=== PATIENT | female | born 1945 | race Caucasian/White ===

== ENCOUNTER 2017-10-08 10:43 | Observation (INO) | payer OTHER ==
[2017-10-08] MEDS ORDERED: NALOXONE 0.4 MG/ML VIAL ONE ×2 (10:52→13:26)
--- NOTE | 2017-10-08 11:22 | RAD REPORT ---
EXAM DESCRIPTION: CT - CTHCSPWOC - 10/08/2017 11:10 am CLINICAL HISTORY: Trauma, fall, head and neck injury. COMPARISON: None. TECHNIQUE: Axial 5 mm thick images of the head were obtained. Axial 2 mm thick images of the cervical spine were obtained with sagittal and coronal reconstruction images generated and reviewed. All CT scans are performed using dose optimization technique as appropriate and may include automated exposure control or mA/KV adjustment according to patient size. FINDINGS: CT HEAD WITHOUT CONTRAST: No acute hemorrhage, hydrocephalus or extra-axial collection is identified.[id number] brain atr ophy.No areas of brain edema or midline shift. The paranasal sinuses and mastoids are clear.The calvarium is intact. CT CERVICAL SPINE WITHOUT CONTRAST: No fracture or subluxation.No prevertebral soft tissues swelling is identified. Moderate lower cervic al degenerative changes. IMPRESSION: No acute intracranial or cervical spine findings.
[2017-10-08] MEDS ORDERED: NA CHLORIDE 0.9% 1,000 ML ONE ×2 (11:30→13:26)
[2017-10-08 11:38] LABS: Absolute Lymphocytes (CBC) 0.9 K/uL (0.7-4.9); Absolute Monocytes 0.4 K/uL (0.1-1.3); Basophils % 0.6 % (0-1.3); Eosinophils % 1.1 % (0-4.4); Hematocrit 42.2 % (36.0-45.0); Lymphocytes % 16.1 % (15.3-44.8); MCH 29.1 pg (27.0-35.0); MCV 86.1 fL (80-100); Monocytes % 7.4 % (3.3-12.3)
[2017-10-08 11:42] LABS: Protime INR 1.12
[2017-10-08 11:43] LABS: Potassium 3.8 mEq/L (3.6-5.0)
--- NOTE | 2017-10-08 11:43 | RAD REPORT ---
EXAM DESCRIPTION: RAD - Chest Single View - 10/08/2017 11:31 am CLINICAL HISTORY: Fall, chest pain COMPARISON: 06/25/2017 FINDINGS: Portable technique limits examination quality. The lungs are grossly clear. The heart is normal in size. No displaced fractures. IMPRESSION: No acute intrathoracic process suspected.
--- NOTE | 2017-10-08 11:44 | RAD REPORT ---
EXAM DESCRIPTION: RAD - Pelvis - 10/08/2017 11:31 am CLINICAL HISTORY: Fall, pelvic pain COMPARISON: 12/02/2015 FINDINGS: No acute fracture or dislocation seen. No aggressive marrow pattern.
[2017-10-08 11:49] LABS: Albumin 3.9 g/dL (3.2-5.5); Bilirubin Direct 0.4 mg/dL (0-0.2); Bilirubin Total 1.1 mg/dL (0.3-1.2); Protein, Total 8.1 g/dL (6.0-8.3)
[2017-10-08 12:28] LABS: CKMB Creatine Kinase MB 46.2 ng/ml (0.3-4.0)
[2017-10-08 12:37] LABS: Barbiturates NEGATIVE; Benzodiazepines POSITIVE; Cocaine NEGATIVE; METHAMPHETAM NEGATIVE; Opiates NEGATIVE; Phencyclidine NEGATIVE; THC Cannibis NEGATIVE
[2017-10-08 13:04] LABS: Urine Blood TRACE (NEG); Urine Glucose 2+ (NEG); Urine Protein NEGATIVE (NEG); Urine Specific Gravity 1.015 (1.005-1.030)
[2017-10-08] MEDS ORDERED: ONDANSETRON 4 MG/2 ML VIAL IV PRN (13:59)
[2017-10-08] MEDS: NA CHLORIDE 0.9% 1,000 ML IV SCH ×3 (14:00→23:50)
[2017-10-08] MEDS ORDERED: D50W 25 GM/50 ML SYRINGE IV PRN (14:04)
[2017-10-08] MEDS ORDERED: GLUCAGON 1 MG/VIAL IM PRN (14:04)
--- NOTE | 2017-10-08 14:07 | ER ---
Nurse's Notes [facility] Name: Lala Wall Age: 72 yrs Sex: Female : 1945 Arrival Date: 10/08/2017 Time: 10:45 Bed 2 Private MD: Diagnosis: Altered mental status, unspecified;Opioid abuse with intoxication Presentation: 10/08 10:46 Presenting complaint: EMS states: EMS states patient fell approximately 40 minutes ae1 prior to arrival, patient denies pain, denies LOC, patient is drowsy. States she feels weak. Care prior to arrival: V/S 160/90, 98%RA, FSBS 328. Mechanism of Injury: Fall. 10:46 Acuity: RENZO 3 ae1 10:46 Method Of Arrival: EMS: [facility] ae1 12:14 Transition of care: patient was not received from another setting of care. Onset of ae1 symptoms is unknown. Initial Sepsis Screen: Does the patient meet any 2 criteria? Altered Mental Status. Does the patient have a suspected source of infection? No. Patient's initial sepsis screen is negative. Historical: - Allergies: 14:42 No Known Allergies; ae1 - Home Meds: 12:20 Pain Pump - Morphine [Active]; Dilaudid 8 mg four times a day [Active]; ae1 - PMHx: 12:20 Chronic pain; Diabetes - NIDDM; Hypertension; ae1 - PSHx: 12:20 back surgery; ae1 - Immunization history:: Adult Immunizations not up to date. - Social history:: Smoking status: Patient uses tobacco products, smokes one-half pack cigarettes per day. Screenin:10 Abuse screen: Denies threats or abuse. Nutritional screening: No deficits noted. ae1 Tuberculosis screening: No symptoms or risk factors identified. Fall Risk Fall in past 12 months (25 points). Secondary diagnosis (15 points) Patient is weak. . IV access (20 points). Ambulatory Aid- None/Bed Rest/Nurse Assist (0 pts). Gait- Weak (10 pts.). Mental Status- Overestimates/Forgets Limitations (15 pts.). Assessment: 11:07 General: Appears in no apparent distress. unkempt, Behavior is cooperative, drowsy, ae1 Patient responds to verbal stimuli . Pain: Denies pain. Neuro: Level of Consciousness is obeys commands, lethargic, Oriented to person, place. Cardiovascular: Heart tones S1 S2 present. Respiratory: Airway is patent Respiratory effort is even, unlabored, shallow, Respiratory pattern is regular, Breath sounds are clear bilaterally. GI: Patient arrived soiled in own BM and saturated in urine. Clothing saturated and soiled with stool. EENT: Oral mucosa is dry. Poor dentition noted. Derm: Skin is pale. Musculoskeletal: No signs and/or symptoms reported regarding the musculoskeletal system. 11:07 Derm: Skin to buttocks appears mottled. ae1 11:30 Reassessment: Patient soiled the bed with urine and stool, area cleansed, adult brief ae1 applied, new bedding applied. 12:12 Reassessment: Patient and/or family updated on plan of care and expected duration. Pain ae1 level reassessed. General: Behavior is agitated, combative, restless. : Urine is clear. 12:21 Reassessment: Patient is restless, continues to pull at monitoring equipment, and ae1 remove equipment. IV site wrapped in BRYAN wrap. Provider notified, no new orders received. 13:24 Reassessment: Patient appears more relaxed, resting with eyes closed, respirations even ae1 and unlabored, and son are at bedside. 15:09 Reassessment: Report called to Huey Ceron RN, registration notified that report has been ae1 called. 15:21 Reassessment: at bedside explained to nurse that patient sits on heating pads ae1 "constantly" and sustains meadows to the buttocks. Nurse relayed this information via telephone to Dr. Chery, new orders received, orders and new finding relayed to receiving nurse via telephone. Vital Signs: 10:50 BP 152 / 88; Pulse 93; Resp 15; Pulse Ox 96% on R/A; Weight 81.65 kg (R); ae1 12:15 BP 162 / 97; Pulse 98; Resp 16; Pulse Ox 96% on R/A; ae1 12:24 Temp 97.7(TE); ae1 14:36 BP 166 / 90; Pulse 97; Resp 17; Pulse Ox 98% on R/A; ae1 Edward Coma Score: 10:50 Eye Response: to voice(3). Verbal Response: oriented(5). Motor Response: obeys ae1 commands(6). Total: 14. Trauma Score (Adult): 10:50 Eye Response: to voice(0); Verbal Response: oriented(1); Motor Response: obeys ae1 commands(2); Systolic BP: > 89 mm Hg(4); Respiratory Rate: 10 to 29 per min(4); Almond Score: 14; Trauma Score: 11 ED Course: 10:45 Patient arrived in ED. ae1 10:48 Carlos Archuleta PA is PHCP. cp 10:48 Carlos Grimes MD is Attending Physician. cp 10:50 Triage completed. ae1 11:[address] via stretcher. ae1 11:08 CT completed. Patient moved back from CT. cw1 11:09 CT Head C Spine In Process Unspecified. EDMS 11:11 Inserted saline lock: 20 gauge in right antecubital area, using aseptic technique. ae1 Blood collected. 11:11 Arm band placed on right wrist. ae1 11:25 Jonathan Alvarenga RN is Primary Nurse. ae1 11:28 X-ray completed. Patient tolerated procedure poorly. kp1 11:29 XRAY Chest (1 view) In Process Unspecified. EDMS 11:29 XRAY Pelvis In Process Unspecified. EDMS 12:13 No provider procedures requiring assistance completed. ae1 12:13 Placed in gown. Bed in low position. Side rails up X2. Adult w/ patient. Pulse ox on. ae1 NIBP on. Warm blanket given. 12:22 Giordano cath inserted, using sterile technique, 16 Fr., by nh, balloon inflated, to ae1 gravity drainage, urine specimen collected. 12:28 Notified Nurse Practitioner and/or Physician Email Developer of a critical lab result(s), iw CKMB=46.2. 14:05 Dorothea Chery MD is Hospitalizing Provider. cp 15:17 Patient admitted, IV remains in place. ae1 Administered Medications: 10:58 Drug: NARcan 0.4 mg Route: IVP; Site: right antecubital; ae1 11:06 Follow up: Response: Other; Patient is becoming more alert. ae1 11:36 Drug: NS 0.9% 1000 ml Route: IV; Rate: 1 bolus; Site: right antecubital; ae1 15:18 Follow up: IV Status: Completed infusion ae1 13:28 Drug: NS 0.9% 1000 ml Route: IV; Rate: 100 ml/hr; Site: right forearm; ae1 15:00 Follow up: IV Status: Infusion continued upon admission ae1 13:29 Drug: NARcan 0.4 mg Route: IVP; Site: right antecubital; ae1 14:58 Follow up: Response: Other; Patient appears more alert. ae1 Point of Care Testing: Blood Glucose: 11:11 Blood Glucose: 298 mg/dL; ae1 Ranges: Intake: Output: 14:55 Urine: 1600ml (Giordano); Total: 1600ml. ae1 Outcome: 14:06 Decision to Hospitalize by Provider. cp 15:16 Admitted to Med/surg accompanied by tech, family with patient, via stretcher, room 225, ae1 with chart, Report called to LEO Arzate 15:16 Condition: stable 15:16 Instructed on the need for admit, Instructions given to Demonstrated understanding of instructions. 15:18 Patient left the ED. ae1 Signatures: Dispatcher [employer] Katt Dobson RN RN iw Woodley, Crystal cw1 Carlos Archuleta PA PA Jonathan Boyd RN RN ae1 Kristel Martin kp1 Corrections: (The following items were deleted from the chart) 12:22 12:21 Reassessment: Patient is restless, continues to pull at monitoring equipment. ae1 ae1
--- NOTE | 2017-10-08 14:07 | EDPHYS ---
Physician Documentation [facility] Name: Lala Wall Age: 72 yrs Sex: Female : 1945 Arrival Date: 10/08/2017 Time: 10:45 Bed 2 Private MD: ED Physician Carlos Grimes HPI: 10/08 11:00 This 72 yrs old Female presents to ER via EMS with complaints of Fall Injury, cp General Weakness. 11:00 The patient presents with decreased mental status. cp 11:00 Onset: The symptoms/episode began/occurred at an unknown time. Possible causes: drug cp use, narcotics. Associated signs and symptoms: Pertinent negatives: abdominal pain, agitation, vomiting. Current symptoms: In the emergency department the patient's symptoms are unchanged from the initial presentation, despite EMS interventions. Patient's baseline: Neuro: alert and fully oriented, Motor: no deficits, Ambulation: walks without assistance, Speech: normal. The patient has experienced similar episodes in the past, a few times. Historical: - Allergies: 14:42 No Known Allergies; ae1 - Home Meds: 12:20 Pain Pump - Morphine [Active]; Dilaudid 8 mg four times a day [Active]; ae1 - PMHx: 12:20 Chronic pain; Diabetes - NIDDM; Hypertension; ae1 - PSHx: 12:20 back surgery; ae1 - Immunization history:: Adult Immunizations not up to date. - Social history:: Smoking status: Patient uses tobacco products, smokes one-half pack cigarettes per day. ROS: 11:05 Constitutional: Negative for fever. cp 11:05 Unable to obtain ROS due to altered mental status. cp Exam: 11:12 Constitutional: The patient appears non-diaphoretic, well developed, well nourished. cp 11:12 Head/Face: Normocephalic, atraumatic. cp 11:12 Eyes: Periorbital structures: appear normal, Pupils: dilated, bilaterally, sluggish, Conjunctiva: normal, no exudate, no injection, Sclera: no appreciated abnormality, Lids and lashes: appear normal, bilaterally. 11:12 ENT: External ear(s): are unremarkable, Ear canal(s): are normal, clear, TM's: bulging, is not appreciated, bilaterally, dullness, bilaterally, erythema, is not appreciated, bilaterally, Nose: is normal, Mouth: Lips: moist, Oral mucosa: pink and intact, moist, Posterior pharynx: Airway: no evidence of obstruction, patent, Uvula: midline, swelling, is not appreciated, erythema, is not appreciated, exudate, is not appreciated. 11:12 Neck: C-spine: vertebral tenderness, is not appreciated, crepitus, is not appreciated, ROM/movement: is normal, is supple, without pain, no range of motions limitations, no nuchal rigidity. 11:12 Chest/axilla: Inspection: normal, Palpation: is normal, no crepitus, no tenderness. 11:12 Cardiovascular: Rate: normal, Rhythm: regular, Pulses: Pulses are 2+ in right radial artery and left radial artery. Edema: is not appreciated, JVD: is not appreciated. 11:12 Respiratory: the patient does not display signs of respiratory distress, Respirations: normal, no use of accessory muscles, no retractions, no splinting, no tachypnea, labored breathing, is not present, Breath sounds: are clear throughout, no decreased breath sounds, no stridor, no wheezing. 11:12 Abdomen/GI: Inspection: abdomen appears normal, Bowel sounds: active, all quadrants, Palpation: abdomen is soft and non-tender, in all quadrants, rebound tenderness, is not appreciated, voluntary guarding, is not appreciated, involuntary guarding, is not appreciated. 11:12 Back: vertebral tenderness, is not appreciated. 11:12 Musculoskeletal/extremity: Exam is negative for decreased range of motion, deformity, injury. 11:12 Skin: cellulitis, is not appreciated, no rash present. 11:12 Neuro: Orientation: to person, place, Mentation: sleepy, Motor: moves all fours, strength is normal. 12:00 ECG was reviewed by the Attending Physician. cp Vital Signs: 10:50 BP 152 / 88; Pulse 93; Resp 15; Pulse Ox 96% on R/A; Weight 81.65 kg (R); ae1 12:15 BP 162 / 97; Pulse 98; Resp 16; Pulse Ox 96% on R/A; ae1 12:24 Temp 97.7(TE); ae1 14:36 BP 166 / 90; Pulse 97; Resp 17; Pulse Ox 98% on R/A; ae1 Edward Coma Score: 10:50 Eye Response: to voice(3). Verbal Response: oriented(5). Motor Response: obeys ae1 commands(6). Total: 14. Trauma Score (Adult): 10:50 Eye Response: to voice(0); Verbal Response: oriented(1); Motor Response: obeys ae1 commands(2); Systolic BP: > 89 mm Hg(4); Respiratory Rate: 10 to 29 per min(4); [place] Score: 14; Trauma Score: 11 MDM: 10:48 Patient medically screened. cp 13:25 Physician consultation: Dorothea Chery MD was contacted at 13:25, regarding admission, cp to the telemetry unit. patient's condition, and will see patient in ED, shortly. 13:30 Data reviewed: vital signs, nurses notes, lab test result(s), EKG, radiologic studies, cp CT scan, plain films. 13:30 Test interpretation: by ED physician or midlevel provider: ECG, plain radiologic cp studies. 10/08 10:56 Order name: Basic Metabolic Panel 10/08 10:56 Order name: BNP; Complete Time: 12:06 10/08 10:56 Order name: CBC with Diff; Complete Time: 12:06 10/08 12:06 Interpretation: Normal except: RBC 4.90; MPV 7.0; RAVI% 74.8. 10/08 10:56 Order name: Ckmb; Complete Time: 12:32 cp 10/08 12:32 Interpretation: Abnormal: CKMB 46.2. 10/08 10:56 Order name: CPK; Complete Time: 12:32 10/08 12:32 Interpretation: Abnormal: CPK 922. 10/08 10:56 Order name: LFT's; Complete Time: 12:29 10/08 12:29 Interpretation: Normal except: SGOT 48; BILID 0.4; GLOB 4.2; A/G 0.9. 10/08 10:56 Order name: Magnesium; Complete Time: 12:58 10/08 10:56 Order name: PT-INR; Complete Time: 12:06 10/08 10:56 Order name: Ptt, Activated; Complete Time: 12:06 10/08 10:56 Order name: Troponin (emerg Dept Use Only); Complete Time: 12:06 10/08 10:56 Order name: UDS; Complete Time: 12:58 10/08 12:58 Interpretation: Normal except: BZO POSITIVE. 10/08 10:56 Order name: Basic Metabolic Panel; Complete Time: 12:32 [facility] 10/08 12:32 Interpretation: Normal except: GLUC 315; GFR 70. 10/08 12:41 Order name: Urine Dipstick--Ancillary (enter results) 10/08 12:41 Order name: Urine --Ancillary (enter results) 10/08 10:56 Order name: XRAY Chest (1 view); Complete Time: 12:06 10/08 10:56 Order name: EKG; Complete Time: 10:57 10/08 10:56 Order name: Cardiac monitoring; Complete Time: 11:06 10/08 10:56 Order name: EKG - Nurse/Tech; Complete Time: 12:12 10/08 10:56 Order name: IV Saline Lock; Complete Time: 11:06 10/08 10:56 Order name: Labs collected and sent; Complete Time: 12:24 10/08 10:56 Order name: XRAY Pelvis; Complete Time: 12:06 10/08 10:56 Order name: CT Head C Spine; Complete Time: 12:06 10/08 12:41 Order name: Urine Dipstick-Ancillary; Complete Time: 13:19 [facility] 10/08 12:41 Order name: Urine --Ancillary; Complete Time: 13:19 [facility] 10/08 14:00 Order name: Heart Healthy [facility] 10/08 14:01 Order name: Physical Therapy Consult [facility] 10/08 10:56 Order name: O2 Per Protocol; Complete Time: 11:06 10/08 10:56 Order name: O2 Sat Monitoring; Complete Time: 11:06 10/08 10:56 Order name: Urine Dipstick-Ancillary (obtain specimen); Complete Time: 12:12 10/08 10:56 Order name: Giordano; Complete Time: 12:12 cp EC:00 Rate is 98 beats/min. Rhythm is regular. KS interval is normal. QRS interval is normal. cp QT interval is normal. T waves are Inverted in leads V2, V3. Interpreted by me. Reviewed by me. Administered Medications: 10:58 Drug: NARcan 0.4 mg Route: IVP; Site: right antecubital; ae1 11:06 Follow up: Response: Other; Patient is becoming more alert. ae1 11:36 Drug: NS 0.9% 1000 ml Route: IV; Rate: 1 bolus; Site: right antecubital; ae1 15:18 Follow up: IV Status: Completed infusion ae1 13:28 Drug: NS 0.9% 1000 ml Route: IV; Rate: 100 ml/hr; Site: right forearm; ae1 15:00 Follow up: IV Status: Infusion continued upon admission ae1 13:29 Drug: NARcan 0.4 mg Route: IVP; Site: right antecubital; ae1 14:58 Follow up: Response: Other; Patient appears more alert. ae1 Point of Care Testing: Blood Glucose: 11:11 Blood Glucose: 298 mg/dL; ae1 Ranges: Critical Glucose Levels:Adult <50 mg/dl or >400 mg/dl <40 mg/dl or >180 mg/dl Disposition: 16:00 Chart complete. cp Disposition: 10/08/17 14:06 Hospitalization ordered by Dorothea Chery for Observation. Preliminary diagnosis are Altered mental status, unspecified, Opioid abuse with intoxication. - Bed requested for Telemetry/MedSurg (observation). - Status is Observation. ae1 - Condition is Stable. - Problem is new. - Symptoms have improved. UTI on Admission? No Addendum: 10/10/2017 08:50 Co-signature as Attending Physician, Carlos Grimes MD I agree with the assessment and c chahal plan of care. Signatures: Dispatcher [employer] EDFL Carlos Grimes MD MD cha Page, Corey, PA PA cp Jonathan Alvarenga, LEO RN ae1 Bhavya Howard
--- NOTE | 2017-10-08 14:37 | P.HP ---
Certification for Inpatient Patient admitted to: Observation With expected LOS: <2 Midnights Patient will require the following post-hospital care: None Practitioner: I am a practitioner with admitting privileges, knowledge of patient current condition, hospital course, and medical plan of care. Services: Services provided to patient in accordance with Admission requirements found in Title 42 Section 412.3 of the Code of Federal Regulations Patient History Date of Service: 10/08/17 Primary Care Provider: Dr Sandoval. Reason for admission: Fall History of Present Illness: 72-year-old female with significant past medical history of diabetes, hypertension, chronic pain syndrome who sees pain management doctor. Presented to the ED complaining of having some fallen at home. Patient's at bedside states that she has been not acting herself and this morning earlier around 4:00 a.m. was weak and fell on the floor. Patient was alert and oriented at that time it has been asked for her to get up she stated however that she would like to just lay there. At around 6 or 7 o'clock in the morning. Again patient was still on the floor in this tried to get her up however they were not successful. EMS was called who helped the patient up to the bathroom and then patient was brought over to the hospital after she consented to come to the hospital. Patient is a chronic pain syndrome patient who sees a pain management doctor for her morphine pump that she has implanted. In addition patient also takes Dilaudid 4 mg q.4 hr in a day. He does have past history of abuse of pain medication. Currently had a pain pill box under her undergarment which was only filled with 1 pill of 12th total pills. Patient states that she took 1 Dilaudid pill this morning and that is it. However states that she does not know how much she took and he does not recall either as she does not sharing information with him. Allergies No Known Allergies Allergy (Unverified 12/03/15 05:56) Home Medications: Amitriptyline HCl 75 mg PO BID 11/15/16 Baclofen 10 mg PO DAILY 11/15/16 Gabapentin 600 mg PO Q6H 11/15/16 Hydromorphone HCl [Dilaudid] 8 mg PO TID 11/15/16 Metformin HCl [Glucophage] 500 mg PO BID 11/15/16 Temazepam [Restoril] 30 mg PO BEDTIME 11/15/16 - Past Medical/Surgical History Diabetic: Yes -: HTN -: DM -: gall bladder -: hysterectomy -: back surgery - Social History Alcohol use: No CD- Drugs: No Caffeine use: No Review of Systems General: As per HPI Physical Examination - Physical Exam General: Alert, In no apparent distress, Oriented x3 HEENT: Atraumatic Neck: Supple Respiratory: Clear to auscultation bilaterally, Normal air movement Cardiovascular: Normal pulses, Regular rate/rhythm Gastrointestinal: Normal bowel sounds, Soft and benign, Non-distended Musculoskeletal: No clubbing Integumentary: No rashes Neurological: Normal speech, Normal tone, Abnormal strength - Studies Laboratory Data (last 24 hrs) 10/08/17 11:05: PT 13.2 H, INR 1.12, APTT 28.9 10/08/17 11:05: WBC 5.3, Hgb 14.3, Hct 42.2, Plt Count 160 10/08/17 11:05: B-Natriuretic Peptide 44 10/08/17 11:05: Sodium 136, Potassium 3.8, BUN 13, Creatinine 0.81, Glucose 315 H, Magnesium 2.0, Total Bilirubin 1.1, AST 48 H, ALT 43, Alkaline Phosphatase 86 Assessment and Plan - Problems (Diagnosis) (1) Fall Current Visit: Yes Status: Acute Plan: Fall at home. Most likely 2.2 to pain medication abuse -xray negative for fracture -Fall precautions -PT consulted Qualifiers: Encounter type: initial encounter Qualified Code(s): W19.XXXA - Unspecified fall, initial encounter (2) Rhabdomyolysis Current Visit: Yes Status: Acute Plan: non Traumatic Rhabdomyolysis -CK elevated to 995. -IV fluids and avoid nephrotoxic agent -Repeat CK in AM Qualifiers: Rhabdomyolysis type: non-traumatic Qualified Code(s): M62.82 - Rhabdomyolysis (3) Drug abuse Current Visit: Yes Status: Acute Plan: Overdose of Pain medication. pt has a pill box she keeps in her undergarment. Only has 1 pill of 12 left -Narcan x 2 in the ED -Hold Dilaudid (4) Chronic pain disorder Current Visit: No Status: Chronic (5) Diabetes Current Visit: No Status: Chronic Qualifiers: Diabetes mellitus type: type 2 Diabetes mellitus driller hand insulin use: without [facility] use Diabetes mellitus complication status: without complication Qualified Code(s): E11.9 - Type 2 diabetes mellitus without complications (6) HTN (hypertension) Current Visit: No Status: Chronic Qualifiers: Hypertension type: essential hypertension Discharge Plan: Home Plan to discharge in: 24 Hours - Advance Directives Does patient have a Living Will: No Does patient have a Durable POA for Healthcare: No - Code Status/Comfort Care Code Status Assessed: Yes Critical Care: No
[2017-10-08] MEDS: INSULIN -REGULAR HUMAN 50 UNIT/0.5 ML ML SQ SCH ×2 (16:17→21:28)
[2017-10-09 06:14] LABS: Absolute Lymphocytes (CBC) 1.6 K/uL (0.7-4.9); Absolute Monocytes 0.3 K/uL (0.1-1.3); Absolute Neutrophil 2.9 K/uL (1.8-8.0); Basophils % 0.7 % (0-1.3); Eosinophils % 2.2 % (0-4.4); Hematocrit 38.2 % (36.0-45.0); Lymphocytes % 32.1 % (15.3-44.8); MCH 28.7 pg (27.0-35.0); MCV 86.1 fL (80-100); MPV 7.1 fL (7.6-11.3); Monocytes % 6.9 % (3.3-12.3); RBC Red Blood Cell Count 4.43 M/uL (3.86-4.86)
[2017-10-09 06:46] LABS: Albumin 3.2 g/dL (3.2-5.5); Bilirubin Total 1.7 mg/dL (0.3-1.2); Magnesium 2.1 mg/dL (1.8-2.5); Phosphorus 2.7 mg/dL (2.5-4.3); Potassium 3.4 mEq/L (3.6-5.0); Protein, Total 6.4 g/dL (6.0-8.3)
[2017-10-09 06:50] LABS: CKMB Creatine Kinase MB 14.1 ng/ml (0.3-4.0)
[2017-10-09] MEDS: INSULIN -REGULAR HUMAN 50 UNIT/0.5 ML ML SQ SCH ×2 (07:30→11:30)
[2017-10-09] MEDS ORDERED: POTASSIUM CL SA 10 MEQ TAB PO ONE (08:00)
[2017-10-09] MEDS ORDERED: ACETAMINOPHEN 500 MG TAB PO ONE (09:00)
[2017-10-09] MEDS: NA CHLORIDE 0.9% 1,000 ML IV SCH (10:00)
--- NOTE | 2017-10-09 11:21 | P.SSS ---
Patient History Date of Service: 10/09/17 Primary Care Provider: Dr Sandoval. Reason for admission: Fall History of Present Illness: 72-year-old female with significant past medical history of diabetes, hypertension, chronic pain syndrome who sees pain management doctor. Presented to the ED complaining of having some fallen at home. Patient's at bedside states that she has been not acting herself and this morning earlier around 4:00 a.m. was weak and fell on the floor. Patient was alert and oriented at that time it has been asked for her to get up she stated however that she would like to just lay there. At around 6 or 7 o'clock in the morning. Again patient was still on the floor in this tried to get her up however they were not successful. EMS was called who helped the patient up to the bathroom and then patient was brought over to the hospital after she consented to come to the hospital. Patient is a chronic pain syndrome patient who sees a pain management doctor for her morphine pump that she has implanted. In addition patient also takes Dilaudid 4 mg q.4 hr in a day. He does have past history of abuse of pain medication. Currently had a pain pill box under her undergarment which was only filled with 1 pill of 12th total pills. Patient states that she took 1 Dilaudid pill this morning and that is it. However states that she does not know how much she took and he does not recall either as she does not sharing information with him. Allergies No Known Allergies Allergy (Unverified 12/03/15 05:56) Home Medications: Amitriptyline HCl 75 mg PO BID 11/15/16 Baclofen 10 mg PO DAILY 11/15/16 Gabapentin 600 mg PO Q6H 11/15/16 Metformin HCl [Glucophage*] 500 mg PO BID 11/15/16 Temazepam [Restoril] 30 mg PO BEDTIME 11/15/16 - Past Medical/Surgical History Has patient received pneumonia vaccine in the past: Yes Diabetic: Yes -: HTN -: DM -: gall bladder -: hysterectomy -: back surgery - Social History Smoking Status: Current every day smoker Alcohol use: No CD- Drugs: Yes Caffeine use: Yes Place of Residence: Home Review of Systems General: As per HPI Physical Examination - Vital Signs Temperature: 98.4 F Blood Pressure: 143/77 Pulse: 74 Respirations: 18 Pulse Ox (%): 97 - Physical Exam General: Alert, In no apparent distress HEENT: Atraumatic, PERRLA, Mucous membr. moist/pink, EOMI, Sclerae nonicteric Neck: Supple, 2+ carotid pulse no bruit, No LAD, Without JVD or thyroid abnormality Respiratory: Clear to auscultation bilaterally, Normal air movement Cardiovascular: Regular rate/rhythm, Normal S1 S2 Gastrointestinal: Normal bowel sounds, No tenderness Musculoskeletal: No tenderness Integumentary: No rashes Neurological: Normal gait, Normal speech, Normal strength at 5/5 x4 extr, Normal tone, Normal affect Lymphatics: No axilla or inguinal lymphadenopathy - Studies Laboratory Data (last 24 hrs) 10/08/17 11:05: PT 13.2 H, INR 1.12, APTT 28.9 10/08/17 11:05: WBC 5.3, Hgb 14.3, Hct 42.2, Plt Count 160 10/08/17 11:05: B-Natriuretic Peptide 44 10/08/17 11:05: Sodium 136, Potassium 3.8, BUN 13, Creatinine 0.81, Glucose 315 H, Magnesium 2.0, Total Bilirubin 1.1, AST 48 H, ALT 43, Alkaline Phosphatase 86 - Diagnosis (Problem(s)) (1) Fall Current Visit: Yes Status: Resolved Plan: Fall at home. Most likely 2.2 to pain medication abuse -Fall precautions -PT Home health -DC now Qualifiers: Encounter type: initial encounter Qualified Code(s): W19.XXXA - Unspecified fall, initial encounter (2) Rhabdomyolysis Current Visit: Yes Status: Resolved Plan: non Traumatic Rhabdomyolysis. Resolved now -CK Improved and Cr WNL -PO Hydration encouraged Qualifiers: Rhabdomyolysis type: non-traumatic Qualified Code(s): M62.82 - Rhabdomyolysis (3) Drug abuse Current Visit: Yes Status: Acute Plan: Overdose of Pain medication. pt has a pill box she keeps in her undergarment. Only has 1 pill of 12 left -Narcan x 2 in the ED -DC dilaudid at home now. -F/U with PCP (4) Chronic pain disorder Current Visit: No Status: Chronic (5) Diabetes Current Visit: No Status: Chronic Qualifiers: Diabetes mellitus type: type 2 Diabetes mellitus snf insulin use: without intermediate designer use Diabetes mellitus complication status: without complication Qualified Code(s): E11.9 - Type 2 diabetes mellitus without complications (6) HTN (hypertension) Current Visit: No Status: Chronic Qualifiers: Hypertension type: essential hypertension - Disposition Disposition: ROUTINE DISCHARGE Condition: GOOD Patient Discharge Instructions: Please f/u with Dr Sandoval and Dr Freeman in 1 week post discharge. Please STOP taking Dilaudid for pain as it is causing you to have AMS and taking more than prescribed medication can have several SE on you. Diet: Regular Activity: Ad liana
--- NOTE | 2017-10-09 16:12 | EKG ---
Test Date: 2017-10-08 Test Time: 11:54:23 Laundry Machine Operator: KWAN MEASUREMENT RESULTS: Intervals: Rate: 98 IL: 176 QRSD: 136 QT: 410 QTc: 523 [place]: P: 63 IL: 176 QRS: -31 T: 44 INTERPRETIVE STATEMENTS: Sinus rhythm Right bundle branch block Abnormal ECG Compared to ECG 06/25/2017 11:14:12 no significant change from previous ECG Electronically Signed On 10-09-17 16:11:58 CDT by Guy Mueller
== END 2017-10-09 12:21 | disposition home or self-care (01) ==
LOC: ER 10:43 → ERHOLD 14:06 → 2ND 15:10
PROVIDERS: ADMIT Family Medicine; ATTEND Family Medicine
DX: M62.82 Rhabdomyolysis (principal); F11.10 Opioid abuse, uncomplicated; W01.0XXA Fall on same level from slipping, tripping and stumbling without subsequent striking against object, initial encounter; E11.9 Type 2 diabetes mellitus without complications; I10 Essential (primary) hypertension; G89.4 Chronic pain syndrome; Y92.009 Unspecified place in unspecified non-institutional (private) residence as the place of occurrence of the external cause; F17.210 Nicotine dependence, cigarettes, uncomplicated
CPT/HCPCS: 36415; 51702; 70450; 71045; 72125; 72170; 80048; 80053; 80076; 80307 ×9; 81003; 81025; 82550 ×2; 82553 ×2; 82962 ×5; 83735 ×2; 83880; 84100; 84484; 85025 ×2; 85610; 85730; 93005; 96361; 96374; 99291; 99292; G0378 ×2; J2310 ×2; J7030 ×4

== ENCOUNTER 2018-11-01 12:00 | Emergency (ER) | payer OTHER ==
[2018-11-01 12:46] LABS: Absolute Lymphocytes (CBC) 1.9 K/uL (0.7-4.9); Absolute Monocytes 0.6 K/uL (0.1-1.3); Absolute Neutrophil 3.5 K/uL (1.8-8.0); Basophils % 0.8 % (0-1.3); Eosinophils % 3.8 % (0-4.4); Hematocrit 41.7 % (36.0-45.0); Lymphocytes % 29.8 % (15.3-44.8); Monocytes % 9.9 % (3.3-12.3); RBC Red Blood Cell Count 4.58 M/uL (3.86-4.86)
[2018-11-01] MEDS ORDERED: NA CHLORIDE 0.9% 1,000 ML ONE ×2 (12:46→14:14)
[2018-11-01] MEDS ORDERED: INSULIN -REGULAR HUMAN 50 UNIT/0.5 ML ML ONE (14:13)
--- NOTE | 2018-11-01 14:53 | EKG ---
Test Date: 2018-11-01 Test Time: 12:33:17 Engineer Station Mainline: AYE MEASUREMENT RESULTS: Intervals: Rate: 76 [place]: 158 QRSD: 134 QT: 426 QTc: 479 [place]: P: 52 [place]: 158 QRS: -24 T: 12 INTERPRETIVE STATEMENTS: Normal sinus rhythm Right bundle branch block Abnormal ECG Compared to ECG 10/08/2017 11:54:23 No significant changes Electronically Signed On 11-01-18 14:52:44 CDT by Guy Mueller
--- NOTE | 2018-11-01 15:43 | ER ---
Nurse's Notes [facility] Name: Lala Wall Age: 73 yrs Sex: Female : 1945 Arrival Date: 11/01/2018 Time: 12:04 Bed 7 Private MD: Rafita Toney T Diagnosis: Hyperglycemia, unspecified;Dehydration Presentation: 11/01 12:21 Presenting complaint: Sent from Dr. Hamilton's office for SBP 80s. Pt reports dizziness hb and near syncopal episode this morning. Denies pain/fever/SOB. Transition of care: patient was not received from another setting of care. Onset of symptoms was November 01, 2018. Risk Assessment: Do you want to hurt yourself or someone else? Patient reports no desire to harm self or others. Initial Sepsis Screen: Does the patient meet any 2 criteria? No. Patient's initial sepsis screen is negative. Does the patient have a suspected source of infection? No. Patient's initial sepsis screen is negative. Care prior to arrival: None. 12:21 Method Of Arrival: Ambulatory hb 12:21 Acuity: RENZO 3 hb Triage Assessment: 12:25 General: Appears in no apparent distress. comfortable, Behavior is cooperative, bp appropriate for age, anxious. Pain: Denies pain. EENT: No deficits noted. Neuro: Level of Consciousness is awake, alert, obeys commands, Oriented to person, place, time, situation, Appropriate for age. Cardiovascular: No deficits noted. Rhythm is sinus rhythm. Respiratory: Airway is patent Respiratory effort is even, unlabored, Respiratory pattern is regular, symmetrical. GI: No signs and/or symptoms were reported involving the gastrointestinal system. : No signs and/or symptoms were reported regarding the genitourinary system. Derm: No deficits noted. Musculoskeletal: Circulation, motion, and sensation intact. Range of motion: intact in all extremities. Historical: - Allergies: 12:23 No Known Allergies; hb - Home Meds: 12:23 Amitriptyline Oral [Active]; Aspirin 350mg Oral once daily [Active]; Baclofen Oral hb [Active]; Dilaudid 8 mg four times a day [Active]; lisinopril Oral [Active]; Metformin Oral [Active]; gabapentin Oral [Active]; Pain Pump - Morphine [Active]; Restoril Oral [Active]; - PMHx: 12:23 Chronic pain; Diabetes - NIDDM; Hypertension; hb - PSHx: 12:23 back surgery; hb - Immunization history:: Adult Immunizations up to date. - Social history:: Smoking status: Patient/guardian denies using tobacco. - Ebola Screening: : No symptoms or risks identified at this time. - Family history:: not pertinent. - Hospitalizations: : No recent hospitalization is reported. Screenin:03 Abuse screen: Denies threats or abuse. Denies injuries from another. Nutritional bp screening: No deficits noted. Tuberculosis screening: No symptoms or risk factors identified. Fall Risk None identified. Assessment: 12:30 General: SEE TRIAGE NOTE. Pain: Denies pain. bp 14:00 Reassessment: IVF INFUSING. REPEAT BGL DUE PRIOR TO DISPO. bp 15:49 Reassessment: PT D/C HOME AMBULATORY WITH FAMILY, DX WITH DEHYDRATION AND HYPERGLYCEMIA.bp Vital Signs: 12:22 BP 133 / 93; Pulse 85; Resp 16; Temp 97.5; Pulse Ox 96% on R/A; Weight 60.78 kg; Height hb 5 ft. 6 in. (167.64 cm); Pain 0/10; 13:05 BP 109 / 60; Pulse 72; Resp 14; Pulse Ox 93% ; bp 14:44 BP 110 / 70; Pulse 70; Resp 14; Pulse Ox 96% ; bp 15:32 BP 110 / 67; Pulse 72; Resp 14; Temp 97.5; Pulse Ox 98% ; bp 12:22 Body Mass Index 21.63 (60.78 kg, 167.64 cm) hb ED Course: 12:04 Patient arrived in ED. mr 12:04 Rafita Toney MD is Private Physician. mr 12:17 Lobo Norton MD is Attending Physician. rn 12:22 Triage completed. hb 12:22 Arm band placed on. hb 12:30 Inserted saline lock: 22 gauge in right antecubital area, using aseptic technique. bp 12:35 Giancarlo Santacruz, LEO is Primary Nurse. bp 13:03 Patient has correct armband on for positive identification. Bed in low position. Call bp light in reach. Side rails up X2. 13:32 EKG done, by human performance technologist. reviewed by Lobo Norton MD. at1 15:42 Rafita Toney MD is Referral Physician. rn 15:50 No provider procedures requiring assistance completed. IV discontinued, intact, bp bleeding controlled, No redness/swelling at site. Pressure dressing applied. Administered Medications: 12:30 Drug: NS 0.9% 1000 ml Route: IV; Rate: 1000 ml; Site: right antecubital; bp 13:30 Follow up: IV Status: Completed infusion; IV Intake: 1000ml bp 14:00 Drug: Insulin Regular Human 10 units {Co-Signature: ph (Audrey Mayer RN).} Route: bp Sub-Q; Site: right upper abdomen; 15:48 Follow up: Response: Blood sugar is lowered bp 14:00 Drug: Insulin Regular Human 5 units {Co-Signature: ph (Audrey Mayer RN).} Route: IVP; bp Site: right forearm; 15:48 Follow up: Response: Blood sugar is lowered bp 14:00 Drug: NS 0.9% 1000 ml Route: IV; Rate: 1000 ml; Site: right forearm; bp 15:10 Follow up: IV Status: Completed infusion; IV Intake: 1000ml bp Point of Care Testing: Blood Glucose: 15:32 Blood Glucose: 263 mg/dL; bp Ranges: Intake: 13:30 IV: 1000ml; Total: 1000ml. bp 15:10 IV: 1000ml; Total: 2000ml. bp Outcome: 15:42 Discharge ordered by . rn 15:50 Discharged to home ambulatory, with family. bp 15:50 Condition: stable 15:50 Discharge instructions given to patient, Instructed on discharge instructions, follow up and referral plans. Demonstrated understanding of instructions, follow-up care. 15:50 Patient left the ED. bp Signatures: Jossy Nogueira Roman, MD MD rn Gonzales, Amanda, training and development officer EKG Tat1 Bruna Burris RN RN Giancarlo Urbina RN RN bp Audrey Mayer RN ph
--- NOTE | 2018-11-01 15:44 | EDPHYS ---
Physician Documentation [facility] Name: Lala Wall Age: 73 yrs Sex: Female : 1945 Arrival Date: 11/01/2018 Time: 12:04 Bed 7 Private MD: Rafita Toney T ED Physician Lobo Norton HPI: 11/01 15:37 This 73 yrs old Female presents to ER via Ambulatory with complaints of Blood rn Pressure Problem. 15:37 Reports sent here by Dr. Hamilton for evaluation of low blood pressure, patient reports rn feels fine, unclear reason why she was at Dr. Gillis office but reports urine was tested and was negative. Took her BP once and told her was low, sent here for eval. Patient states feels fine, a little tired, but denies fever/syncope/chest pain/sob/abd pain/vomiting/diarrhea. No blood in stool. . Onset: The symptoms/episode began/occurred today. Severity of symptoms:. The patient has not experienced similar symptoms in the past. The patient has been recently seen by a physician:. Historical: - Allergies: 12:23 No Known Allergies; hb - Home Meds: 12:23 Amitriptyline Oral [Active]; Aspirin 350mg Oral once daily [Active]; Baclofen Oral hb [Active]; Dilaudid 8 mg four times a day [Active]; lisinopril Oral [Active]; Metformin Oral [Active]; gabapentin Oral [Active]; Pain Pump - Morphine [Active]; Restoril Oral [Active]; - PMHx: 12:23 Chronic pain; Diabetes - NIDDM; Hypertension; hb - PSHx: 12:23 back surgery; hb - Immunization history:: Adult Immunizations up to date. - Social history:: Smoking status: Patient/guardian denies using tobacco. - Ebola Screening: : No symptoms or risks identified at this time. - Family history:: not pertinent. - Hospitalizations: : No recent hospitalization is reported. ROS: 15:37 Constitutional: Negative for fever, chills, and weight loss, Eyes: Negative for injury, rn pain, redness, and discharge, Neck: Negative for injury, pain, and swelling, Cardiovascular: Negative for chest pain, palpitations, and edema, Respiratory: Negative for shortness of breath, cough, wheezing, and pleuritic chest pain, Abdomen/GI: Negative for abdominal pain, nausea, vomiting, diarrhea, and constipation, Back: Negative for injury and pain, : Negative for injury, bleeding, discharge, and swelling, MS/Extremity: Negative for injury and deformity, Skin: Negative for injury, rash, and discoloration, Neuro: Negative for headache, numbness, tingling, and seizure. Exam: 12:44 ECG was reviewed by the Attending Physician. rn 15:37 Constitutional: This is a well developed, well nourished patient who is awake, alert, rn and in no acute distress. Walking to room without assistance, drinking bottle of water. Head/Face: Normocephalic, atraumatic. Eyes: Pupils equal round and reactive to light, extra-ocular motions intact. Lids and lashes normal. Conjunctiva and sclera are non-icteric and not injected. Cornea within normal limits. Periorbital areas with no swelling, redness, or edema. ENT: MMM Cardiovascular: Regular rate and rhythm. No pulse deficits. Respiratory: Lungs have equal breath sounds bilaterally, clear to auscultation. No increased work of breathing, no retractions or nasal flaring. Abdomen/GI: soft, non-tender Skin: Warm, dry MS/ Extremity: Pulses equal, no cyanosis. Neurovascular intact. Full, normal range of motion. Equal circumference. Neuro: Awake and alert, GCS 15, oriented to person, place, time, and situation. Cranial nerves II-XII grossly intact. Motor strength 5/5 in all extremities. Sensory grossly intact. Cerebellar exam normal. Normal gait. Vital Signs: 12:22 BP 133 / 93; Pulse 85; Resp 16; Temp 97.5; Pulse Ox 96% on R/A; Weight 60.78 kg; Height hb 5 ft. 6 in. (167.64 cm); Pain 0/10; 13:05 BP 109 / 60; Pulse 72; Resp 14; Pulse Ox 93% ; bp 14:44 BP 110 / 70; Pulse 70; Resp 14; Pulse Ox 96% ; bp 15:32 BP 110 / 67; Pulse 72; Resp 14; Temp 97.5; Pulse Ox 98% ; bp 12:22 Body Mass Index 21.63 (60.78 kg, 167.64 cm) hb MDM: 12:17 Patient medically screened. rn 15:37 Differential Diagnosis incorrectly taken BP, dehydration hyperglycemia. Data reviewed: rn vital signs, nurses notes, lab test result(s), EKG, and as a result, I will discharge patient. Counseling: I had a detailed discussion with the patient and/or guardian regarding: the historical points, exam findings, and any diagnostic results supporting the discharge/admit diagnosis, lab results, the need for outpatient follow up, to return to the emergency department if symptoms worsen or persist or if there are any questions or concerns that arise at home. Response to treatment: the patient's symptoms have markedly improved after treatment, the patient's condition has returned to base line, the patient is now symptom free, patient is well hydrated. and as a result, I will discharge patient. Special discussion: I discussed with the patient/guardian in detail that at this point there is no indication for admission to the hospital. It is understood, however, that if the symptoms persist or worsen the patient needs to return immediately for re-evaluation. 15:42 ED course: BP normal entire time here, never hypotensive, + mild dehydration and rn hyperglycemia, no acute infection or abnormal blood work, will dc home as most likely incorrect measurement especially given that patient was grossly asymptomatic. . 11/01 12:22 Order name: CBC with Diff; Complete Time: 13:43 rn 11/01 12:22 Order name: Basic Metabolic Panel; Complete Time: : rn 11/01 12:22 Order name: Procalcitonin; Complete Time: 13: rn 11/01 12:22 Order name: IV Start; Complete Time: 13:02 rn 11/01 12:22 Order name: EKG; Complete Time: 12: rn 11/01 12:22 Order name: EKG - Nurse/Tech; Complete Time: 13: rn EC:44 Rate is 76 beats/min. Rhythm is regular. QRS [place] is Normal. WI interval is normal. QRS rn interval is prolonged at 134 msec. QT interval is normal. No Q waves. T waves are Normal. No ST changes noted. Clinical impression: No evidence of ischemia and RBBB. Interpreted by me. Reviewed by me. Administered Medications: 12:30 Drug: NS 0.9% 1000 ml Route: IV; Rate: 1000 ml; Site: right antecubital; bp 13:30 Follow up: IV Status: Completed infusion; IV Intake: 1000ml bp 14:00 Drug: Insulin Regular Human 10 units {Co-Signature: ph (Audrey Mayer RN).} Route: bp Sub-Q; Site: right upper abdomen; 15:48 Follow up: Response: Blood sugar is lowered bp 14:00 Drug: Insulin Regular Human 5 units {Co-Signature: ph (Audrey Mayer RN).} Route: IVP; bp Site: right forearm; 15:48 Follow up: Response: Blood sugar is lowered bp 14:00 Drug: NS 0.9% 1000 ml Route: IV; Rate: 1000 ml; Site: right forearm; bp 15:10 Follow up: IV Status: Completed infusion; IV Intake: 1000ml bp Point of Care Testing: Blood Glucose: 15:32 Blood Glucose: 263 mg/dL; bp Ranges: Critical Glucose Levels:Adult <50 mg/dl or >400 mg/dl <40 mg/dl or >180 mg/dl Disposition: 11/01/18 15:42 Discharged to Home. Impression: Hyperglycemia, unspecified, Dehydration. - Condition is Stable. - Discharge Instructions: Dehydration, Adult, Hyperglycemia. - Medication Reconciliation Form, Thank You Letter, Antibiotic Education, Prescription Opioid Use form. - Follow up: Rafita Toney MD; When: As needed; Reason: Recheck today's complaints, Re-evaluation by your physician. - Problem is new. - Symptoms have improved. Signatures: Dispatcher [employer] Lobo Woodall MD MD rn Baxter, Heather RN Giancarlo Ken RN RN bp Audrey Mayer RN ph Corrections: (The following items were deleted from the chart) 15:49 12:22 Urine Dipstick-Ancillary ordered. rn bp 15:50 15:42 11/01/2018 15:42 Discharged to Home. Impression: Hyperglycemia, unspecified; bp Dehydration. Condition is Stable. Forms are Medication Reconciliation Form, Thank You Letter, Antibiotic Education, Prescription Opioid Use. Follow up: Rafita Toney; When: As needed; Reason: Recheck today's complaints, Re-evaluation by your physician. Problem is new. Symptoms have improved. rn
== END 2018-11-01 15:50 | disposition home or self-care (01) ==
LOC: ER 12:00
DX: R73.9 Hyperglycemia, unspecified (principal); E86.0 Dehydration; E11.9 Type 2 diabetes mellitus without complications; G89.29 Other chronic pain
CPT/HCPCS: 96361; 93005; 85025; 80048; 36415; 82962; 84145; 96372; 96374; 99284; J7030 ×2

== ENCOUNTER 2024-01-01 17:20 | Emergency (ER) | payer OTHER ==
--- OUTSIDE RECORDS SUMMARY | 2024-01-01 17:24 | XMS REPORT | Continuity of Care Document ---
Author Name Unknown Address [address] [facility] [address] [place] [address] [facility] thconnect Address [address] [place] [address] Care Team Providers Care Advertising Agent Name Role Phone JUAN RAMON ROSALES Primary Care Physician ASHLEIGH Ji Attending Clinician NAVID Christie Attending Clinician Chaim le Payers Payer Name Policy Type Policy Number Effective Date Expirati on Date Source MEDICARE PART A \T\ B [id number] 1994 00:00:00 [facility] [employer] [id number] 2018 00:00:00 Allergies, Adverse Reactions, Alerts Allergy Name Allergy Type Status Severity Reaction(s) Onset Date Inactive Date Treating Clinician Comments Source NO KNOWN ALLERGIE S Drug Class Active [facility] Encounters Start Date/Time End Date/Time Encounter Type Admission Type Attending Clinicians Care Facility Care Department Encounter ID Source 2020-05-21 00:00:00 2020-05-21 00:00:00 Outpatient ASHLEIGH PEREIRA [facility] [id number] [facility] 2020-05-19 12:15:00 2020-05-19 12:15:00 Outpatient NAVID GONZALEZ [facility] [id number] [facility]
[2024-01-01] MEDS ORDERED: ALBUTEROL 2.5 MG/3 ML NEB SOL ONE (18:33)
[2024-01-01] MEDS ORDERED: IPRATROPIUM BROM 0.5MG/2.5ML ONE (18:33)
[2024-01-01 19:03] LABS: SARS-CoV-2 Antigen CONTROL BLUE LINE VIS/BG OK; SARS-CoV-2 Antigen Rapid Res Negative (Negative)
--- NOTE | 2024-01-01 19:49 | RAD REPORT ---
EXAM DESCRIPTION: RAD - Chest Single View - 01/01/2024 7:29 pm CLINICAL HISTORY: PRODUCTIVE COUGH COMPARISON: Chest Single View dated 10/08/2017; Chest Single View dated 06/25/2017; Abdomen 1 View ([facility] B) dated 07/21/2016; Chest Pa And Lat (2 Views) dated 07/21/2016 FINDINGS: Lines: None. Lungs: Increased coarsening of the pulmonary interstitial markings. Pleural: No significant pleural effusions or pneumothorax. Cardiac: The heart size is within normal limits. Mediastinum: Within normal limits. Bones: No acute fractures. Other: None IMPRESSION: Coarsened interstitial markings could reflect a mild infectious or inflammatory process including atypical sources.
--- NOTE | 2024-01-01 20:28 | ER ---
Nurse's Notes [facility] Name: Lala Wall Age: 78 yrs Sex: Female : 1945 Arrival Date: 01/01/2024 Time: 17:20 Bed 17 Private MD: Diagnosis: Community-acquired pneumonia;Acute bronchitis Presentation: 12/31 17:44 Chief complaint: Patient states: Pt c/o productive cough for green phlegm, tl4 fever/chills, and chest tightness since Tuesday. Coronavirus screen: chills, congestion, cough unrelated to allergies, fever, muscle pain, shaking with chills. Ebola Screen: No symptoms or risks identified at this time. Initial Sepsis Screen: Does the patient meet any 2 criteria? No. Patient's initial sepsis screen is negative. Does the patient have a suspected source of infection? No. Patient's initial sepsis screen is negative. Risk Assessment: Do you want to hurt yourself or someone else? Patient reports no desire to harm self or others. Onset of symptoms was December 30, 2023. 17:44 Method Of Arrival: Ambulatory tl4 17:44 Acuity: RENZO 3 tl4 Triage Assessment: 17:48 General: Appears in no apparent distress. Behavior is calm, cooperative. Pain: tl4 Complains of pain in chest. EENT: No signs and/or symptoms were reported regarding the EENT system. Neuro: Level of Consciousness is awake, alert, obeys commands, Oriented to person, place, time, situation. Cardiovascular: Capillary refill < 3 seconds Patient's skin is warm and dry. Respiratory: Reports cough that is productive, Airway is patent Respiratory effort is even, unlabored, Respiratory pattern is regular, symmetrical. GI: No signs and/or symptoms were reported involving the gastrointestinal system. : No signs and/or symptoms were reported regarding the genitourinary system. Derm: No signs and/or symptoms reported regarding the dermatologic system. Musculoskeletal: No signs and/or symptoms reported regarding the musculoskeletal system. Historical: - Allergies: 17:48 No Known Allergies; tl4 - PMHx: 17:48 Chronic pain; Diabetes - NIDDM; Hypertension; tl4 - PSHx: 17:48 None; tl4 - Immunization history:: Adult Immunizations unknown. - Infectious Disease History:: Denies. - Social history:: Smoking status: Patient reports the use of cigarette tobacco products, denies chronic smoking, but will smoke occasionally. Screenin:30 [facility] ED Fall Risk Assessment (Adult) History of falling in the last 3 months, kj2 including since admission Yes- single mechanical fall (1 pt) Confusion or Disorientation No (0 pts) Intoxicated or Sedated No (0 pts) Impaired Gait No (0 pts) Mobility Assist Device Used No (0 pt) Altered Elimination No (0 pt) Score/Fall Risk Level 0 - 2 = Low Risk Maintained a safe environment, Educated pt \T\ family on fall prevention, incl call for assistance when getting out of bed, Hourly rounding (assess needs \T\ fall precautionary measures) done. Abuse screen: Denies threats or abuse. Denies injuries from another. Nutritional screening: No deficits noted. Tuberculosis screening: No symptoms or risk factors identified. Assessment: 18:28 General: Appears in no apparent distress. Behavior is calm, cooperative. Pain: kj2 Complains of pain in chest Pain currently is 6 out of 10 on a pain scale. Neuro: Level of Consciousness is awake, alert, Oriented to person, place, time. Cardiovascular: Capillary refill < 3 seconds Patient's skin is warm and dry. Respiratory: Airway is patent Respiratory effort is even, unlabored. GI: No deficits noted. : No deficits noted. 18:47 Reassessment: No changes from previously documented assessment. Patient and/or family kj2 updated on plan of care and expected duration. Pain level reassessed. Patient is alert, oriented x 3, equal unlabored respirations, skin warm/dry/pink. Vital Signs: 17:44 BP 198 / 97; Pulse 69; Resp 20; Temp 98.6(O); Pulse Ox 97% on R/A; Weight 58.97 kg; tl4 Height 5 ft. 6 in. ; Pain 6/10; 18:27 BP 179 / 90; Pulse 65; Resp 18; Temp 98.6; Pulse Ox 98% on R/A; kj2 20:41 BP 160 / 84; Pulse 66; Resp 18; Pulse Ox 98% on R/A; pc2 17:44 Body Mass Index 20.98 (58.97 kg, 167.64 cm) tl4 17:44 Pain Scale: Adult tl4 ED Course: 17:25 Patient arrived in ED. im 17:39 Kirstie Montoya MD is Attending Physician. sd2 17:48 Triage completed. tl4 17:51 Arm band placed on right wrist. tl4 18:16 Yeny Mckeon, RN is Primary Nurse. kj2 18:29 No provider procedures requiring assistance completed. kj2 18:30 Patient has correct armband on for positive identification. Bed in low position. Call nj1 light in reach. Adult w/ patient. Provided Education on: call light, fall precautions. 18:47 Flu Sent. kj2 18:47 SARS RAPID Sent. kj2 18:58 Attending Physician role handed off by Kirstie Montoya MD rt 18:58 Clyde Stringer MD is Attending Physician. rt 19:07 Report given to Marilynn Alonso RN. nj1 19:31 XRAY Chest (1 view) In Process Unspecified. EDMS 20:39 Patient did not have IV access during this emergency room visit. pc2 Administered Medications: 18:47 Drug: DuoNeb Nebulize (3:1) (2.5 mg - 0.5 mg) 3 ml Nebulizer once Route: Nebulizer; kj2 20:32 Follow up: Response: No adverse reaction pc2 20:36 Drug: AZITHromycin PO 500 mg PO once Route: PO; pc2 20:38 Follow up: Response: No adverse reaction; Medication administered at discharge. pc2 Medication: 20:40 VIS not applicable for this client. pc2 Outcome: 20:27 Discharge ordered by MD. rt 20:38 Discharged to home ambulatory, pc2 20:38 Condition: stable 20:38 Discharge instructions given to patient, Instructed on discharge instructions, follow up and referral plans. medication usage, Demonstrated understanding of instructions, follow-up care, medications, Prescriptions given X 3, 20:41 Patient left the ED. pc2 Signatures: Dispatcher [employer] EDMS Kirstie Montoya MD MD sd2 Clyde Stringer MD MD rt Jacinta Gamble, RN RN nj1 Tori Salmeron Toni RN RN tl4 Crystal Couch, RN RN pc2 Yeny Mckeon, RN RN kj2
--- NOTE | 2024-01-01 20:28 | EDPHYS ---
Physician Documentation [facility] Name: Lala Wall Age: 78 yrs Sex: Female : 1945 Arrival Date: 01/01/2024 Time: 17:20 Bed 17 Private MD: ED Physician Clyde Stringer HPI: 12/31 19:00 This 78 yrs old Female presents to ER via Ambulatory with complaints of Chest sd2 Congestion. 19:00 78-year-old female presents with chief complaint of productive cough with green sputum sd2 and wheezing that has been ongoing for the past few days. She denies any associated fever, vomiting or diarrhea. No known sick contacts. She does have a history of childhood asthma but reports no other significant cardiac or pulmonary history.. Historical: - Allergies: 17:48 No Known Allergies; tl4 - PMHx: 17:48 Chronic pain; Diabetes - NIDDM; Hypertension; tl4 - PSHx: 17:48 None; tl4 - Immunization history:: Adult Immunizations unknown. - Infectious Disease History:: Denies. - Social history:: Smoking status: Patient reports the use of cigarette tobacco products, denies chronic smoking, but will smoke occasionally. ROS: 19:00 Constitutional: Negative for fever, chills, and weight loss, Eyes: Negative for injury, sd2 pain, redness, and discharge, Cardiovascular: Negative for chest pain, palpitations, and edema, 19:00 Abdomen/GI: Negative for abdominal pain, nausea, vomiting, diarrhea. MS/Extremity: Negative for injury and deformity, Skin: Negative for injury, rash, and discoloration, Neuro: Negative for headache, numbness and tingling. 19:00 Respiratory: Positive for cough, wheezing, Negative for dyspnea on exertion, Exam: 19:00 Constitutional: This is a well developed, well nourished patient who is awake, alert, sd2 and in no acute distress. Head/Face: Normocephalic, atraumatic. Eyes: EOMI, normal conjunctiva bilaterally Chest/axilla: Normal chest wall appearance and motion. Nontender with no deformity. Cardiovascular: Regular rate and rhythm with a normal S1 and S2. No gallops, murmurs, or rubs. 2+ distal pulses. 19:00 Respiratory: Lungs have equal breath sounds bilaterally, Expiratory wheezing noted in all lung mares, no increased work of breathing Abdomen/GI: Soft, non-tender, with normal bowel sounds. No guarding or rebound. No evidence of tenderness throughout. Skin: Warm, dry with normal turgor. Normal color with no rashes, no lesions, and no evidence of cellulitis. MS/ Extremity: Pulses equal, no cyanosis. Neurovascular intact. Full, normal range of motion. Psych: Awake, alert, with orientation to person, place and time. Behavior, mood, and affect are within normal limits. Vital Signs: 17:44 BP 198 / 97; Pulse 69; Resp 20; Temp 98.6(O); Pulse Ox 97% on R/A; Weight 58.97 kg; tl4 Height 5 ft. 6 in. ; Pain 6/10; 18:27 BP 179 / 90; Pulse 65; Resp 18; Temp 98.6; Pulse Ox 98% on R/A; kj2 20:41 BP 160 / 84; Pulse 66; Resp 18; Pulse Ox 98% on R/A; pc2 17:44 Body Mass Index 20.98 (58.97 kg, 167.64 cm) tl4 17:44 Pain Scale: Adult tl4 MDM: 18:13 Patient medically screened. sd2 19:00 Differential Diagnosis viral URI, bronchitis, PNA among others. Data reviewed: vital sd2 signs, nurses notes. Transition of care: After a detail discussion of the patient's case, care is transferred to Clyde Stringer MD. Refusal of service: The patient/guardian displays adequate decision making capability and despite a detailed discussion of alternatives, benefits, risks, and consequences refuses: all lab tests. 20:52 I considered the following discharge prescriptions or medication management in the rt emergency department Medications were administered in the Emergency Department. See MAR. Independent interpretation of the following test(s) in the Emergency Department X-Ray: My interpretation is No pneumothorax seen on interpretation of x-ray images. Test considered but Not performed: Labs: Patient declined blood work. Care significantly affected by the following chronic conditions: Diabetes. Counseling: I had a detailed discussion with the patient and/or guardian regarding the historical points, exam findings, and any diagnostic results supporting the discharge/admit diagnosis, lab results, radiology results, the need for outpatient follow up, to return to the emergency department if symptoms worsen or persist or if there are any questions or concerns that arise at home. Response to treatment: the patient's symptoms have markedly improved after treatment. 12/31 18:30 Order name: SARS RAPID; Complete Time: 19:20 sd2 12/31 18:30 Order name: Flu; Complete Time: 19:20 sd2 12/31 18:30 Order name: XRAY Chest (1 view); Complete Time: 19:50 sd2 Administered Medications: 18:47 Drug: DuoNeb Nebulize (3:1) (2.5 mg - 0.5 mg) 3 ml Nebulizer once Route: Nebulizer; kj2 20:32 Follow up: Response: No adverse reaction pc2 20:36 Drug: AZITHromycin PO 500 mg PO once Route: PO; pc2 20:38 Follow up: Response: No adverse reaction; Medication administered at discharge. pc2 Disposition Summary: 01/01/24 20:27 Discharge Ordered Notes: Location: Home rt Problem: new rt Symptoms: have improved rt Condition: Stable rt Diagnosis - Community-acquired pneumonia rt - Acute bronchitis rt Followup: rt - With: Private Physician - When: 2 - 3 days - Reason: Discharge Instructions: - Discharge Summary Sheet rt - Acute Bronchitis, Adult rt - Community-Acquired Pneumonia, Adult rt Forms: - Medication Reconciliation Form rt - Antibiotic Education rt - Prescription Opioid Use rt - Patient Portal Instructions rt - Leadership Thank You Letter rt Prescriptions: - azithromycin 250 mg Oral tablet - take 1 tablet ORAL route daily; 4 tablet; Refills: 0, Product Selection rt Permitted - albuterol sulfate 90 mcg/actuation Inhalation HFA Aerosol Inhaler - inhale 3 puff INHALATION route every 4 hours; 2 Each; Refills: 0, Product rt Selection Permitted - Prednisone 20 mg Oral Tablet - take 2 tablets ORAL route once daily for 5 days; 10 tablet; Refills: 0, Product rt Selection Permitted Signatures: Dispatcher [employer] EDKirstie Flores MD MD sd2 Clyde Stringer MD MD rt Abelardo Malone RN RN tl4 Crystal oCuch RN RN pc2 Yeny Mckeon RN RN kj2 Corrections: (The following items were deleted from the chart) 18:31 18:30 SARS-COV-2 Antigen Rapid+I.LAB.BRZ ordered. EDMS EDMS 18:31 18:30 Influenza Screen (A \T\ B)+BA.LAB.BRZ ordered. EDMS EDMS
[2024-01-01] MEDS ORDERED: AZITHROMYCIN 250 MG TAB ONE (20:33)
[2024-01-05 14:50] VITALS: BP 160/84; TEMP 98.6; O2SAT 98
== END 2024-01-01 20:41 | disposition home or self-care (01) ==
LOC: ER 17:20
DX: J18.9 Pneumonia, unspecified organism (principal); J20.9 Acute bronchitis, unspecified; E11.9 Type 2 diabetes mellitus without complications; I10 Essential (primary) hypertension; G89.29 Other chronic pain; F17.210 Nicotine dependence, cigarettes, uncomplicated; Z11.52 Encounter for screening for COVID-19
CPT/HCPCS: 36415; 87804 ×2; 71045; 94640; 99284; 87811; J7613; J7644

== ENCOUNTER 2025-01-21 14:20 | Emergency (ER) | payer OTHER ==
--- OUTSIDE RECORDS SUMMARY | 2025-01-21 14:25 | XMS REPORT | Continuity of Care Document ---
Author Name Unknown Address [address] [facility] [address] [place] [address] Organization [facility] [place] Address [address] [facility] [address] [place] [address] Care Team Providers Care Hot Tar Roofer Helper Name Role Phone JUAN RAMON ROSALES Primary Care Physician Unacatherine Bautista MD, Clyde Harvey Attending Clinician [phone] Willie Hernandez MD Attending Clinician [phone] Noemi Powell MD Attending Clinician [phone] NOEMI POWELL Attending Clinician Unavailable ASHLEIGH WOMACK Attending Clinician UnavailNAVID Pugh Attending Clinician UnavailNoemi Padron MD Admitting Clinician [phone] NOEMI POWELL Admitting Clinician Unavailable Payers Payer Name Policy Type Policy Number Effective Date Expirati on Date Source MEDICARE PART A AND B [id number] 1996 00:00:00 MEDICARE PART A AND B Medicare [id number] 2024 00:00:00 MISC INS NO NETWORK RBG COMM [id number] 2025 00:00:00 MEDICARE PART A \\T\\ B [id number] 1994 00:00:00 [facility] [employer] [facility] [id number] 2018 00:00:00 Problems Condition Name Condition Details Condition Category Status Onset Date Resolution Date Last Treatment Date Treating Clinician Comments Source Pressure ulcer of left buttock, unstageabl e Pressure ulcer of left buttock, unstageabl e Disease Active 01-03 00:00: 00 Ranjana concepcion [facility] SDH (subdural hematoma) SDH (subdural hematoma) Disease Active 01-02 00:00: 00 Ranjana concepcion [facility] Allergies, Adverse Reactions, Alerts Allergy Name Allergy Type Status Severity Reaction(s) Onset Date Inactive Date Treating Clinician Comments Source NO KNOWN ALLERGIE S Drug Class Active [facility] Social History Social Habit Start Date Stop Date Quantity Comments Source Gender identity 2025-01-01 21:49:46 Identifies as female gender (finding) [facility] ASSERTION Possible [facility] Sexual orientation [facility] Alcoholic beverage intake 2025-01-05 00:00:00 2025-01-05 00:00:00 Lifetime non-drinker (finding) [facility] History of Social function 2025-01-03 00:00:00 2025-01-03 00:00:00 [facility] Sex 2025-01-01 20:35:14 2025-01-01 20:35:14 Female (finding) [facility] Smoking Status Start Date Stop Date Source Tobacco smoking consumption unknown [facility] Medications Ordered Medication Name Filled Medication Name Start Date Stop Date Current Medication? Ordering Clinician Indication Dosage Frequency Signature (SIG) Comments Components Source famotidine (Pepcid) 20 MG tablet famotidine (Pepcid) 20 MG tablet 01-06 00:00: 00 02-05 23:59 :00 No 20mg QD Take 1 tablet by mouth 1 time each day. Do not start before January 06, 2025. Ranjana concepcion Baldo [facility] albuterol HFA 90 mcg/act inhaler albuterol HFA 90 mcg/act inhaler 01-05 17:57: 31 Yes 2{puff} Q4H Inhale 2 puffs every 4 hours if needed for wheezing. Ranjana Bland [facility] metFORMIN (Glucophage ) 500 MG tablet metFORMIN (Glucophage ) 500 MG tablet 01-05 17:57: 31 Yes 500mg Q.5D Take 500 mg by mouth in the morning and 500 mg in the evening. Ranjana concepcion Baldo [facility] zolpidem (Ambien) 10 MG tablet zolpidem (Ambien) 10 MG tablet 01-05 17:57: 31 Yes 10mg QD Take 10 mg by mouth as needed at bedtime for sleep. Ranjana Boothe gabapentin (Neurontin) 800 MG tablet gabapentin (Neurontin) 800 MG tablet 01-05 17:57: 31 Yes 800mg Q.[id number] 3D Take 800 mg by mouth 3 times a day as needed. Ranjana Boothe ibuprofen 200 MG tablet ibuprofen 200 MG tablet 01-05 17:57: 31 Yes 200mg Q6H Take 200 mg by mouth every 6 hours if needed for mild pain (1-3). Ranjana Boothe dexAMETHaso ne (Decadron) tablet 3 mg dexAMETHaso ne (Decadron) tablet 3 mg 01-05 16:00: 00 01-06 05:59 :00 No 3mg Q.25D [Order 1 Start] Name: dexAMETHas one (Decadron) tablet 3 mg Signed Summary: 3 mg, Oral, Every 6 hours scheduled, First dose on 01/05/25 at 1600, For 2 doses [Order 1 End] [Order 2 Start] Name: dexAMETHas one (Decadron) tablet 2 mg Signed Summary: 2 mg, Oral, Every 6 hours scheduled, First dose on Tue01/06/25 at 0600, For 2 doses [Order 2 End] [Order 3 Start] Name: dexAMETHas one (Decadron) tablet 1 mg Signed Summary: 1 mg, Oral, Once, On Tue01/06/25 at 1800, For 1 dose [Order 3 End] Ranjana Boothe acetaminoph en (Tylenol) 325 MG tablet acetaminoph en (Tylenol) 325 MG tablet 01-05 00:00: 00 01-15 23:59 :00 No 650mg Q6H Take 2 tablets by mouth every 6 hours if needed for mild pain (1-3) for up to 10 days. Ranjana Boothe levETIRAcet am (Keppra) 500 MG tablet levETIRAcet am (Keppra) 500 MG tablet 01-05 00:00: 00 01-09 23:59 :00 No 500mg Q.5D Take 1 tablet by mouth in the morning and 1 tablet before bedtime. Do all this for 7 doses. Ranjana Boothe dexAMETHaso ne (Decadron) 1 MG tablet dexAMETHaso ne (Decadron) 1 MG tablet 01-05 00:00: 00 01-08 23:59 :00 No Take 3 tablets by mouth every 6 hours for 1 day, THEN 2 tablets every 6 hours for 1 day, THEN 1 tablet 1 time each day for 1 day. Ranjana Boothe methocarbam ol (Robaxin) 750 mg in sodium chloride 0.9 % 100 mL IVPB methocarbam ol (Robaxin) 750 mg in sodium chloride 0.9 % 100 mL IVPB 01-04 20:00: 00 01-04 21:04 :00 No 750mg 750 mg, Intravenou s, at 100 mL/hr, Administer over 60 Minutes, Once, On Tue01/04/25 at 2000, For 1 dose Ranjana Boothe famotidine (Pepcid) tablet 20 mg famotidine (Pepcid) tablet 20 mg 01-04 16:15: 00 Yes 20mg QD 20 mg, Oral, Daily, First dose on Tue01/04/25 at 1615 Ranjana Boothe HYDROmorpho ne (Dilaudid) injection 1 mg HYDROmorpho ne (Dilaudid) injection 1 mg 01-04 15:15: 00 01-04 15:12 :00 No 1mg 1 mg, Intravenou s, Once, On Tue01/04/25 at 1515, For 1 dose Ranjana Boothe niCARdipine (Cardene) 40 mg/200 mL NS (0.2 mg/mL) premix niCARdipine (Cardene) 40 mg/200 mL NS (0.2 mg/mL) premix 01-04 14:00: 00 Yes 5mg/h 5-15 mg/hr (25-75 mL/hr), Intravenou s, Continuous , Starting on Tue01/04/25 at 1400, Infusion Type: Titrate, Initial Dose (mg/hr): 2.5, Titrate by (mg/hr): 2.5, Every (minutes): 15, Target Blood Pressure (mmHg): SBP 100 to 150 mmHg, Max Dose (mg/hr): 15 Ranjana Boothe ibuprofen tablet 400 mg ibuprofen tablet 400 mg 01-04 14:00: 00 01-04 14:00 :00 No 400mg 400 mg, Oral, Once, On Tue01/04/25 at 1400, For 1 dose Ranjana Booteh hydrALAZINE injection 10 mg hydrALAZINE injection 10 mg 01-04 13:50: 44 01-05 13:30 :12 No 10mg 10 mg, Intravenou s, Every 20 min PRN, high blood pressure, Systolic blood pressure greater than 160 mmHg and/or Diastolic blood pressure greater than 90 mmHg. Hold is Heart Rate greater than 100 beats per minute., Starting on Tue01/04/25 at 1350, For 2 doses, Recovery (only) Ranjana Boothe acetaminoph en (Ofirmev) injection 1,000 mg acetaminoph en (Ofirmev) injection 1,000 mg 01-04 13:00: 00 01-04 13:18 :00 No 1000mg 1,000 mg, Intravenou s, at 400 mL/hr, Administer over 15 Minutes, Once, On Tue01/04/25 at 1300, For 1 dose, Recovery & On Unit Ranjana Boothe fentaNYL (Sublimaze) injection 25 mcg fentaNYL (Sublimaze) injection 25 mcg 01-04 12:53: 29 01-04 13:43 :00 No 25ug 25 mcg, Intravenou s, Every 5 min PRN, moderate pain (4-6), Starting on Tue01/04/25 at 1253, For 4 doses, Recovery (only), Hold for respirator y rate of 8 or less. Ranjana Boothe iohexol (OMNIPaque) 300 MG/ML injection iohexol (OMNIPaque) 300 MG/ML injection 01-04 12:18: 23 01-04 12:50 :27 No As needed, Starting on Tue01/04/25 at 1218, Intraproce dure Ranjana Boothe levETIRAcet am (Keppra) tablet 500 mg levETIRAcet am (Keppra) tablet 500 mg 01-03 21:00: 00 01-09 08:59 :00 No 500mg Q.5D 500 mg, Oral, Every 12 hours scheduled, First dose on Tue01/03/25 at 2100, For 11 doses Ranjana Boothe juan nutrition powder 1 packet juan nutrition powder 1 packet 01-03 17:00: 00 Yes 1{packe t} 1 packet, Oral, 2 times daily with meals, First dose on Tue01/03/25 at 1700, Fruit punch flavor Ranjana Boothe gabapentin (Neurontin) capsule 800 mg gabapentin (Neurontin) capsule 800 mg 01-03 15:30: 00 Yes 800mg Q.[id number] 3D 800 mg, Oral, Every 8 hours scheduled, First dose (after last modificati on) on Tue01/03/25 at 1530 Ranjana Boothe ibuprofen tablet 400 mg ibuprofen tablet 400 mg 01-03 11:45: 00 01-03 12:38 :00 No 400mg 400 mg, Oral, Once, On Tue01/03/25 at 1145, For 1 dose Ranjana Boothe heparin injection 5,000 Units heparin injection 5,000 Units 01-03 09:00: 00 Yes 5000U Q8H 5,000 Units, Subcutaneo us, Every 8 hours, First dose on Tue01/03/25 at 0900 Ranjana Boothe methocarbam ol (Robaxin) 750 MG tablet methocarbam ol (Robaxin) 750 MG tablet 01-02 15:30: 00 Yes 750mg Q.5D Take 750 mg by mouth in the morning and 750 mg in the evening. Ranjana Boothe polyethylen e glycol (PEG) 3350 (Miralax) packet 17 g polyethylen e glycol (PEG) 3350 (Miralax) packet 17 g 01-02 15:30: 00 Yes 17g Q12H 17 g, Oral, Every 12 hours, First dose on Tue01/02/25 at 1530, Dissolve 17 g in 120 to 240 mL (4 to 8 ounces) of beverage. Ranjana Boothe methocarbam ol (Robaxin) tablet 500 mg methocarbam ol (Robaxin) tablet 500 mg 01-02 15:26: 42 Yes 500mg 500 mg, Oral, Every 12 hours PRN, muscle spasms, Starting on Tue01/02/25 at 1526 Ranjana Boothe HYDROmorpho ne (Dilaudid) 4 MG tablet HYDROmorpho ne (Dilaudid) 4 MG tablet 01-02 15:15: 00 Yes 4mg Q.[id number] 3D Take 4 mg by mouth in the morning and 4 mg at noon and 4 mg in the evening. Ranjana Boothe gabapentin (Neurontin) capsule 800 mg gabapentin (Neurontin) capsule 800 mg 01-02 15:15: 00 01-03 15:25 :00 No 800mg Q8H 800 mg, Oral, Every 8 hours, First dose on Tue01/02/25 at 1515 Ranjana Boothe ceFAZolin Sodium (Ancef) 2 g in sterile water injection ceFAZolin Sodium (Ancef) 2 g in sterile water injection 01-02 15:00: 00 01-03 06:07 :00 No 2g Q8H 2 g, Intravenou s, at 200 mL/hr, Administer over 6 Minutes, Every 8 hours, First dose on Tue01/02/25 at 1500, For 1 day, Recovery & On Unit, Suspected Indication (Select all that apply): Surgical Prophylaxi s Ranjana Boothe sennosides (Senokot) tablet 8.6 mg sennosides (Senokot) tablet 8.6 mg 01-02 09:00: 00 Yes 1{tbl} Q.5D 8.6 mg (1 tablet), Oral, 2 times daily, First dose on Tue01/02/25 at 0900 Ranjana Boothe levETIRAcet am (Keppra) injection 500 mg levETIRAcet am (Keppra) injection 500 mg 01-02 09:00: 00 01-03 14:21 :40 No 500mg Q.5D 500 mg, Intravenou s, Every 12 hours scheduled, First dose on Tue01/02/25 at 0900, For 7 days, Administer over 3 minutes IV push for doses up to 1500 mg. Ranjana Bland Epic acetaminoph en (Tylenol) tablet 1,000 mg acetaminoph en (Tylenol) tablet 1,000 mg 01-02 07:00: 00 01-02 10:28 :00 No 1000mg 1,000 mg, Oral, Once, On Tue01/02/25 at 0900, For 1 dose, Recovery (only), If not given within the last 6 hours. Max acetaminop hen from all sources = 4,000 mg in 24 hours. Ranjana Bland Epic niCARdipine (Cardene) 40 mg/200 mL NS (0.2 mg/mL) premix niCARdipine (Cardene) 40 mg/200 mL NS (0.2 mg/mL) premix 01-02 07:00: 00 01-02 15:22 :48 No 5mg/h 5-15 mg/hr (25-75 mL/hr), Intravenou s, Continuous , Starting on Tue01/02/25 at 0700, Infusion Type: Titrate, Initial Dose (mg/hr): 5, Titrate by (mg/hr): 2.5, Every (minutes): 15, Target Blood Pressure (mmHg): SBP 100 to 150 mmHg, Max Dose (mg/hr): 15 Ranjana Boothe HYDROmorpho ne PF (Dilaudid) injection 0.2 mg HYDROmorpho ne PF (Dilaudid) injection 0.2 mg 01-02 06:51: 41 01-02 13:32 :00 No .2mg 0.2 mg, Intravenou s, Every 10 min PRN, severe pain (7-10), Starting on Tue01/02/25 at 0651, For 4 doses, Recovery (only), Hold for respirator y rate or 8 or less. Ranjana Boothe oxyCODONE (Roxicodone ) solution 2.5 mg oxyCODONE (Roxicodone ) solution 2.5 mg 01-02 06:51: 41 01-02 10:30 :00 No 2.5mg 2.5 mg, Oral, Once as needed, moderate pain (4-6), Starting on Tue01/02/25 at 0651, For 1 dose, Recovery (only) Ranjana Bland Epic magnesium sulfate IVPB 2 g magnesium sulfate IVPB 2 g 01-02 06:16: 16 01-03 14:13 :40 No 2g 2 g, Intravenou s, Administer over 4 Hours, As needed, Abnormal Lab Result, FOR ICU USE ONLY, Starting on Tue01/02/25 at 0616, For magnesium 1.6 to 1.8 mg/dL: Replace with Mg Sulfate 2 grams IVPB over 4 hours x 1 dose. For magnesium 1.9 to 2.3 mg/dL(in CV surgery patients only): Replace with Mg Sulfate 2 grams IVPB over 4 hours X 1 dose> For magnesium </= 1.5 mg/dL: Replace with Mg Sulfate 2 grams IVPB over 4 hours X 2 doses. Notify MD if magnesium </= 1.1 mg/dL Recheck Magnesium level 2 hours after Magnesium replacemen t complete. Ranjana Bland Epic perflutren lipid microsphere s (Definity) injection 10 mcL/kg (Dosing Weight) perflutren lipid microsphere s (Definity) injection 10 mcL/kg (Dosing Weight) 01-02 05:40: 22 01-02 05:40 :00 No 10uL/kg 10 mcL/kg, Intravenou s, Once in imaging, Starting on Tue01/02/25 at 0540, For 1 dose, Contrast - for use by imaging provider only. Prior to administra tion or further dilution, Definity product must be activated. First, bring vial to room temperatur e. Then, shake vial for 45 seconds using manufactur er-provide d Vialmix apparatus. Do not use if the 45 second activation cycle has not been completed. Following activation , the product will appear as a milky white suspension and may be used immediatel y. If not used within 5 minutes of activation , re-suspend by inverting and shaking the vial for 10 seconds. Unused product must be discarded within 12 hours after activation . To administer undiluted, draw up activated product into a 3 or 5 mL syringe. If ordered as a diluted syringe, draw up 8.7 mL of preservati ve free saline into a 10 mL syringe, then slowly withdraw 1.3 mL of activated Definity into same syringe. Gently shake by hand to evenly distribute . If ordered as a diluted infusion, draw up 1.3 mL of activated Definity, then add to a 50 mL preservati ve free saline bag. Gently squeeze IV bag to evenly distribute prior to administra tion. Ranjana Boothe sodium chloride (NS) 0.9 % flush 10 mL sodium chloride (NS) 0.9 % flush 10 mL 01-02 00:40: 00 Yes 10mL Q12H 10 mL, Intravenou s, Every 12 hours, First dose on Tue01/02/25 at 0040, Administer at least once every 12 hours Ranjana Boothe insulin lispro (HumaLOG, Admelog) injection 2-8 Units [id number] 6973-0 7-23 00:35: 37 Yes 2U Q.[id number] 3D 2-8 Units, Subcutaneo us, 3 times daily PRN, high blood sugar, with meals, Starting on Tue01/02/25 at 0035, For BG < 70, follow hypoglycem ia protocol and notify ordering provider. If patient can eat or drink, give oral carbohydra te as ordered per hypoglycem ia protocol. If patient NPO, give dextrose 50 % IV as ordered per hypoglycem ia protocol. If NPO and no IV access, give glucagon IM as ordered per hypoglycem ia protocol. Check BG every 15 minutes and repeat treatment if continued BG < 80., Correction Insulin Dosing: (DO NOT CHANGE DEFAULT SELECTION/ VALUES): Starting, BG < 70 instructio ns: Follow Hypoglycem ia Orders, BG 70-149 instructio ns: No Dose Needed, BG 150-199: 2, BG 200-249: 4, BG 250-299: 6, BG >/= 300: 8, BG > 300 instructio ns: Contact Provider Ranjana Boothe acetaminoph en (Tylenol) tablet 650 mg acetaminoph en (Tylenol) tablet 650 mg 01-02 00:35: 17 Yes 650mg Q6H 650 mg, Oral, Every 6 hours PRN, mild pain (1-3), Starting on Tue01/02/25 at 0035 Ranjana Boothe glucagon injection 1 mg glucagon injection 1 mg 01-02 00:34: 53 Yes 1mg 1 mg, Intramuscu lar, As needed, For BG < 70 mg/dL if no IV access and patient is either Unconsciou s, unable to swallow or npo, Starting on Tue01/02/25 at 0034, For BG < 70 mg/dL if no IV access and patient is either Unconsciou s, unable to swallow or npo and notify MD. Ranjana Bland Epic dextrose 50 % solution 25 g dextrose 50 % solution 25 g 01-02 00:34: 53 Yes 25g 25 g, Intravenou s, As needed, other, if Blood Glucose </= 50 mg/dL, Starting on Tue01/02/25 at 0034, If BG </=50 mg/dL, give 50 mL of D50W IV push STAT and notify MD. Ranjana Bland [facility] dextrose 50 % solution 12.5 g dextrose 50 % solution 12.5 g 01-02 00:34: 53 Yes 12.5g 12.5 g, Intravenou s, As needed, low blood sugar, if Blood Glucose 51- 69 mg/dL, Starting on Tue01/02/25 at 0034, For BG 51-69 mg/dL and patient UNCONSCIOU S OR UNABLE TO SWALLOW OR NPO: Give 25 mL of D50W IV push and notify MD. Ranjana Boothe bisacodyl (Dulcolax) suppository 10 mg bisacodyl (Dulcolax) suppository 10 mg 01-02 00:34: 06 Yes 10mg Q24H 10 mg, Rectal, Daily PRN, constipati on, Starting on Tue01/02/25 at 0034 Ranjana Boothe ondansetron (Zofran) injection 4 mg ondansetron (Zofran) injection 4 mg 01-02 00:34: 06 Yes 4mg Q6H 4 mg, Intravenou s, Every 6 hours PRN, nausea, vomiting, Starting on Tue01/02/25 at 0034 Ranjana Bland [facility] labetalol injection 10 mg labetalol injection 10 mg 01-02 00:34: 05 Yes 1317 10mg 10 mg, Intravenou s, Every 15 min PRN, high blood pressure, Starting on Tue01/02/25 at 0034, Administer IV Push over 2 minutes. May give up to 3 consecutiv e doses. If goal BP is not achieved after 3 consecutiv e doses, Notify MD. (Refer to SBP goal documented in Vital Sign/BP Parameters ? order). Recheck Vitals Q15 minutes x 4. Do not administer if HR < 55 BPM., Indication s: Cerebral Hemorrhage Ranjana Guerreroann Epic sodium chloride 0.9 % infusion 250 mL sodium chloride 0.9 % infusion 250 mL 01-02 00:34: 05 Yes 250mL 250 mL, Intravenou s, As needed, For antibiotic flush to clear line, replace bag every 24 hours., Starting on Tue01/02/25 at 0034 Ranjana Bland Epic sodium chloride (NS) 0.9 % flush 10 mL sodium chloride (NS) 0.9 % flush 10 mL 01-02 00:34: 05 Yes 10mL 10 mL, Intravenou s, As needed, line care, Line Flush, Starting on Tue01/02/25 at 0034 Ranjana Bland Epic levETIRAcet am (Keppra) injection 1,000 mg levETIRAcet am (Keppra) injection 1,000 mg 01-01 23:20: 00 Yes 1000mg 1,000 mg, Intravenou s, Once, On Tue01/01/25 at 2320, For 1 dose, Administer over 3 minutes IV push for doses up to 1500 mg. Ranjana Bland Epic iohexol (OMNIPaque) 350 MG/ML injection 100 mL iohexol (OMNIPaque) 350 MG/ML injection 100 mL 01-01 23:10: 47 01-01 23:10 :00 No 100mL 100 mL, Intravenou s, Once in imaging, Starting on Tue01/01/25 at 2310, For 1 dose Ranjana Bland Epic sodium chloride (NS) 0.9 % flush 10 mL sodium chloride (NS) 0.9 % flush 10 mL 01-01 22:19: 03 Yes 10mL [Order 1 Start] Name: Insert peripheral IV Signed Summary: Once, On Tue01/01/25 at 2220, For 1 occurrence [Order 1 End] [Order 2 Start] Name: Saline lock IV Signed Summary: Once, On Tue01/01/25 at 2220, For 1 occurrence [Order 2 End] [Order 3 Start] Name: sodium chloride (NS) 0.9 % flush 10 mL Signed Summary: 10 mL, Intravenou s, As needed, line care, Starting on Tue01/01/25 at 2219 [Order 3 End] [facility] jamey [facility] Vital Signs Vital Name Observation Time Observation Value Comments S esau Systolic blood pressure 2025-01-05 14:00:00 168 mm[Hg] [facility] Diastolic blood pressure 2025-01-05 14:00:00 79 mm[Hg] [facility] Heart rate 2025-01-05 14:00:00 73 [facility] 2025-01-05 14:00:00 18 /min [facility] Oxygen saturation in Arterial blood by Pulse oximetry 2025-01-05 14:00:00 96 /min [facility] Body temperature 2025-01-05 13:05:48 36.78 Freya [facility] Body height 2025-01-02 15:00:00 165.1 cm [facility] Body weight 2025-01-02 15:00:00 58.2 kg [facility] BMI 2025-01-02 15:00:00 21.35 kg/m2 [facility] Systolic blood pressure 2025-01-05 14:00:00 168 mm[Hg] [facility] Diastolic blood pressure 2025-01-05 14:00:00 79 mm[Hg] [facility] Heart rate 2025-01-05 14:00:00 73 /min Memor [facility] Respiratory rate 2025-01-05 14:00:00 18 /min [facility] Oxygen saturation in Arterial blood by Pulse oximetry 2025-01-05 14:00:00 96 /min [facility] Body temperature 2025-01-05 13:05:48 36.78 Freya [facility] Body height 2025-01-02 15:00:00 165.1 cm [facility] Body weight 2025-01-02 15:00:00 58.2 kg [facility] BMI 2025-01-02 15:00:00 21.35 kg/m2 [facility] Procedures Procedure Date / Time Performed Performing Clinician Source Complete Blood Count w/Diff and Platelet 2025-01-08 00:00:00 [facility] Comprehensive Metabolic Panel 2025-01-08 00:00:[address] [facility] [address] brain wo IV contrast 2025-01-07 00:00:00 [facility] POC GLUCOSE UNSOLICITED RESULTS 2025-01-05 16:45:00 Noemi Powell [facility] POC GLUCOSE UNSOLICITED RESULTS 2025-01-05 13:04:00 Noemi Powell [facility] POC GLUCOSE UNSOLICITED RESULTS 2025-01-05 08:48:00 Noemi Powell [facility] AUTOMATED DIFFERENTIAL 2025-01-05 00:10:00 Sherlyn Purdy [facility] COMPREHENSIVE METABOLIC PANEL 2025-01-05 00:10:00 Noemi Powell [facility] COMPLETE BLOOD COUNT W/DIFF AND PLATELET 2025-01-05 00:10:00 Sherlyn Purdy [facility] CALCIUM LEVEL IONIZED WHOLE BLOOD 2025-01-05 00:10:00 Sherlyn Purdy [facility] COMPLETE BLOOD COUNT 2025-01-05 00:10:00 Mike Purdy [facility] POC GLUCOSE UNSOLICITED RESULTS 2025-01-04 21:19:00 Noemi Powell [facility] POC GLUCOSE UNSOLICITED RESULTS 2025-01-04 18:16:00 Noemi Powell [facility] POC GLUCOSE UNSOLICITED RESULTS 2025-01-04 16:19:00 Noemi Powell [facility] CT BRAIN WO IV CONTRAST 2025-01-04 14:55:00 Anabell Burnett [facility] IR ANGIOGRAM CEREBRAL ARTERY BILAT 2025-01-04 12:40:00 Lex Stewart Breezy [facility] POC GLUCOSE UNSOLICITED RESULTS 2025-01-04 08:58:00 Noemi Powell [facility] COMPREHENSIVE METABOLIC PANEL 2025-01-04 04:16:00 Skibber, [facility] MAGNESIUM LEVEL 2025-01-04 04:16:[address] [facility] PHOSPHORUS LEVEL 2025-01-04 04:16:00 Sherlyn Purdy [facility] COMPLETE BLOOD COUNT W/DIFF AND PLATELET 2025-01-04 04:16:00 Skibber [facility] CALCIUM LEVEL IONIZED WHOLE BLOOD 2025-01-04 04:16:00 [facility] 2025-01-04 04:16:00 Skibber [facility] AUTOMATED DIFFERENTIAL 2025-01-04 04:16:00 Zaydabb dakota, [facility] POC GLUCOSE UNSOLICITED RESULTS 2025-01-03 17:12:00 Noemi Powell [facility] POC GLUCOSE UNSOLICITED RESULTS 2025-01-03 16:41:00 Noemi Powell [facility] POC GLUCOSE UNSOLICITED RESULTS 2025-01-03 11:12:00 Noemi Powell [facility] ECG 12-LEAD 2025-01-03 09:30:00 Willy Feldman [facility] POC GLUCOSE UNSOLICITED RESULTS 2025-01-03 07:21:00 Noemi Powell [facility] BASIC METABOLIC PANEL 2025-01-03 01:57:00 Nghia Christine [facility] COMPLETE BLOOD COUNT W/DIFF AND PLATELET 2025-01-03 01:57:00 Sherlyn Purdy [facility] CALCIUM LEVEL IONIZED WHOLE BLOOD 2025-01-03 01:57:00 [facility] 2025-01-03 01:57:00 Mkie Purdy [facility] AUTOMATED DIFFERENTIAL 2025-01-03 01:57:00 Rajwinder [facility] TROPONIN I HIGH SENSITIVITY CARESET (1ST HR) 2025-01-02 16:27:00 Rajwinder [facility] COMPREHENSIVE METABOLIC PANEL 2025-01-02 15:22:00 Rajwinder [facility] CALCIUM LEVEL IONIZED SERUM 2025-01-02 15:22:00 Rykavitha richmond [facility] CREATINE KINASE (CK TOTAL) 2025-01-02 15:22:00 Niranjan macdonald Sherlyn [facility] LACTIC ACID LEVEL 2025-01-02 15:22:00 Rajwinder Sherlyn [facility] MAGNESIUM LEVEL 2025-01-02 15:22:00 [facility] PHOSPHORUS LEV[facility] 2025-01-02 15:22:00 Rajwinder Sherlyn [facility] COMPLETE BLOOD COUNT W/DIFF AND PLATELET 2025-01-02 15:22:00 Rajwinder Sherlyn [facility] TROPONIN I HIGH SENSITIVITY CARESET 2025-01-02 15:22:00 Rajwinder [facility] TROPONIN I HIGH SENSITIVITY CARESET (BASELINE) 2025-01-02 15:22:00 Rajwinder Sherlyn [facility] PT AND PTT 2025-01-02 15:22:00 Kavon Rice [facility] COMPLETE BLOOD COUNT 2025-01-02 15:22:00 Mike Purdy [facility] AUTOMATED DIFFERENTIAL 2025-01-02 15:22:00 Rajwinder Sherlyn [facility] ECG 12-LEAD 2025-01-02 15:10:00 Noemi Powell [facility] CT BRAIN WO IV CONTRAST 2025-01-02 09:01:37 Calista Guadarrama [facility] POC GLUCOSE UNSOLICITED RESULTS 2025-01-02 07:10:00 Noemi Powell [facility] BASIC METABOLIC PANEL 2025-01-02 06:46:00 Dimas Guadarrama [facility] COMPLETE BLOOD COUNT W/DIFF AND PLATELET 2025-01-02 06:46:00 ZaydabbDave duncan [facility] THROMBOELASTOGRAPH RAPID 2025-01-02 06:46:00 Nain Guadarrama [facility] PT AND PTT 2025-01-02 06:46:00 Nick Guadarrama [facility] COMPLETE BLOOD COUNT 2025-01-02 06:46:00 Dave Phillips [facility] AUTOMATED DIFFERENTIAL 2025-01-02 06:46:00 Dave Muro [facility] POC ARTERIAL BLOOD GAS AND BASIC PANEL UNSOLICITED RESULTS 2025-01-02 05:10:00 Noemi Powell [facility] CREATION, CRANIAL ELIZABETH HOLE 2025-01-02 04:00:00 Raquel ms, Noemi Cooper [facility] TRANSTHORACIC ECHO (TTE) COMPLETE W/ CONTRAST 2025-01-02 03:11:00 Dave Phillips [facility] COMPREHENSIVE METABOLIC PANEL 2025-01-02 01:32:00 Dave Phillips [facility] TROPONIN I HIGH SENSITIVITY CARESET (1ST HR) 2025-01-02 01:32:00 GoMiguel connelly [facility] ASPIRIN EFFECT PLATELET 2025-01-02 01:32:00 Skib manan, Dave [facility] PT AND PTT 2025-01-02 01:32:00 ZaydabbDave duncan [facility] TYPE AND SCREEN 2025-01-02 00:29:00 Kavon Rice [facility] TROPONIN I HIGH SENSITIVITY CARESET 2025-01-02 00:29:00 GoayMiguel [facility] TROPONIN I HIGH SENSITIVITY CARESET (BASELINE) 2025-01-02 00:29:00 GoMiguel connelly [facility] Wound ostomy eval and treat 2025-01-02 00:00:00 [facility] ECG 12-LEAD 2025-01-01 23:40:00 GoMiguel connelly [facility] CT BRAIN WO IV CONTRAST 2025-01-01 23:12:00 GoDarion connelly [facility] CT CERVICAL SPINE WO IV CONTRAST 2025-01-01 23:12:00 Miguel Herrera [facility] CT CHEST ABDOMEN PELVIS W IV CONTRAST 2025-01-01 23:12:00 Miguel Herrera [facility] XR SHOULDER 2+ VIEWS LEFT 2025-01-01 22:43:00 Mike Herrera [facility] BASIC METABOLIC PANEL 2025-01-01 22:21:00 Amarjit Rice [facility] HEPATIC FUNCTION PANEL 2025-01-01 22:21:00 Lisa Herrera [facility] ETHANOL LEVEL 2025-01-01 22:21:00 Dwayne, Kavon el [facility] CREATINE KINASE (CK TOTAL) 2025-01-01 22:21:00 W Amarjit cedeno [facility] BLOOD GAS, VENOUS 2025-01-01 22:21:00 Patrick Rice [facility] COMPLETE BLOOD COUNT W/DIFF AND PLATELET 2025-01-01 22:21:00 [facility]APID 2025-01-01 22:21:00 Amarjit Jones [facility] LACTIC ACID WITH 2 HOUR REFLEX 2025-01-01 22:21:00 Amarjit Rice [facility] COMPLETE BLOOD COUNT 2025-01-01 22:21:00 [facility] 2025-01-01 22:21:00 Amarjit Vanessa [facility] UA with microscopic no culture 2025-01-01 00:00:00 [facility] Drug Screen Urine (8 Drugs) 2025-01-01 00:00:00 [facility] Calcium Level Ionized Whole Blood [facility] Magnesium Level [facility] Phosphorus Level [facility] Plan of Care Planned Activity Planned Date Details Comments Source Procedure 2025-01-31 00:00:00 POCT Glucose [facility] orial [facility] Encounters Start Date/Time End Date/Time Encounter Type Admission Type Attending [facility] Care Facility Care Department Encounter ID Source 2025-02-21 09:40:00 2025-02-21 09:40:[address] [facility] [id number] [facility] 2025-01-17 09:40:00 2025-01-17 10:12:[address] [facility] [id number] [facility] 2025-01-16 12:04:11 2025-01-16 16:03:31 Outpatient Elective MHEOUT M[facility]OUT [id number] [facility] 2025-01-07 00:00:00 2025-01-07 16:59:33 Orders Only Clyde Bautista [facility] [id number] Memoria l [facility] 2025-01-01 22:06:00 2025-01-05 17:57:00 Hospital Encounter Willie Hernandez LebronNoemi [facility] [id number] Ranjana concepcion [facility] 2025-01-01 22:06:00 2025-01-05 17:57:00 Inpatient Trauma Center NOEMI POWELL [facility] General Medicine [id number] [facility] 2020-05-21 00:00:00 2020-05-21 00:00:00 Outpatient R [facility]IGH [facility] NUT [id number] [facility] 2020-05-19 12:15:00 2020-05-19 12:15:00 Outpatient [facility] [id number] [facility] Results Test Description Test Time Test Comments Results Result Co mments Source [facility]2025-07-26 14:11:48* Test Item Value Reference Range Interpretation Comme nts POC Glu (test code = 89136-0) 215 mg/dL 70-99 H POC Glu Comment 1 (test code = 8369695820) Notified RN/MD POC Performing Location (andrea t code = 3822891316) [facility]3 [facility] Lab Interpretation (test cod e = 01693-5) Abnormal [facility]2025-07-26 09:14:37* Test Item Value Reference Range Interpretation Comme nts POC Glu (test code = 05663-1) 187 mg/dL 70-99 H POC Glu Comment 1 (test code = 3076599330) Notified RN/MD POC Performing Location (andrea t code = 1714340293) [facility] Lab Interpretation (test cod e = 87741-7) Abnormal [facility] [id number] 21:30:09* Test Item Value Reference Range Interpretation Comme nts POC Glu (test code = 88075-1) 168 mg/dL 70-99 H POC Glu Comment 1 (test code = 3912485634) Notified RN/MD POC Performing Location (andrea t code = 7148859013) [facility] Lab Interpretation (test cod e = 68000-7) Abnormal [facility] [id number] 18:20:49* Test Item Value Reference Range Interpretation Comme nts POC Glu (test code = 35973-9) 164 mg/dL 70-99 H POC Glu Comment 1 (test code = 8295063920) Notified RN/MD POC Performing Location (andrea t code = 1750695161) [facility] (test cod e = 22651-8) Abnormal [facility] [id number] 16:22:19* Test Item Value Reference Range Interpretation Comme nts POC Glu (test code = 83650-8) 129 mg/dL 70-99 H POC Performing Location (andrea t code = 2062966119) SP OP-PACU Lab Interpretation (test cod e = 49977-6) Abnormal [facility] 12 [id number] 15:14:18* Test Item Value Reference Range Interpretation Comme nts Ventricular Rate (test code = 6763395839) BPM Atrial Rate (test code = 5559539512) BPM HI Interval (test code = 8909658826) 146 ms QRS Duration (test code = 5508622476) 132 ms QT/QTc (test code = 3890712588) 468 ms QTc Calculation (test code = 7167774530) 526 ms P-[place] (test code = 6874784278) degrees R-[place] (test code = 8240638332) degrees T-[place] (test code = 9220559005) degrees IMP (test code = IMP) PXN (test code = PXN) [facility] [id number] 09:09:05* Test Item Value Reference Range Interpretation Comme nts POC Glu (test code = 77768-8) 136 mg/dL 70-99 H POC Performing Location (andrea t code = 9277728516) [facility] Interpretation (test cod e = 48176-6) Abnormal [facility] [id number] 18:40:17* Test Item Value Reference Range Interpretation Comme nts POC Glu (test code = 59418-1) 93 mg/dL 70-99 POC Performing Location (andrea t code = 1886437803) J3 [facility] Lqxzqyj2098-94-94 16:46:22* Test Item Value Reference Range Interpretation Comme nts POC Glu (test code = 31281-5) 57 mg/dL 70-99 L POC Glu Comment 1 (test code = 5245061049) Notified RN/MD POC Performing Location (andrea t code = 6540165990) [facility]3 [facility] Lab Interpretation (test cod e = 90958-7) Abnormal [facility] [id number] 11:15:47* Test Item Value Reference Range Interpretation Comme nts POC Glu (test code = 10065-8) 227 mg/dL 70-99 H POC Glu Comment 1 (test code = 5437156187) Notified RN/MD POC Performing Location (andrea t code = 6642130711) J3 [facility] Lab Interpretation (test cod e = 64831-5) Abnormal [facility] 12 [id number] 10:20:48* Test Item Value Reference Range Interpretation Comme nts Ventricular Rate (test code = 7212445805) BPM Atrial Rate (test code = 5659912193) BPM HI Interval (test code = 2549356053) 156 ms QRS Duration (test code = 0776062018) 126 ms QT/QTc (test code = 6869166851) 472 ms QTc Calculation (test code = 6371882334) 463 ms P-[place] (test code = 6251134560) degrees R-[place] (test code = 7144379503) degrees T-[place] (test code = 0148596574) degrees IMP (test code = IMP) PXN (test code = PXN) [facility] Qjtponu5623-57-24 07:40:49* Test Item Value Reference Range Interpretation Comme nts POC Glu (test code = 84886-4) 118 mg/dL 70-99 H POC Glu Comment 1 (test code = 9348603723) Notified RN/MD POC Performing Location (andrea t code = 0384360640) J7 [facility] Lab Interpretation (test cod e = 46806-2) [facility] dyfycwyz3667-03-53 10:13:16* Test Item Value Reference Range Interpretation Comme nts RVOT Vmean (test code = 6273606535) 0.31 m/s LVOT Vmax/AV Vmax (test code = 5050865074) 0.81 {ratio} Ao Root diam diastole (test code = 7506931247) 21 mm LVOT Vmean (test code = 7932797151) 0.86 m/s LV SV (A4C) (test code = 3486599316) 79.10 ml LV SI (A2C) (test code = 9190829451) 64.80 ml LV SV (BP) (test code = 8038555351) 78.90 ml LVLs (A4C) (test code = 7304050609) 54.30 mm LVLs (A2C) (test code = 8339810780) 55.90 mm LVLd (A4C) (test code = 8162912866) 69.30 mm LVLd (A2C) (test code = 9329495085) 80.60 mm PV mn all (test code = 0582272023) 0.77 m/s LV ESV A2C (test code = 1543675595) 18.00 mL LV EDV A4C (test code = 4330218532) 111.00 mL LA area A4C (test code = 4670011956) 17.10 cm2 LA area A2C (test code = 0799022828) 21.90 cm2 LV ESV A4C (test code = 2269380458) 31.90 mL LV EDV A2C (test code = 2547948884) 82.80 mL TR pk grad (test code = 6556503874) mmHg TAPSE (test code = 2860264775) 20 mm LA ESV A2C (test code = 1107720537) 69.313906514655210 mL LA ESV A4C (test code = 1677566988) 69.774362672560360 mL LV est EF (test code = 8807-0) 69 % LV EDV BP (test code = 9337222572) 103.00 mL LV ESV BP (test code = 7478606573) 24.10 mL MV A pk all (test code = 7469960164) 1.01 m/s MV PHT (test code = 4586625007) 87 ms MV E pk all (test code = 7683779482) 1.01 m/s PV mn grad (test code = 4261529617) mmHg AV pk grad (test code = 2004434136) mmHg LV stroke vol (test code = 0632666126) 99.52 ml RVOT VTI (test code = 6080468075) 10.5 cm RVOT pk all (test code = 2684983490) 0.41 m/s AV VTI (test code = 0562145056) 41.4 cm AV pk all (test code = 45224-7) 1.72 m/s LVOT VTI (test code = 6959570828) 35.1 cm LVOT pk all (test code = 4623743481) 1.39 m/s LVOT area (test code = 1858545706) 2.84 cm2 LVOT diam (test code = 9257081239) 19 mm MV DT (test code = 6264553317) 297 ms MV e' lateral all (test code = 5553049694) 9.68 cm/s MV E/A ratio (test code = 4534598153) PV pk grad (test code = 7195279840) mmHg MV area PHT (test code = 1683427434) 2.53 cm2 LVOT pk grad (test code = 8000873464) mmHg AV mn grad (test code = 81617-8) mmHg RVOT mn grad (test code = 7108328208) mmHg RVOT pk grad (test code = 2739820793) mmHg MV E/e' septal (test code = 5995406835) TR pk all (test code = 5851741732) 2.52 m/s AV area pk all (test code = 1692942419) 2.29 cm2 AV area cont VTI (test code = 2264270174) 2.40 cm2 LVOT mn grad (test code = 5650402161) mmHg LV A4C EF (test code = 549061-8) 71 % LV A2C EF (test code = 410763-8) 78 % AV mn all (test code = 7660509869) 1.15 m/s LVPWd (test code = 5896414544) 12 mm LA size (test code = 5876734063) 28 mm Ascending aorta (test code = 4480269573) [address] junction (test code = 6789109994) 19 mm LA vol BP (test code = 6786890592) 57.00 ml LV biplane EF (test code = 90176-5) 76.6 % Fractional Shortening 2D (test code = 8364630904) 39 % LVIDs (test code = 7583006696) 29 mm IVSd (test code = 5054045401) 12 mm LVIDd (test code = 4045685872) 48 mm PV pk all (test code = 0230982835) 1.08 m/s PV VTI (test code = 7827679) 26.9 cm MV E/e' lateral (test code = 9124371) MV e' septal all (test code = 7148230) 6.64 cm/s LV ESV 2D (test code = 7571701) 33.03 mL LV EDV 2D (test code = 4122533) 107.52 mL IVSd 2D (test code = 5325132) 12.669554340998640 cm LV RWT 2D (test code = 1398107721) LV mass 2D (test code = 0163315785) 223.03 g MV avg E/e' (test code = 2399127474) AV all ratio (test code = 8008600656) LV mass size 1 (test code = 2202177298) 223.0 cm RVSP (test code = 1688794) mmHg Est RA pressure (test code = 1166118624) mmHg sPAP (test code = 5069418199) mmHg RAP (test code = 2523736043) mmHg Radiology Study observation (narrative) (test code = 07703-3) GERARD (test code = GERARD) [facility] 12 lead (arrhythmia)2025-01-02 09:25:42* Test Item Value Reference Range Interpretation Comme nts Ventricular Rate (test code = 0451425553) BPM Atrial Rate (test code = 1818119971) BPM HI Interval (test code = 7446355083) 150 ms QRS Duration (test code = 6558291375) 128 ms QT/QTc (test code = 9029316487) 424 ms QTc Calculation (test code = 0369604032) 483 ms P-[place] (test code = 8047643953) degrees R-[place] (test code = 7180377124) degrees T-[place] (test code = 2626389001) degrees IMP (test code = IMP) PXN (test code = PXN) [facility] Pspmwlx4924-19-89 07:12:08* Test Item Value Reference Range Interpretation Comme nts POC Glu (test code = 72670-0) 130 mg/dL 70-99 H POC Performing Location (andrea t code = 1028963848) SP OP-PACU Lab Interpretation (test cod e = 43357-3) Abnormal [facility] Arterial Blood Gas and Basic [id number] 05:11:54* Test Item Value Reference Range Interpretation Comme nts POC A Temp (test code = 5549392548) DegC POC A Source (test code = 2405059389) ART POC A pH (test code = 2744-1) 7.35-7.45 POC A PCO2 (test code = 2019-8) See_Comment [Automated messa ge] The system which generated this result transmitted reference range: 35 - 45 mmHg. The reference range was not used to interpret this result as normal/abnormal. POC A PO2 (test code = 2703-7) See_Comment [Automated messa ge] The system which generated this result transmitted reference range: 80 - 100 mmHg. The reference range was not used to interpret this result as normal/abnormal. POC A HCO3 (test code = 1960-4) See_Comment H [Automated messa ge] The system which generated this result transmitted reference range: 22 - 26 mMol/L. The reference range was not used to interpret this result as normal/abnormal. POC A BE (test code = 1925-7) See_Comment [Automated messa ge] The system which generated this result transmitted reference range: -2 - 2 mMol/L. The reference range was not used to interpret this result as normal/abnormal. POC A O2 Sat (calc) (test code = 2708-6) 99.3 % 95-100 POC A Hgb Tot (test code = 30658-7) 11.9 g/dL 11.2-15.7 POC A Hct (calc) (test code = 39568-0) 36.0 % 34.1-44.9 POC A Na (test code = 55768-0) See_Comment [Automated messa ge] The system which generated this result transmitted reference range: 135 - 145 mEq/L. The reference range was not used to interpret this result as normal/abnormal. POC A K (test code = 5969638) See_Comment LL [Automated messa ge] The system which generated this result transmitted reference range: 3.5 - 5.1 mEq/L. The reference range was not used to interpret this result as normal/abnormal. POC Chloride (test code = 2919037) See_Comment [Automated Sparks] The system which generated this result transmitted reference range: 95 - 109 mEq/L. The reference range was not used to interpret this result as normal/abnormal. POC A Glu (test code = 2339-0) 98 mg/dL 70-99 POC A LA (test code = 224) See_Comment [Automated Sparks] The system which generated this result transmitted reference range: 0.5 - 2.2 mMol/L. The reference range was not used to interpret this result as normal/abnormal. POC A Ca Ion (test code = 01283-0) See_Comment [Automated Sparks] The system which generated this result transmitted reference range: 1.05 - 1.25 mMol/L. The reference range was not used to interpret this result as normal/abnormal. POC A Ca Ion (7.4) (test code = 5650286950) 1.21 mmol/L 1.05-1.25 POC Performing Location (test code = 8553722306) [facility] Lab Interpretation (test code = 79135-3) Abnormal [facility] Consult Notes Date/Time Note Provider Source 2025-01-03 11:51:09 Reason For Consult Pressure injury on sacrum stage 3 History Of Present Illness From chart: Sarthak Shane is a 79 y.o. female with past medical history of HTN, recent infection who presents on 01/01/2025 for AMS over 3 days, signs of recent trauma. CTH shows L acute on chronic SDH measuring up to [address] C Spine without acute abnormality. CT CAP pending. Family reports that patient was confused over phone today. Neighbors report patient has been confused for at least 3 days. Family did find patient with swelling of left eye concerning for recent trauma. Patient is confused during exam but does describe headaches for unspecified period of time. Prior to this patient was independent and lives alone. Patients endorses headache. Patient denies nausea, vomiting, dizziness, or new weakness. Blood thinner use includes none. NSGY consulted for manangement of SDH - following. Wound care teams consulted for sacral pressure ulcer. Patient is seen and assessed in hospital room, family present. Reports wound has been present for a few days. Past Medical History She has a past medical history of Diabetes mellitus (HCC) and Hypertension. Surgical History She has no past surgical history on file. Social History She reports that she does not drink alcohol. No history on file for tobacco use and drug use. Allergies Patient has no known allergies. Medications No medications prior to admission. Review of Systems Review of Systems Constitutional: Negative for chills and fever. HENT: Negative for congestion and sore throat. Eyes: Negative for visual disturbance. Cardiovascular: Negative for chest pain and palpitations. Respiratory: Negative for cough and shortness of breath. Endocrine: Negative for cold intolerance and heat intolerance. Skin: Positive for poor wound healing. Negative for dry skin. Gastrointestinal: Negative for abdominal pain, nausea and vomiting. Neurological: Negative for headaches and weakness. Psychiatric/Behavioral: Negative for memory loss. The patient is not nervous/anxious. Physical Exam Physical Exam: Constitutional: Appearance: Normal appearance. HENT: Head: Normocephalic. Comments: Drain present Mouth/Throat: Mouth: Mucous membranes are moist. Pharynx: Oropharynx is clear. Eyes: Pupils: Pupils are equal, round, and reactive to light. Pulmonary: Effort: Pulmonary effort is normal. Abdominal: General: Abdomen is flat. Palpations: Abdomen is soft. Musculoskeletal: Right lower leg: No edema. Left lower leg: No edema. Skin: General: Skin is warm and dry. Comments: Left buttock unstageable pressure injury - Measures approx. L 2.2cm X W 1.0cm X D (unable to determine). Wound bed with 100% devitalized tissue, no exudate, amanda wound with dry flaky skin. No overt signs of infection. Neurological: Mental Status: She is alert and oriented to person, place, and time. Psychiatric: Behavior: Behavior normal. Last Recorded Vitals Blood pressure 132/67, pulse 65, temperature 36.9 ?C (98.4 ?F), resp. rate 12, height 1.651 m (5' 5"), weight 58.2 kg (128 lb 4.9 oz), SpO2 96%. Body mass index is 21.35 kg/m?. Relevant Results Pertinent Labs : Lab Results Component Value Date WBC 6.17 01/03/2025 Hgb 10.4 (L) 01/03/2025 POC A Hct (calc) 36.0 01/02/2025 Hct 32.6 (L) 01/03/2025 Plt Count 148 (L) 01/03/2025 Lab Results Component Value Date POC A Na 141 01/02/2025 Sodium Lvl 146 (H) 01/03/2025 POC A K 2.9 (LL) 01/02/2025 Potassium Lvl 3.3 (L) 01/03/2025 POC Chloride 109 01/02/2025 Chloride Lvl 111 (H) 01/03/2025 CO2 Lvl 23.0 01/03/2025 BUN 15 01/03/2025 Creatinine Lvl 0.77 01/03/2025 POC A Glu 98 01/02/2025 Glucose Lvl 180 (H) 01/03/2025 POC Glu 227 (H) 01/03/2025 Lab Results Component Value Date Calcium Lvl 8.1 (L) 01/03/2025 Magnesium 1.63 01/02/2025 Phosphorus Lvl 3.8 01/02/2025 Lab Results Component Value Date AST 24 01/02/2025 ALT 15 01/02/2025 Alkaline Phosphatase 76 01/02/2025 Lab Results Component Value Date PTT 27.9 01/02/2025 Prothrombin Time (PT) 15.9 (H) 01/02/2025 INR 1.25 (H) 01/02/2025 Lab Results Component Value Date HS Troponin I 1 Hour 8 01/02/2025 HS Troponin I 0 to 1 Hour Delta 0 01/02/2025 HS Troponin I Baseline 8 01/02/2025 Images reviewed. Assessment & Plan SDH (subdural hematoma) (HCC) Neuro following and managing. Moderate malnutrition (CMS/HCC) (HCC) Optimize nutrition to assist with wound healing. Continue nutritional recommendations per RD. Pressure ulcer of left buttock, unstageable (HCC) 100% devitalized tissue, no overt signs of infection. Start triad paste to assist with autolytic debridement and moist wound healing. Patient encouraged to turn and reposition self every two hours and as needed. Patient is able to turn and reposition self. She is on an air-loss mattress. Thank you for your consult. We will continue to follow this patient with you. Gerontology Nurse Practitioner Colleen Blnad 2025-01-03 07:40:16 Associated Order(s): IP SCREENING REFERRAL TO NUTRITION SERVICES NUTRITION ASSESSMENT - ADULT Unit: NSICU Reason for RD Encounter: Screening Reason : Pressure injury Findings Nutrition Diagnosis: Nutrition Diagnosis: Increased nutrient needs related to wounds and diagnosis as evidenced by delayed wound healing and pressure injuries. Nutrition Diagnosis: See malnutrition diagnosis below *Malnutrition Diagnosis: Moderate malnutrition Related To: Chronic illness As Evidenced By: Moderate muscle loss, Mild muscle loss, Mild fat loss Interventions and Recommendation: PO diet per ASSISTANT CREDIT MANAGER recs. Add Juan BID to assist with wound healing. Ensure electrolytes being monitored/replaced per MPP. MD to adjust medications for further glycemic control, as warranted. NUTRITION RISK: Moderate, in 5-7 days Next Date for Nutrition Services Follow Up: 01/10/25 Communication : RN Rounded with multidisciplinary team Current Nutrition: Dietary Orders (From admission, onward) Start Ordered 01/02/25 1517 Adult Diet Regular Diet effective now Question: Diet type Answer: Regular 01/02/25 1516 Orderered Tube Feeds and Supplements Medication Dose Route Frequency Provider Last Rate Last Admin None PO/EN/PN Intakes: No data found. Nutrition Visit Information: 01/03- pt extubated early yesterday am. Passed RN bedside swallow and ASSISTANT CREDIT MANAGER consulted as well- clearing for regular/thin liquid diet. Nursing documents SIII pressure injury to sacrum. WC has been referred who just finished visit shortly prior to RD bedside visit confirming SIII status. Spoke with pt- reports her appetite being fine and typically averages ~1 meal/day. Confirmed this is her usual and nothing has changed/declined of recent or past few months. She does report some wt loss of ~6 lbs since her last doc visit (which was unable to confirm). Reports UBW ~130 lbs which with bed reading confirms minimal to non concerning changes in her BW. Though pt does present with mild-moderate wasting through extremities. Discussed pt's wound status and benefits from increasing protein intakes for wound healing. Discussed Juan oral supplement- pt was accepting. Denies any n/v/d/c. Anthropometrics: Height: 165.1 cm (5' 5") Height Method: Stated Weight: 58.2 kg, 128 lbs Weight Method: Bed scale Body mass index is 21.35 kg/m?. [place] body weight: 57 kg (125 lb 10.6 oz) Adjusted ideal body weight: 57.5 kg (126 lb 11.5 oz) Wt Readings from Last 10 Encounters: 01/02/25 58.2 kg (128 lb 4.9 oz) -no other wt hx to further assess possible changes prior Estimated Nutrition Needs: Calculated Energy Needs Using Equations Height: 1.651 m (5' 5") Weight Used for Equation Calculations: 58.2 kg (128 lb 4.9 oz) Energy Equation Used: Rule of thumb (kcal/kg) Energy Lower Range: 25 (kcal/kg) Energy Upper Range: 30 (kcal/day) Energy Needs Lower Range: 1455 kcal/day (kcal/day) Energy Needs Upper Range: 1746 kcal/day Temp: (!) 35.1 ?C (95.2 ?F) Estimated Protein Needs (g/kg) Protein Lower Range: 1.5 (g/kg) Protein Upper Range: 2.0 (g/day) Protein Lower Range: 87 g/day (g/day) Protein Upper Range: 116 g/day Fluid Needs Fluid Needs Method: Or per MD (mL/kg) Fluid Needs: 25 (mL/day) Fluid Needs (Calculated): 1455 mL/day Nutrition Physical Findings per barrel liner: Orientation Level: Oriented X4 O2 Delivery Method: Nasal cannula Gastrointestinal (WDL): WDL Abdomen Inspection: Soft Abdominal Tenderness: Soft; Nontender Bowel Sounds: All quadrants Bowel Sounds (All Quadrants): Active LUE: Full movement RUE: Full movement LLE: Limited movement RLE: Limited movement Wound 01/02/25 Surgical Left Scalp (Active) Wound 01/02/25 Pressure Injury Sacrum (Active) Pressure Injury Stage 3 01/03/25 0800 Nutrition Focused Physical Exam - Muscles and Fat: Assessment of Muscle Status Date Assessed: 01/03/25 Muscle Status: Deficits present [place] Region: Zgvw-ey-clcikimr deficit: Slight depression Clavicle Bone Region: Nptf-su-upmfirat deficit: More prominent clavicle bone, less prominent muscle when palpated Clavicle Acromion Bone Region: Iadi-zd-aawlwyed deficit: Acromion process may slightly protrude Anterior Thigh Region: Odbu-cl-xbkfgjbk deficit: Mild depression on inner thigh Patellar Region: Suos-hg-ggyjzowp deficit: Knee cap more prominent Calves-Posterior Region: Ehmz-vl-kzttfztb deficit: Not well-developed Assessment of Fat Status Date Assessed: 01/03/25 Orbital Region: Igwn-mw-yaoiubyf deficit: Somewhat hollow look, slightly dark circles Upper Arm Region: Padj-wl-hljlyheb deficit: Some depth pinch, not ample Basic Information: Admitting diagnosis: SDH (subdural hematoma) (HCC) [S06.5XAA] Clinical course: 79 y.o. female with PMH of HTN, who presented on 01/01/2025 from OSH following AMS over 3 days with signs of recent trauma. Per history, patient was found on the ground by her son altered with L eye swelling and complaining of L shoulder pain. Initial CTH showed L acute on chronic SDH measuring up to [address] C Spine unremarkable. NSGY consulted for surgical evaluation. Admitted to NSICU for neuro monitoring and management. Interval Events: 01/02: s/p L SDH evacuation Medications: acetaminophen, 1,000 mg, Oral, Once gabapentin, 800 mg, Oral, q8h heparin, 5,000 Units, Subcutaneous, q8h HYDROmorphone, 0.2 mg, Intravenous, Once HYDROmorphone, 4 mg, Oral, q8h levETIRAcetam, 500 mg, Intravenous, q12h MILENA methocarbamol, 750 mg, Oral, q12h polyethylene glycol (PEG) 3350, 17 g, Oral, q12h potassium chloride, 10 mEq, Intravenous, Once sennosides, 1 tablet, Oral, BID sodium chloride, 10 mL, Intravenous, q12h PRN medications: acetaminophen, bisacodyl, calcium gluconate, dextrose, dextrose, glucagon, insulin lispro, labetalol, magnesium sulfate, methocarbamol, ondansetron, potassium chloride OR potassium chloride OR potassium chloride OR Potassium chloride, [COMPLETED] Insert peripheral IV AND [COMPLETED] Saline lock IV AND sodium chloride, sodium chloride, sodium chloride Labs: Pertinent Labs : Lab Results Component Value Date POC A Na 141 01/02/2025 Sodium Lvl 146 (H) 01/03/2025 POC A K 2.9 (LL) 01/02/2025 Potassium Lvl 3.3 (L) 01/03/2025 POC Chloride 109 01/02/2025 Chloride Lvl 111 (H) 01/03/2025 CO2 Lvl 23.0 01/03/2025 BUN 15 01/03/2025 Creatinine Lvl 0.77 01/03/2025 POC A Glu 98 01/02/2025 Glucose Lvl 180 (H) 01/03/2025 POC Glu 118 (H) 01/03/2025 Lab Results Component Value Date Calcium Lvl 8.1 (L) 01/03/2025 Magnesium 1.63 01/02/2025 Phosphorus Lvl 3.8 01/02/2025 No results found for: "HGBA1C" Review / Management: I/O 24 HRS: Intake/Output Summary (Last 24 hours) at 01/03/2025 1051 Last data filed at 01/03/2025 1000 Gross per 24 hour Intake 207.92 ml Output 830 ml Net -622.08 ml Monitoring and Evaluation: MONITORING AND EVALUATION: Weight changes, Muscle wasting, Fat wasting, Skin, Digestive/abdominal assessment, Nutrition Intake : PO intake and tolerance, and Labs: BMP, Phos and Mg GOAL: >75% of estimated needs met: Registered Dietitian Maya Vidales MS, RD, LD, CNSC Mon-Tue Pager: [phone] Weekend/On-Call Pager: [phone] [facility] 2025-01-02 10:26:10 Neurocritical Care Consultation Note Consulted by NSGY for medical mgmt History Of Present Illness Sarthak Shane, 79 y.o. female with PMH of HTN, who presented on 01/01/2025 from OSH following AMS over 3 days with signs of recent trauma. Per history, patient was found on the ground by her son altered with L eye swelling and complaining of L shoulder pain. Initial CTH showed L acute on chronic SDH measuring up to [address] C Spine unremarkable. NSGY consulted for surgical evaluation. Admitted to NSICU for neuro monitoring and management. Interval Events: 01/02: s/p L SDH evacuation Past Medical History has a past medical history of Diabetes mellitus (HCC) and Hypertension. Surgical History has no past surgical history on file. Family History No family history on file. Social History Allergies Patient has no allergy information on record. Home Medications No medications prior to admission. Review of Systems Unable to evaluate given clinical examination Physical Exam Further clinical exam documented under Impression and Plan by systems. ========= ASSESSMENT AND PLAN Sarthak Shane, 79 y.o. female with PMH of HTN, who presented on 01/01/2025 from OSH following AMS over 3 days with signs of recent trauma. NEUROLOGIC S/p unwitnessed fall Left subacute SDH Brain compression Acute encephalopathy due to TBI Neuro Exam: Awake and alert Oriented to self, place, year and month (forgot the date) Eyes open Pupils reactive, face symmetric Full strength 5/5 no drift Intact LT B 01/01: Initial CTH showed L acute on chronic SDH measuring up to 2 cm with MLS. 01/01: CT C Spine unremarkable CT CAP neg for traumatic injury S/p L craniotomy for L SDH evacuation 01/02/25 SDD 01/02 output: pending Post op CTH with expected changes Keppra 1g load, then 500mg q12h for 7 day for sz ppx Restart home gabapentin 800 q8 Restart home hydromorphone 4mg q8 Restart home robaxin 750 q12 Endovascular team consulted for left MMA E consideration PT/OT/ASSISTANT CREDIT MANAGER as indicated ========= CARDIOVASCULAR Essential hypertension on admission CV Exam: RRR Temp: [36.1 ?C (97 ?F)-37 ?C (98.6 ?F)] 36.1 ?C (97 ?F) Heart Rate: [48-99] 72 Resp: [11-35] 23 BP: (110-190)/(55-94) 119/58 Arterial Line BP 1: (116-159)/(42-69) 125/48 SBP 100-150 PRN hydralazine, labetalol Stop cardene, on 2.5 Syncope work-up Trop 7-> 7 EKG NSR R BBB EKG repeat after OR pending TTE: EF 60-65%, no pericardial effusion, no thrombus, no wall motion abnl ========= PULMONARY Pulm Exam: CTAB on room air w/ spO2>94% CXR clear ========= GASTROINTESTINAL GI Exam: soft, non-distended, present bowel sounds Nutrition: Current Order: Adult Diet Regular GI route: PO bowel regimen: miralax, senna last BM COOK COLD MEAT Lab Results Component Value Date ALT 15 01/02/2025 AST 25 01/02/2025 Alkaline Phosphatase 74 01/02/2025 Bilirubin Total 1.20 (H) 01/02/2025 ========= RENAL Hypokalemia Intake/Output Summary (Last 24 hours) at 01/02/2025 1557 Last data filed at 01/02/2025 1332 Gross per 24 hour Intake 1000 ml Output 1130 ml Net -130 ml Urine Output: 0mL in 24hrs mL/kg/hr (last 24hrs) Results from last 7 days Lab Units 01/02/25 0646 01/02/25 0510 01/02/25 0132 01/01/25 2221 POC SODIUM, ARTERIAL mEq/L -- 141 -- -- SODIUM mEq/L 146* -- 147* 144 POC POTASSIUM, ARTERIAL mEq/L -- 2.9* -- -- POTASSIUM mEq/L 3.3* -- 3.0* 3.1* POC CHLORIDE mEq/L -- 109 -- -- CHLORIDE mEq/L 108* -- 112* 111* CO2 mEq/L 23.1 -- 24.6 22.9 BUN mg/dL 12 -- 12 11 CREATININE mg/dL 0.67 -- 0.70 0.77 CALCIUM mg/dL 9.0 -- 9.2 9.7 POC IONIZED CALCIUM, ARTERIAL mMol/L -- 1.20 -- -- POC IONIZED CALCIUM, ARTERIAL (7.4) mmol/L -- 1.21 -- -- ICU electrolyte replacement protocol Stop IVF no robert ========= INFECTIOUS DISEASE Temp (24hrs), Av.5 ?C (97.7 ?F), Min:36.1 ?C (97 ?F), Max:37 ?C (98.6 ?F) Results from last 7 days Lab Units 01/02/25 0646 01/01/25 2221 WBC 10*3/uL 7.66 5.77 Monitor trend fever curve and WBC Cefazolin post op ========= HEMATOLOGIC Results from last 7 days Lab Units 01/02/25 0646 01/02/25 0132 01/01/25 2221 HEMOGLOBIN g/dL 11.9 -- 13.0 PLATELETS 10*3/uL 187* -- 155* INR 1.26* 1.17* -- PTT Seconds 30.4 27.6 -- TEG, coags wnl ARU 620 No coagulopathy on labs or per history DVT ppx: SCDs; hold sc heparin for 24 hours after surgery (restart 01/03 at 9AM) ========= ENDOCRINE Results from last 7 days Lab Units 01/02/25 0710 01/02/25 0646 01/02/25 0510 POC GLUCOSE, ARTERIAL mg/dL -- -- 98 POC GLUCOSE mg/dL 130* -- -- GLUCOSE mg/dL -- 141* -- BG goal 80-180 medium-dose ISS ========= MUSCULOSKELETAL AND INTEGUMENTARY Skin Exam: warm, dry, intact SCDs ========= Code Status: Full Code Disposition: ICU [facility] Neurocritical Care ICU White Team ICU Ph #[id number]; White Team IMU/Floor OLIVIA Ph #[id number] (available 03/01), #[id number] (available 6:30a - 4:30p) The patient has an illness or injury that has acutely impaired one or more vital organ systems. There is a high probability of imminent or life threatening deterioration in the patient's condition during this evaluation. This is the total time spent evaluating the patient, speaking with medical staff and family, interpreting studies, discussing the case with consultants and admitting teams, retrieving data and reviewing charts, documenting the visit, and performing bundled procedures required during patient management. TIME (IN MINUTES) SPENT 40 Day MD Day OLIVIA 40 Day Total TIME (IN MINUTES) SPENT Night MD Night OLVIIA (Nghia Christine NP) Night Total 40 TOTAL OF TIME (IN MINUTES) SPENT The patient was seen and examined by me at a separate time from the OLIVIA/Fellow/resident. I also reviewed the documentation and agree with the documented findings and plan of care. Additionally, I was directly involved in the management of the patient and provided the substantive portion of this visit, including examining the patient, obtaining history, and medical decision-making. Colleen Bland 2025-01-01 23:30:00 Neurocritical Care Consultation Note Consulted by NSGY for medical mgmt History Of Present Illness Sarthak Shane, 79 y.o. female with PMH of HTN, who presented on 01/01/2025 from OSH following AMS over 3 days with signs of recent trauma. Per history, patient was found on the ground by his son altered with L eye swelling and complaining of L shoulder pain. Initial CTH showed L acute on chronic SDH measuring up to [address] C Spine unremarkable. NSGY consulted for surgical evaluation. Admitted to NSICU for neuro monitoring and management. Interval Events: Past Medical History has no past medical history on file. Surgical History has no past surgical history on file. Family History No family history on file. Social History Allergies Patient has no allergy information on record. Home Medications (Not in a hospital admission) Review of Systems Unable to evaluate given clinical examination Physical Exam Further clinical exam documented under Impression and Plan by systems. ========= ASSESSMENT AND PLAN Sarthak Shane, 79 y.o. female with PMH of HTN, who presented on 01/01/2025 from OSH following AMS over 3 days with signs of recent trauma NEUROLOGIC S/p unwitnessed fall Left subacute SDH Brain compression Acute encephalopathy due to TBI Neuro Exam: Awake and alert Oriented to self and place Eyes open Pupils reactive, face symmetric Full strength 5/5 no drift Intact LT B 01/01: Initial CTH showed L acute on chronic SDH measuring up to 2 cm with MLS. 01/01: CT C Spine unremarkable CT CAP neg for traumatic injury Plan to OR for elizabeth holes Keppra 1g load, then 500mg q12h for 7 day for sz ppx ARU pending for unknown ASA use Endovascular team consulted for left MMA E consideration PT/OT/ASSISTANT CREDIT MANAGER as indicated ========= CARDIOVASCULAR Essential hypertension on admission CV Exam: RRR Temp: [36.4 ?C (97.5 ?F)] 36.4 ?C (97.5 ?F) Heart Rate: [60-89] 60 Resp: [05-04] 22 BP: (134-190)/(74-94) 147/74 SBP 100-150 PRN hydralazine, labetalol Syncope work-up Trop 7-> 7 EKG NSR R BBB TTE ordered ========= PULMONARY Pulm Exam: CTAB on room air w/ spO2>94% CXR ordered ========= GASTROINTESTINAL GI Exam: soft, non-distended, present bowl sounds Nutrition: Current Order: No diet orders on file GI route: PO bowel regimen: miralax, senna last BM COOK COLD MEAT Lab Results Component Value Date ALT 17 01/01/2025 AST 33 01/01/2025 Alkaline Phosphatase 87 01/01/2025 Bilirubin Total 1.30 (H) 01/01/2025 ========= RENAL Hypokalemia No intake or output data in the 24 hours ending 01/02/25 0033 Urine Output: 0mL in 24hrs mL/kg/hr (last 24hrs) Results from last 7 days Lab Units 01/01/25 2221 SODIUM mEq/L 144 POTASSIUM mEq/L 3.1* CHLORIDE mEq/L 111* CO2 mEq/L 22.9 BUN mg/dL 11 CREATININE mg/dL 0.77 CALCIUM mg/dL 9.7 ICU electrolyte replacement protocol NS 50 ml/hr while NPO no robert ========= INFECTIOUS DISEASE Temp (24hrs), Av.4 ?C (97.5 ?F), Min:36.4 ?C (97.5 ?F), Max:36.4 ?C (97.5 ?F) Results from last 7 days Lab Units 01/01/25 2221 WBC 10*3/uL 5.77 Monitor trend fever curve and WBC no ABX indicated ========= HEMATOLOGIC Results from last 7 days Lab Units 01/01/25 2221 HEMOGLOBIN g/dL 13.0 PLATELETS 10*3/uL 155* TEG, coags wnl ARU 620 No coagulopathy on labs or per history DVT ppx: SCDs; hold sc heparin ========= ENDOCRINE Results from last 7 days Lab Units 01/01/25 2221 GLUCOSE mg/dL 92 BG goal 80-180 medium-dose ISS ========= MUSCULOSKELETAL AND INTEGUMENTARY Skin Exam: warm, dry, intact ========= Code Status: No Order Disposition: ICU [facility] Neurocritical Care ICU White Team ICU Ph #[id number]; White Team IMU/Floor OLIVIA Ph #[id number] (available 03/01), #[id number] (available 6:30a - 4:30p) The patient has an illness or injury that has acutely impaired one or more vital organ systems. There is a high probability of imminent or life threatening deterioration in the patient's condition during this evaluation. This is the total time spent evaluating the patient, speaking with medical staff and family, interpreting studies, discussing the case with consultants and admitting teams, retrieving data and reviewing charts, documenting the visit, and performing bundled procedures required during patient management. TIME (IN MINUTES) SPENT Day MD Day OLIVIA Day Total TIME (IN MINUTES) SPENT 30 Night MD 20 Night OLIVIA (Nghia Christine NP) 50 Night Total TOTAL OF TIME (IN MINUTES) SPENT The patient was seen and examined by me at a separate time from the OLIVIA/Fellow/resident. I also reviewed the documentation and agree with the documented findings and plan of care. Additionally, I was directly involved in the management of the patient and provided the substantive portion of this visit, including examining the patient, obtaining history, and medical decision-making. Neurology Physician [facility] History and Physical Notes Date/Time Note Provider Source 2025-01-01 23:29:25 NEUROSURGERY History & Physical Date: 01/01/25 Patients Name: Sarthak Shane Admit Date: 01/01/2025 Admitting Provider: No att. providers found : 1945 Service: Neurosurgery Trauma Team Age/Sex: 79 y.o. female CHIEF COMPLAINT: - Chief Complaint: found down, AMS - Consult Time: 11:29 PM - Evaluation Time: 11:29 PM HISTORY AND PHYSICAL: Sarthak Shane is a 79 y.o. female with past medical history of HTN, recent infection who presents on 01/01/2025 for AMS over 3 days, signs of recent trauma. CTH shows L acute on chronic SDH measuring up to [address] . CT C Spine without acute abnormality. CT CAP pending. Family reports that patient was confused over phone today. Neighbors report patient has been confused for at least 3 days. Family did find patient with swelling of left eye concerning for recent trauma. Patient is confused during exam but does describe headaches for unspecified period of time. Prior to this patient was independent and lives alone. Patients endorses headache. Patient denies nausea, vomiting, dizziness, or new weakness. Blood thinner use includes none. NSGY consulted for manangement of SDH. REVIEW OF SYSTEMS: 14 point review of systems was performed and negative except for those noted in the HPI MEDICAL HISTORY: PAST MEDICAL HISTORY: No past medical history on file. PAST SURGICAL HISTORY: No past surgical history on file. PRE-ADMISSION MEDICATIONS: (Not in a hospital admission) ALLERGIES: Not on File SOCIAL HISTORY: - Hand dominance: right FAMILY HISTORY: Family history is non-contributory to current disease process No family history on file. VITAL SIGNS: Vitals: 01/01/25 2209 BP: (!) 134/93 Pulse: 89 Resp: (!) 11 SpO2: 95% PHYSICAL EXAM: Eyes open Fcx4 Alert and oriented x3 but with slurred speech, confusion Left pupil 3mm and brisk Right pupil 3 mm and brisk EOMI RUE full strength RLE full strength LUE full strength LLE full strength No drift LABS: Results from last 7 days Lab Units 01/01/25 2221 WBC 10*3/uL 5.77 HEMOGLOBIN g/dL 13.0 HEMATOCRIT % 38.3 PLATELETS 10*3/uL 155* LYMPHOCYTES % 27.6 MONOCYTES % 7.8 Results from last 7 days Lab Units 01/01/25 2221 SODIUM mEq/L 144 POTASSIUM mEq/L 3.1* CHLORIDE mEq/L 111* CO2 mEq/L 22.9 BUN mg/dL 11 CREATININE mg/dL 0.77 CALCIUM mg/dL 9.7 GLUCOSE mg/dL 92 No results found for: "PT", "INR", "PTT" Activated Clotting Time (TEG) Rapid Date Value Ref Range Status 01/01/2025 97 86 - 118 sec Final IMAGING: XR shoulder 2+ views left Final Result Trauma CT CHEST ABDOMEN PELVIS W IV CONTRAST (Results Pending) Trauma CT BRAIN WO IV CONTRAST (Results Pending) Trauma CT CERVICAL SPINE WO IV CONTRAST (Results Pending) NEURO ASSESSMENT/PLAN: Active Problems: There is no problem list on file for this patient. Assessment: Sarthak Shane is a 79 y.o. female with past medical history of HTN, recent infection who presents on 01/01/2025 for AMS over 3 days, signs of recent trauma. CTH shows L acute on chronic SDH measuring up to [address] CT C Spine without acute abnormality. CT CAP pending. Family reports that patient was confused over phone today. Neighbors report patient has been confused for at least 3 days. Family did find patient with swelling of left eye concerning for recent trauma. Patient is confused during exam but does describe headaches for unspecified period of time. Prior to this patient was independent and lives alone. Patients endorses headache. Patient denies nausea, vomiting, dizziness, or new weakness. Blood thinner use includes none. NSGY consulted for manangement of SDH. Impression (I have reviewed all pertinent neurosurgical imaging and agree with the findings below) : - Left acute on chronic SDH Plan: - Tentative plan for OR 01/02 for left-sided BH versus craniotomy for SDH evacuation -Admit to for monitoring -White team updated with admission and plan by NSGY -Repeat CT brain to assess stability at 0500 -CT c-spine negative for acute injury -Keppra 1g load, then 500mg q12h for 7 day for sz ppx -SBP 100-150 -Trauma work-up per ED -Syncope w/u including echo, orthostatic BP, and ECG; telemetry for 24h -NPO for possible OR -rTEG wnl - ARU pending for unknown ASA use - Will consult endovascular team for left MMA E consideration -Case discussed with sonJoseph at bedside -Please hold DVT ppx -We will continue to monitor neurologic exam - Please call [phone] with NSGY questions or concerns Dave Phillips MD [facility] Neurosurgery Cosigned by Noemi Powell MD at 01/02/2025 6:45 AM CDT Associated attestation - Noemi Powell MD - 01/02/2025 6:45 AM CDT I have reviewed the documented history, ROS, physical exam, and decision making and agree. To OR urgently for elizabeth hole drainage of large left subdural collection. [facility] Procedure Notes Date/Time Note Provider Source 2025-01-04 12:20:46 Interventional Radiology Brief Postprocedure Note Procedure: Diagnostic Cerebral Angiogram, L MMA embolization Preprocedure Diagnosis: SDH Postprocedure Diagnosis: Same as above Description of procedure: Diagnostic cerebral angiogram LCCA, LECA, coiling of L MMA Estimated Blood Loss: 20 mL Medications See anesthesia records Closure: TR band right wrist Findings: Successful embolization of L MMA with coils and NBCA glue. Plan: NIMU postprocedure Complications: None Anesthesia: General Anesthesia See detailed result report with images in PACS. The patient tolerated the procedure well without incident or complication and is in stable condition. Sanjay Donis MD Fellow, Cerebrovascular & Endovascular Neurosurgery [facility]surgery Physician [facility] 2025-01-02 04:25:00 Date: 01/02/2025 Diagnosis: Chronic subdural hematoma Procedures: LEFT SIDED ELIZABETH HOLES FOR SUBDURAL HEMATOMA EVACUATION (Left) Surgeons: * Noemi Powell - Primary [employer] And Print[employer] Restorer: Nick Pang Anesthesia: General Estimated Blood Loss: 50cc Drains: Drain 01/02/25 Closed drain, to suction Left Scalp (Active) Urethral Catheter (Active) Site Assessment Clean;Skin intact 01/02/25 0503 Placement Safety Checks QShift Closed System Seal Intact;Bag off floor;Tube free of kinks;Bag labeled with insertion date;No dependent loops in tubing;Urethral Cath Drainage bag <1000 cc urine 01/02/25 0503 Securement Method Securing device (Describe) 01/02/25 0503 Urine Output: 650 mL Wound Closure Type: Primary Closure (any portion of the skin closed or approximated) Wound Class: Clean Case Status: Emergent: no delay in providing operative intervention Anticipating return to OR: Anticipated Return to OR: No Is this patient on therapeutic antibiotics? Patient on theraputic antibiotics?: No Document Complications/Transfusions /Implants? None Procedure for cancer: Procedure for Cancer?: No Findings: chronic subdural Disposition: PACU Condition: stable Cosigned by Noemi Powell MD at 01/02/2025 6:45 AM CDT [facility] 2025-01-02 00:00:00 PATIENT NAME: SARTHAK SHANE CONTACT SERIAL NUMBER: [id number] DATE OF OPERATION/PROCEDURE: 01/02/2025 PREOPERATIVE DIAGNOSES: Left acute on chronic subdural hematoma measuring up to 2 cm midline shift. Intracranial hypertension. Altered mental status as a result of the above. POSTOPERATIVE DIAGNOSES: Left acute on chronic subdural hematoma measuring up to 2 cm midline shift. Intracranial hypertension. Altered mental status as a result of the above. PROCEDURES PERFORMED: Left-sided elizabeth hole drainage of subdural hematoma. Subdural external ventricular drain catheter placement. SURGEON: Noemi Powell MD. ASSISTANTS: Quang Means and Jose Pinzon. ANESTHESIA: General endotracheal. ESTIMATED BLOOD LOSS: 50 cc. SPECIMENS: None. COMPLICATIONS: No immediate. FINDINGS: Chronic appearing subdural hematoma fluid. INDICATIONS: Ms. Sahne is a 79-year-old female with past medical history of hypertension and recent infection, who presents with 3 days of altered mental status. CT head shows left acute on chronic subdural hematoma measuring up to 2 cm with significant midline shift. She has no confirmed recent trauma. Given the size of the subdural hematoma and extent of midline shift along with the patient's symptomatic presentation, urgent emergent decompression via elizabeth hole drainage was offered. Risks, benefits, alternatives were explained to the patient as well as her son who provided formal consent for the procedure described below. DESCRIPTION OF PROCEDURE: The patient was correctly identified and marked in the emergency department. She was taken directly to the operating room where she was intubated under general endotracheal anesthesia. She was carefully positioned supine on the operating table with the head turned to the right and the left side of the head up. The head was secured on a horseshoe tunnel heading supervisor. A bump was placed underneath the left shoulder. All pressure points were padded. She was secured to the table. The hair was clipped on the left side. The anterior and posterior incision were drawn over the superior temporal line. She was then prepped and draped in typical sterile fashion. A safety time-out was performed confirming site, laterality, patient, and procedure. Local anesthetic was instilled. Both incisions were opened sharply with a 10 blade scalpel and carried to bone with Bovie electrocautery. Ingrid clips were used for hemostasis. Self-retaining retractors were placed in both incisions. Meticulous hemostasis was maintained throughout with thrombin-soaked Gelfoam, FloSeal, bone wax, bipolar and monopolar electrocautery. A elizabeth hole maker was used to create elizabeth holes through both incisions. Bone wax was used for hemostasis. The dura was coagulated through both elizabeth holes. With bipolar electrocautery, monopolar electrocautery was turned down to a level of 15 and used to dissect the dura layer by layer through the anterior elizabeth hole and the final layer of dura was dissected. There was brisk egress of motor oil colored fluid under moderate to significant pressure consistent with chronic subdural hematoma. The monopolar was then used to create a durotomy through the posterior elizabeth hole. Copious sterile saline was irrigated gently through both elizabeth holes until it returned clear. A Bactiseal impregnated external ventricular drain was then carefully tunneled from the posterior elizabeth hole toward the anterior elizabeth hole to a depth of 6 cm. It was then tunneled with a trocar through the subgaleal space and secured at the skin. Additional irrigation after the external ventricular drain was successful in removing more chronic appearing subdural hematoma contents. The retractors and Ingrid clips were removed and additional hemostasis was achieved. Thrombin-soaked Gelfoam was packed in both elizabeth holes. Anterior elizabeth hole was covered with a titanium elizabeth hole cover and secured with 4 mm titanium screws. The galea in both incisions was closed with interrupted Vicryl sutures. The skin itself was closed with anabel. The external ventricular drain was connected to sterile drainage system, which had been primed with sterile saline. At the end of the case, all counts were correct x2. No immediate complications were identified. I was the attending of record and present and scrubbed for all critical portions of the procedure and immediately available throughout. At the end of the case, the patient's son was updated in the waiting area. Dictated by: NOEMI POWELL MD JRW / [facility] Neurosurgery Physician Colleen Bland Notes Scheduled Orders Date/Time Note Provider Source Health Maintenance Due Date Last Done Comments Bone Density Scan 1945 Diabetes: Hemoglobin A1C 1945 Lipid Panel 1945 Medicare Annual Wellness (AWV) 1945 Diabetes: Foot Exam 02/05/1956 Diabetes: Retinopathy Screening 02/05/1956 DTaP/Tdap/Td Vaccines (1 - Tdap) 1965 Diabetes: Urine Protein Screening 1964 Pneumococcal Vaccine: 50+ Years (1 of 1 - PCV) 02/05/1996 Zoster Vaccines (1 of 2) 02/05/1996 Respiratory Syncytial Virus (RSV) Adult Series (1 - 1-dose 75+ series) 2021 Influenza Vaccine (#1) 2025 3, 04/12/2022 HIB Vaccines Aged Out No longer eligi ble based on patient's age to complete this topic HPV Vaccines Aged Out No longer eligi ble based on patient's age to complete this topic Hepatitis A Vaccines Aged Out No long er eligible based on patient's age to complete this topic Hepatitis B Vaccines Aged Out No long er eligible based on patient's age to complete this topic IPV Vaccines Aged Out No longer eligi ble based on patient's age to complete this topic Meningococcal Vaccine Aged Out No rachana belle eligible based on patient's age to complete this topic Rotavirus Vaccines Aged Out No longer eligible based on patient's age to complete this topic Colleen [id number] 16:59:33 [id number] 16:59:33 [id number] 16:59:33 [id number] 17:57:36* Home Health (Routine) - Pending Review [facility]ty Diagnoses / [facility] Diagnoses SDH (subdural hematoma) (HCC) Marianna Sarmiento NP [address] [facility] [address] [place] [address] Phone: tel: fax: Referral ID Status Reason Start Date Expiration Date Visits Requested Visits Authorized [id number] Pending Review Specialty Services Required 01/05/2025 03/06/2025 999 999 [id number] 17:57:36* * Auth/Cert (Routine) Specialty Diagnoses / Procedures [facility] Diagnoses SDH (subdural hematoma) (HCC) Fall (SDH) Procedures HI [address] [place] [address] IP/OBS CARE SF/LOW MDM 40 MINUTES Noemi Powell MD [address] [facility] [address] [place] [address] Phone: tel: fax: [facility] (Main Operating Room) [address] [place] [address] Phone: tel: Referral ID Status Reason Start Date Expiration Date Visits Re quested Visits Authorized [id number] 1 1 [id number] 17:57:36* AUDIT-C Score Answer Date of Assessment Author 0 01/02/2025 5:54 PM JONAT Jamey Alarcon RN * * Over the past 2 weeks, how often have you been bothered by any of the following problems? Question Answer Date of Assessment Author Little interest or pleasure in doing things Not at all 01/02/2025 5:00 PM JONAT Domo Alarcon R N Feeling down, depressed, or hopeless Not at all 01/02/2025 5:00 PM JONADomo Rajput R N Patient Health Questionnaire -2 Score 0 01/02/2025 5:00 PM CDT Domo Alarcon R N * In the past month, have you... Question Answer Date of Assessment Author Had nightmares about the adela nts or thought about the events when you did not want to? No 01/02/2025 5:00 PM CDT Domo Alarcon R N Tried hard not to think abou t the events or went out of your way to avoid situations that reminded you of the events? No 01/02/2025 5:00 PM CDT Domo Alarcon R N Been constantly on guard, wa tchful, or easily startled? No 01/02/2025 5:00 PM CDT Domo Alarcon R N [place] numb or detached from p eople, activities, or your surroundings? No 01/02/2025 5:00 PM CDT Domo Shipley RN [place] guilty or unable to sto p blaming yourself or others for the events or any problems the events may have caused? No 01/02/2025 5:00 PM CDT Domo Alarcon RN * Primary Care PTSD Score Question Answer Date of Assessment Author Primary Care PTSD Total Score 1 01/02/2025 5:00 PM JONAT Domo Alarcon RN [id number] 17:57:36* Deepali Randall NP - 01/05/2025 4:08 PM CDT Discharge Diagnosis SDH (subdural hematoma) (HCC) Hospital Course Sarthak Shane, 79 y.o. female with PMH of HTN, who presented on 01/01/2025 from OSH following AMS over 3 days with signs of recent trauma. Per history, patient was found on the ground by her son altered with L eye swelling and complaining of L shoulder pain. Initial CTH showed L acute on chronic SDH measuring up to [address] C Spine unremarkable. Admitted to NSICU for neuro monitoring and management. Patient underwent left craniotomy for left SDH evacuation on 01/02/25. Also went for L MMA on 01/04/26, possible procedure complained of headaches and left eye pain and started on dex taper. She remains neuro intact. VS and labs WNL. Pt is medically clr for discharge to home with home health. Information Provided to Patient/Family I discussed with the patient/family details of the stay. See After Visit Summary which were reviewed and shared with patient/family. Operative Procedures Performed Procedure(s): LEFT SIDED ELIZABETH HOLES FOR SUBDURAL HEMATOMA EVACUATION Pertinent Physical Exam At Time of Discharge Physical Exam: Body mass index is 21.35 kg/m?. General: No acute distress. Cooperative, Appropriate mood & affect. Respiratory: Respirations are non-labored. Lungs are clear to auscultation. Cardiovascular: Normal rate, Regular rhythm. Gastrointestinal: Soft, Non-tender, Non-distended, Normal bowel sounds. Integumentary: Warm, Dry, Intact. Neurologic: intact Patient Condition at Discharge stable Disposition Home with Home Health [6] Discharge Medications New acetaminophen (Tylenol) 325 MG tablet - 650 mg Every 6 hours PRN dexAMETHasone (Decadron) 1 MG tablet - Multiple Dosages:3 mg, Every 6 hours scheduled, THEN 2 mg, Every 6 hours scheduled, THEN 1 mg, Daily famotidine (Pepcid) 20 MG tablet - 20 mg Daily levETIRAcetam (Keppra) 500 MG tablet - 500 mg Every 12 hours scheduled Changed ibuprofen 200 MG tablet - 200 mg Every 6 hours PRN - Pause or Hold status has changed. metFORMIN (Glucophage) 500 MG tablet - 500 mg 2 times daily - Pause or Hold status has changed. Continued albuterol HFA 90 mcg/act inhaler - 2 puff Every 4 hours PRN gabapentin (Neurontin) 800 MG tablet - 800 mg 3 times daily PRN HYDROmorphone (Dilaudid) 4 MG tablet - 4 mg 3 times daily methocarbamol (Robaxin) 750 MG tablet - 750 mg 2 times daily zolpidem (Ambien) 10 MG tablet - 10 mg Nightly PRN Cosigned by Shannan Mc MD at 01/05/2025 5:24 PM CDT Associated attestation - Shannan Mc, MD - 01/05/2025 5:24 PM CDT I saw the patient on the day of discharge and agree with the discharge plans and disposition. [id number] 17:57:36* Moose Brito MD - 01/05/2025 1:40 PM CDT NEUROSURGERY PROGRESS NOTE: Date: 01/04/25 Patients Name: Sarthak Shane Admit Date: 01/01/2025 Admitting Provider: Noemi Powell MD : 1945 Service: Neurosurgery Trauma Team Age/Sex: 79 y.o. female SUBJECTIVE: No neuro events. OBJECTIVE: Vitals: Vitals: 01/04/25 1630 01/04/25 1700 01/04/25 1800 01/04/251999 BP: 134/64 151/73 151/74 Pulse: (!) 49 63 57 Resp: (!) 11 14 13 Temp: 36.1 ?C (97 ?F) 37.5 ?C (99.5 ?F) SpO2: 96% 95% 96% I/O: Intake/Output Summary (Last 24 hours) at 01/04/2025 2234Last data filed at 01/04/2025 1630 Gross per 24 hour Intake 1000 ml Output 2679 ml Net -1679 ml PHYSICAL EXAM: Mental Status: AOx3 Following Commands x4 Cranial Nerves: CN II-XII grossly intact Pupils: PERRLA, EOMI Visual Victor: Full to confrontation Sensation: Intact to light touch throughout Reflexes: 2+ and symmetric throughout Coordination: Nhurcm-db-xuhe and jpbr-iy-weag intact bilaterally Face: Symmetric, no droop Speech: Fluent and clear LABS/IMAGING:Labs: Hgb Date Value Ref Range Status 01/04/2025 10.9 10.8 - 14.8 g/dL Final POC A Hct (calc)Date Value Ref Range Status 01/02/2025 36.0 34.1 - 44.9 % Final HctDate Value Ref Range Status 01/04/2025 33.7 (L) 33.9 - 45.4 % Final Plt CountDate Value Ref Range Status 01/04/2025 157 (L) 191 - 422 10*3/uL Final POC A NaDate Value Ref Range Status 01/02/2025 141 135 - 145 mEq/L Final Sodium LvlDate Value Ref Range Status 01/04/2025 144 136 - 145 mEq/L Final POC A KDate Value Ref Range Status 01/02/2025 2.9 (LL) 3.5 - 5.1 mEq/L Final Potassium LvlDate Value Ref Range Status 01/04/2025 3.7 3.4 - 4.5 mEq/L Final Creatinine LvlDate Value Ref Range Status 01/04/2025 0.70 0.55 - 1.02 mg/dL Final Prothrombin Time (PT)Date Value Ref Range Status 01/02/2025 15.9 (H) 12 - 14.7 Seconds Final PTTDate Value Ref Range Status 01/02/2025 27.9 22.9 - 35.8 Seconds Final Activated Clotting Time (TEG) RapidDate Value Ref Range Status 01/02/2025 113.0 86 - 118 sec Final Radiology Imaging Reviewed: - I have personally reviewed all pertinent NSGY imaging studies and agree with the findings under "impression" ASSESSMENT AND PLAN:Active Problems: Patient Active Problem List Diagnosis SDH (subdural hematoma) (HCC) Moderate malnutrition (CMS/HCC) (HCC) Pressure ulcer of left buttock, unstageable (HCC) Assessment: Sarthak Shane is a 79 y.o. female with past medical history of HTN, recent infection who presents on 01/01/2025 for AMS over 3 days, signs of recent trauma. CTH shows L acute on chronic SDH measuring up to [address] C Spine without acute abnormality. CT CAP pending. Family reports that patient was confused over phone today. Neighbors report patient has been confused for at least 3 days. Family did find patient with swelling of left eye concerning for recent trauma. Patient is confused during exam but does describe headaches for unspecified period of time. Prior to this patient was independent and lives alone. Patients endorses headache. Patient denies nausea, vomiting, dizziness, or new weakness. Blood thinner use includes none. NSGY consulted for manangement of SDH. Impression- Left acute on chronic SDH The patient is s/p elizabeth holes 01/02, w Dr. Powell-S/p L MMA Embo 01/04, Dr. Burnett I have seen and examined the patient. The patient is neurologically unchanged with postop changes on imaging. The drain has been removed. The patient is s/p left MMA embolization on 01/04. Given the stability of the exam neurosurgery will sign off. please call [phone] with questions. Moose Brito [facility] Neurosurgery Cosigned by Parag Garcia MD at 01/05/2025 1:41 PM CDT * Shannan Mc MD - 01/05/2025 9:23 AM CDT [facility] Query Clarification Progress Note As related to the inpatient hospital stay starting on 01/02/2025, 12:35 AM. I have reviewed the patient’s medical record and the following accurately represents the patient’s current condition. PROVIDER RESPONSE TEXT: Postoperative anemia Query Created By : Dea Hoover, 01/03/2025, 4:35 PM * Shannan Mc MD - 01/05/2025 8:08 AM CDT Neurocritical Care Progress Note Consulted by NSGY for medical mgmt History Of Present Illness Sarthak Shane, 79 y.o. female with PMH of HTN, who presented on 01/01/2025 from OSH following AMS over 3 days with signs of recent trauma. Per history, patient was found on the ground by her son altered with L eye swelling and complaining of L shoulder pain. Initial CTH showed L acute on chronic SDH measuring up to [address] C Spine unremarkable. NSGY consulted for surgical evaluation. Admitted to NSICU for neuro monitoring and management. Interval Events: 01/02: s/p L SDH evacuation 01/03: Bradycardic this morning (50s b/min), EKG ordered. Otherwise neurologically stable, ready for downgrad. 01/04: Plan to d/c SDD today, MMAE pending 01/04 pm: Following MMAE pt developed severe headache and L eye pain, started on dex taper, CTH stable 01/05: Headache improved/unchanged, no overnight events, monitor glu on steroid taper, robert discontinued this morning ASSESSMENT AND PLAN Sarthak Shane, 79 y.o. female with PMH of HTN, who presented on 01/01/2025 from OSH following AMS over 3 days with signs of recent trauma. 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 01/01: CT C Spine unremarkable CT CAP neg for traumatic injury S/p L craniotomy for L SDH evacuation 01/02/25 SDD 01/02 output: pending Post op CTH with expected changes Keppra 500mg q12h for 7 day for sz ppx Restart home gabapentin 800 q8 (takes prn at home) Restart home hydromorphone 4mg q8 Restart home robaxin 750 mg q12h S/p left MMAE Had severe [place] and L eye pain after procedure, likely due to glue product that is irritative to the dura. Vascular placed patient on steroid taper PT/OT/ASSISTANT CREDIT MANAGER as indicated CARDIOVASCULAR Essential hypertension on admission CV Exam: RRR Temp: [36.1 ?C (97 ?F)-37.5 ?C (99.5 ?F)] 37.5 ?C (99.5 ?F) Heart Rate: [47-77] 65 Resp: [11-22] 18 BP: (122-221)/(60-106) 136/68 SBP 100-150 PRN hydralazine, labetalol Stop cardene, on 2.5 Syncope work-up Trop 7-> 7 EKG NSR R BBB x2 pre and post op TTE: EF 60-65%, no pericardial effusion, no thrombus, no wall motion abnl Bradycardic this AM, EKG order for interval evolution of the R BBB PULMONARY Pulm Exam: CTAB on room air w/ spO2>94% CXR clear GASTROINTESTINAL GI Exam: soft, non-distended, present bowel sounds Nutrition: Current Order: Adult Diet Regular GI route: PO bowel regimen: miralax, senna last BM COOK COLD MEAT Lab Results Component Value Date ALT 17 01/05/2025 AST 40 01/05/2025 Alkaline Phosphatase 71 01/05/2025 Bilirubin Total 0.83 01/05/2025 RENAL Hypokalemia Intake/Output Summary (Last 24 hours) at 01/05/2025 0816 Last data filed at 01/05/2025 0400 Gross per 24 hour Intake 1000 ml Output 3066 ml Net -2066 ml Urine Output: 0mL in 24hrs mL/kg/hr (last 24hrs) Results from last 7 days Lab Units 07/26/25 0010 01/04/25 0416 01/03/25 0157 01/02/25 1522 01/02/25 1522 SODIUM mEq/L 143 144 146* -- 146* POTASSIUM mEq/L 4.7* 3.7 3.3* -- 3.4 CHLORIDE mEq/L 108* 107 111* -- 110* CO2 mEq/L 23.0 25.9 23.0 -- 24.7 BUN mg/dL 8* 14 15 -- 17 CREATININE mg/dL 0.75 0.70 0.77 -- 0.77 MAGNESIUM mg/dL -- 1.65 -- -- 1.63 PHOSPHORUS mg/dL -- 2.5 -- -- 3.8 CALCIUM mg/dL 7.9* 8.0* 8.1* -- 8.5 CALCIUM ION mmol/L -- -- -- -- 1.11 CALCIUM ION 7.4 mmol/L -- -- -- -- 1.15 CALCIUM ION WB mmol/L 1.07 1.17 1.05 < > -- CALCIUM ION WB 7.4 mmol/L 1.08 1.16 1.11 < > -- < > = values in this interval not displayed. Electrolytes WNL Stop IVF no robert INFECTIOUS DISEASE Temp (24hrs), Av.7 ?C (98.1 ?F), Min:36.1 ?C (97 ?F), Max:37.5 ?C (99.5 ?F) Results from last 7 days Lab Units 01/05/25 0010 01/04/25 0416 01/03/25 015 WBC 10*3/uL 3.84* 5.98 6.17 Monitor trend fever curve and WBC Leukopenia of unclear etiology, does not meet SIRS criteria, can monitor Cefazolin post op HEMATOLOGIC Results from last 7 days Lab Units 01/05/25 0010 01/04/25 0416 01/03/25 0157 01/02/25 1522 01/02/25 0646 01/02/25 0132 HEMOGLOBIN g/dL 11.2 10.9 10.4* 11.4 11.9 -- PLATELETS 10*3/uL 152* 157* 148* 169* 187* -- INR -- -- -- 1.25* 1.26* 1.17* PTT Seconds -- -- -- 27.9 30.4 27.6 TEG, coags wnl ARU 620 No coagulopathy on labs or per history DVT ppx: SCDs; ENDOCRINE Results from last 7 days Lab Units 01/05/25 0010 01/04/25 2119 01/04/25 1816 POC GLUCOSE mg/dL -- 168* 164* GLUCOSE mg/dL 212* -- -- BG goal 80-180 medium-dose ISS Dexamethasone taper 01/04-01/06: 4mg IV x1 dose, 3mg q6h x3d, 2mg q6h x2d, 1mg x1 dose Monitor glucose on steroid taper MUSCULOSKELETAL AND INTEGUMENTARY Skin Exam: warm, dry, intact SCDs, Heparin subcutaneous 5000 units q8h Code Status: Full Code Disposition: transfer to [facility] Neurocritical Care ICU White Team ICU Ph #[phone]; White Team IMU/Floor [facility] Ph #[phone] (available 03/01), #[phone] (available 6:30a - 4:30p) Attending Attestation - 01/05/25 The patient was seen and examined by me at a separate time from the OL[facility]. I also reviewed the documentation and agree with the documented findings and plan of care. Additionally, I was directly involved in the management of the patient and provided the substantive portion of this visit, including examining the patient, obtaining history, and medical decision-making. * Hannah Perez OT - 01/04/2025 2:25 PM CDT Treatment Session Note Patient Name: Sarthak Shane Today's Date: 01/04/2025 Preferred Language: Barb[place] Assessment & Plan Pt will benefit from further skilled OT services to increase independence when performing ADL Tasks. Pt demonstrates highly decreased performance of functional tasks and pt with decreased balance when performing functional tasks. Pt with decreased balance when sitting as well as decreased endurance and activity tolerance throughout the session. Pt with decreased performance of functional activity at this time and currently requires CGA throughout the session. Pt with min A to perform LB dressing throughout the session and noted with decreased balance when performing standing tasks. Pt with decreased standing tolerance noted throughout the session. Pt with decreased safety awareness noted throughout the session and demonstrates the need for safety cues throughout the session. Overall, pt with decreased performance of grooming, bathing and dressing throughout the session. OT will continue to follow while in house and address the aforementioned deficits. Thanks. Assessment: OT Assessment Results: Impaired ADL status, Impaired upper extremity range of motion, Impaired upper extremity strength, Impaired safe judgment during ADL, Impaired endurance, Impaired fine motor control, Impaired functional mobility, Impaired gross motor control, Impaired IADLs, Impaired right upper extremity, Impaired left upper extremity Prognosis: Fair Barriers to Discharge: Safety awareness Evaluation/Treatment Tolerance: Patient limited by fatigue Precautions: Plan: Treatment Plan/Goals Established with Patient/Caregiver: Yes Treatment Interventions: ADL retraining, Continued evaluation, Endurance training, Functional transfer training, Fine motor coordination activities, Orthotic/Orthotic management, UE strengthening/ROM OT Planned Treatments: Activities of Daily Living, Balance training, Cognitive training, Coordination, Therapeutic exercises, Therapeutic activities, Safety education, Neuromuscular reeducation, Mobility training OT Plan: Skilled OT OT Frequency: 3-5 times per week until discharge OT Duration: Discharge SubjectivePt reports "I am just ready to go home." ObjectiveOT arrives for session, Pt supine in bed upon arrival. RN oks session. Pt able to transition to the EOB with CGA. Pt able to perform standing with min A. Pt able to ambulate to the bathroom with CGA and able to perform toileting with CGA. Pt able to stand at the sink and perform grooming tasks for 10 min with CGA. Pt able to perform LB Dressing with CGA and education provided to pt throughout the session, pt verbalizes understanding. Pt returns to supine in bed with mod A. Pt with highly decreased safety awareness noted throughout the session. RN updated. Cognition:Orientation Level: Oriented X4 Self Care (ADL):Eating Assistance: Supervision/touching assistance Grooming Assistance: Supervision/touching assistance Bathing Assistance: Partial/Mod assistance UE Dressing Assistance: Supervision/touching assistance LE Dressing Assistance: Supervision/touching assistance TreatmentSelf-Care: Eating Assistance: Supervision/touching assistance Grooming Assistance: Supervision/touching assistance Bathing Assistance: Partial/Mod assistance UE Dressing Assistance: Supervision/touching assistance LE Dressing Assistance: Supervision/touching assistance Bed Mobility: Bed Mobility 1Level of Assistance 1: Supervision/touching assistance Bed Mobility To/From: Roll lying on back to left, Roll lying on back to right, Supine to sit on EOB Transfers: Transfer 1Technique 1: Via walking Level of Assistance 1: Supervision/touching assistance, Partial/Mod assistance Transfer To/From: Chair AM-PAC Daily Activity:Putting on and taking off regular lower body clothing: A Lot Bathing (including washing, rinsing, drying): A Little Toileting, which includes using toilet, bedpan or urinal: A Little Putting on and taking off regular upper body clothing: A Little Taking care of personal grooming such as brushing teeth: A Little Eating Meals: None AM-PAC Daily Activity Raw Score: 18 Modified [place]io Patient Education: Education Documentation No documentation found. Education Comments No comments found. Goals:Encounter Goals Encounter Goals (Active) Pt will demonstrate understanding of home safety throughout the session and require no cues for safety Start: 01/03/25 Expected End: 01/16/25 Patient demonstrates increased functional mobility and/or endurance by tolerating >10 min of OOB activities Start: 01/03/25 Expected End: 01/16/25Ability to perform basic physical tasks and personal care activities. Pt will sequence ADL Tasks with min A throughout the session and require min verbal cues throughout the session. Start: 01/03/25 Expected End: 01/16/25Ability to perform basic physical tasks and personal care activities. Treatment Note: If this is the last documented treatment, then it will signify discharge from acute care prior to discharge from the therapy service and will serve as the discharge summary. Hannah Perez OT * Michelle Jay - 01/04/2025 1:37 PM CDT Spiritual Care Subjective Responded to Admissions Request. Med team at bedside. Will follow as circumstances allow. PlanFollow-up: Follow PRN * Courtney Elena LMSW - 01/04/2025 12:20 PM CDT 01/04/25 1218 Discharge Planning Patient expects to be discharged to: Home w/HH Expected Discharge Disposition HH Services Discharge Planning Status In Progress CASE MANAGEMENT ROUTINE DISCHARGE PLAN NOTE LOS: 2 Barriers to Discharge: 01/04 drain removal, 01/04 MMA DISCHARGE PLAN A: Home w/HH DME: rw - (pt already has) DISCHARGE PLAN B: n/a SAILAJA: 01/05 Last Recorded Vitals: Blood pressure 121/73, pulse 53, temperature 36.1 ?C (97 ?F), resp. rate 17, height 1.651 m (5' 5"), weight 58.2 kg (128 lb 4.9 oz), SpO2 94%. Current Diet: Adult Diet Regular Courtney Elena LMSW, LUBNA ESCOBAR Supervisor Finishing - Neuro Service Line * Denise Ramsey PT - 01/04/2025 10:29 AM CDT Treatment Session Note Patient Name: Sarthak Shane Today's Date: 01/04/2025 Preferred Language: Barbadian Assessment & Plan Assessment: Consulted w/ RN prior to seeing pt. Subdural drain has been removed. Pt was received supine in bed w/ son present in room. Pt completed bed mobility & transfers w/ SBA. Pt amb 100ft w/o AD & CGA. Session cut short as staff came to take pt to [facility]. At the end of the session, pt was left sitting EOB w/ RN, son, and other staff members present in room. Pt requesting Rolling Walker for home. Plan: PT Frequency: 3-5 times per week until discharge Equipment Recommended: Walker- rolling PT Recommended Transfer Status: (CGA) Objective General Visit Information: PT Last Visit Date of Last PT Treatment: 01/04/25 Activity Tolerance: Cognition Treatment Bed Mobility: Bed Mobility 1: Level of Assistance 1: Supervision/touching assistance Bed Mobility To/From: Supine to sit on EOB Transfers: Transfers 1: Level of Assistance 1: Supervision/touching assistance Transfer To/From: [id number] Assistive Devices And Adaptive Equipments: No device Gait training: Gait Training Activity 1: Distance (enter in feet): 100ft Assistive Devices And Adaptive Equipments: No device Level of Assistance 1: Supervision/touching assistance AM-PAC Basic Mobility:AM-PAC Basic Mobility Inpatient Turning in bed without bedrails: A Little Lying on back to sitting on edge of flat bed: A Little Bed to chair: A Little Standing up from chair: A Little Walk in room: A Little Climbing 3-5 stairs: A Little Mobility Inpatient Raw Score: 18 JH-HLM Goal: 6 Mobility: Highest Level of Mobility Performed (JH-HLM)JH-HLM Goal: 6 Highest Level of Mobility Performed (JH-HLM): Walked 25 feet or more (i.e. walked outside of room) Modified [place] Patient Education: Education Documentation No documentation found. Education Comments No comments found. Goals:Encounter Goals Encounter Goals (Active) Patient will ambulate 150ft distance using LRAD with no assistance Start: 01/03/25 Expected End: 01/31/25 Patient will perform chair to and from bed transfer with no assistance Start: 01/03/25 Expected End: 01/31/25 Patient will perform supine to sit on bed with no assistance demonstrating control Start: 01/03/25 Expected End: 01/31/25 Treatment Note: If this is the last documented treatment, then it will signify discharge from acute care prior to discharge from the therapy service and will serve as the discharge summary. Denise Ramsey PT * Shannan Mc MD - 01/04/2025 10:03 AM CDT Neurocritical Care Progress Note Consulted by NSGY for medical mgmt History Of Present Illness Sarthak Shane, 79 y.o. female with PMH of HTN, who presented on 01/01/2025 from OSH following AMS over 3 days with signs of recent trauma. Per history, patient was found on the ground by her son altered with L eye swelling and complaining of L shoulder pain. Initial CTH showed L acute on chronic SDH measuring up to [address] C Spine unremarkable. NSGY consulted for surgical evaluation. Admitted to NSICU for neuro monitoring and management. Interval Events: 01/02: s/p L SDH evacuation 01/03: Bradycardic this morning (50s b/min), EKG ordered. Otherwise neurologically stable, ready for downgrad. 01/04: Plan to d/c SDD today, MMAE pending ASSESSMENT AND PLAN Sarthakrosalia Shane, 79 y.o. female with PMH of HTN, who presented on 01/01/2025 from OSH following AMS over 3 days with signs of recent trauma. 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 01/01: CT C Spine unremarkable CT CAP neg for traumatic injury S/p L craniotomy for L SDH evacuation 01/02/25 SDD 01/02 output: pending Post op CTH with expected changes Keppra 1g load, then 500mg q12h for 7 day for sz ppx Restart home gabapentin 800 q8 (takes prn at home) Restart home hydromorphone 4mg q8 Restart home robaxin 750 mg q12h Endovascular team consulted for left MMA E consideration PT/OT/ASSISTANT CREDIT MANAGER as indicated CARDIOVASCULAR Essential hypertension on admission CV Exam: RRR Temp: [36.1 ?C (97 ?F)-37.1 ?C (98.7 ?F)] 36.1 ?C (97 ?F) Heart Rate: [46-68] 53 Resp: [17-27] 17 BP: (102-152)/(57-125) 121/73 SBP 100-150 PRN hydralazine, labetalol Stop cardene, on 2.5 Syncope work-up Trop 7-> 7 EKG NSR R BBB x2 pre and post op TTE: EF 60-65%, no pericardial effusion, no thrombus, no wall motion abnl Bradycardic this AM, EKG order for interval evolution of the R BBB PULMONARY Pulm Exam: CTAB on room air w/ spO2>94% CXR clear GASTROINTESTINAL GI Exam: soft, non-distended, present bowel sounds Nutrition: Current Order: Adult Diet Regular GI route: PO bowel regimen: miralax, senna last BM COOK COLD MEAT Lab Results Component Value Date ALT 16 01/04/2025 AST 32 01/04/2025 Alkaline Phosphatase 69 01/04/2025 Bilirubin Total 0.69 01/04/2025 RENAL Hypokalemia Intake/Output Summary (Last 24 hours) at 01/04/2025 1003 Last data filed at 01/04/2025 0515 Gross per 24 hour Intake -- Output 946 ml Net -946 ml Urine Output: 0mL in 24hrs mL/kg/hr (last 24hrs) Results from last 7 days Lab Units 01/04/25 0416 01/03/25 0157 01/02/25 1522 SODIUM mEq/L 144 146* 146* POTASSIUM mEq/L 3.7 3.3* 3.4 CHLORIDE mEq/L 107 111* 110* CO2 mEq/L 25.9 23.0 24.7 BUN mg/dL 14 15 17 CREATININE mg/dL 0.70 0.77 0.77 MAGNESIUM mg/dL 1.65 -- 1.63 PHOSPHORUS mg/dL 2.5 -- 3.8 CALCIUM mg/dL 8.0* 8.1* 8.5 CALCIUM ION mmol/L -- -- 1.11 CALCIUM ION 7.4 mmol/L -- -- 1.15 CALCIUM ION WB mmol/L 1.17 1.05 -- CALCIUM ION WB 7.4 mmol/L 1.16 1.11 -- Electrolytes WNL Stop IVF no robert INFECTIOUS DISEASE Temp (24hrs), Av.7 ?C (98.1 ?F), Min:36.1 ?C (97 ?F), Max:37.1 ?C (98.7 ?F) Results from last 7 days Lab Units 01/04/25 0416 01/03/25 0157 01/02/25 1522 WBC 10*3/uL 5.98 6.17 5.89 Monitor trend fever curve and WBC Cefazolin post op HEMATOLOGIC Results from last 7 days Lab Units 01/04/25 0416 01/03/25 0157 01/02/25 1522 01/02/25 0646 01/02/25 0132 HEMOGLOBIN g/dL 10.9 10.4* 11.4 11.9 -- PLATELETS 10*3/uL 157* 148* 169* 187* -- INR -- -- 1.25* 1.26* 1.17* PTT Seconds -- -- 27.9 30.4 27.6 TEG, coags wnl ARU 620 No coagulopathy on labs or per history DVT ppx: SCDs; ENDOCRINE Results from last 7 days Lab Units 01/04/25 0858 01/04/25 0416 01/03/25 1712 POC GLUCOSE mg/dL 136* -- 93 GLUCOSE mg/dL -- 128* -- BG goal 80-180 medium-dose ISS MUSCULOSKELETAL AND INTEGUMENTARY Skin Exam: warm, dry, intact SCDs, Heparin subcutaneous 5000 units q8h Code Status: Full Code Disposition: transfer to IMU [facility] Neurocritical Care ICU White Team ICU Ph #[phone]; White Team IMU/Floor [facility] Ph #[phone] (available 03/01), #[phone] (available 6:30a - 4:30p) Attending Attestation - 01/04/25 The patient was seen and examined by me at a separate time from the [facility]. I also reviewed the documentation and agree with the documented findings and plan of care. Additionally, I was directly involved in the management of the patient and provided the substantive portion of this visit, including examining the patient, obtaining history, and medical decision-making. * Clyde Bautista MD - 01/04/2025 3:39 AM CDT NEUROSURGERY PROGRESS NOTE: Date: 01/04/25 Patients Name: Sarthak Shane Admit Date: 01/01/2025 Admitting Provider: Noemi Powell MD : [id number] Service: Neurosurgery Trauma Team Age/Sex: 79 y.o. female SUBJECTIVE: No neuro events. OBJECTIVE: Vitals: Vitals: 01/03/25 1642 01/03/25 1700 01/03/25 1800 01/03/25 2338 BP: 120/61 140/84 Pulse: 66 60 Resp: Temp: 36.6 ?C (97.8 ?F) 37.1 ?C (98.7 ?F) SpO2: 96% 96% I/O: Intake/Output Summary (Last 24 hours) at 01/04/2025 0339Last data filed at 01/03/2025 1900 Gross per 24 hour Intake -- Output 893 ml Net -893 ml PHYSICAL EXAM: Eyes open Fcx4 Alert and oriented x3 Left pupil 3mm and brisk Right pupil 3 mm and brisk EOMI LABS/IMAGING: Labs: Hgb Date Value Ref Range Status 01/03/2025 10.4 (L) 10.8 - 14.8 g/dL Final POC A Hct (calc)Date Value Ref Range Status 01/02/2025 36.0 34.1 - 44.9 % Final HctDate Value Ref Range Status 01/03/2025 32.6 (L) 33.9 - 45.4 % Final Plt CountDate Value Ref Range Status 01/03/2025 148 (L) 191 - 422 10*3/uL Final POC A NaDate Value Ref Range Status 01/02/2025 141 135 - 145 mEq/L Final Sodium LvlDate Value Ref Range Status 01/03/2025 146 (H) 136 - 145 mEq/L Final POC A KDate Value Ref Range Status 01/02/2025 2.9 (LL) 3.5 - 5.1 mEq/L Final Potassium LvlDate Value Ref Range Status 01/03/2025 3.3 (L) 3.4 - 4.5 mEq/L Final Creatinine LvlDate Value Ref Range Status 01/03/2025 0.77 0.55 - 1.02 mg/dL Final Prothrombin Time (PT)Date Value Ref Range Status 01/02/2025 15.9 (H) 12 - 14.7 Seconds Final PTTDate Value Ref Range Status 01/02/2025 27.9 22.9 - 35.8 Seconds Final Activated Clotting Time (TEG) RapidDate Value Ref Range Status 01/02/2025 113.0 86 - 118 sec Final Radiology Imaging Reviewed: - I have personally reviewed all pertinent GY imaging studies and agree with the findings under "impression" ASSESSMENT AND PLAN:Active Problems: Patient Active Problem List Diagnosis SDH (subdural hematoma) (HCC) Moderate malnutrition (CMS/HCC) (HCC) Pressure ulcer of left buttock, unstageable (HCC) Assessment: Sarthak Shane is a 79 y.o. female with past medical history of HTN, recent infection who presents on 01/01/2025 for AMS over 3 days, signs of recent trauma. CTH shows L acute on chronic SDH measuring up to [address] CT C Spine without acute abnormality. CT CAP pending. Family reports that patient was confused over phone today. Neighbors report patient has been confused for at least 3 days. Family did find patient with swelling of left eye concerning for recent trauma. Patient is confused during exam but does describe headaches for unspecified period of time. Prior to this patient was independent and lives alone. Patients endorses headache. Patient denies nausea, vomiting, dizziness, or new weakness. Blood thinner use includes none. NSGY consulted for manangement of SDH. Impression (I have reviewed all pertinent neurosurgical imaging and agree with the findings below) : - Left acute on chronic SDH The patient is s/p elizabeth holes I have seen and examined the patient. The patient is neurologically unchanged with postop changes on imaging. The drain appears to be clotted, so we will remove it. No open neurosurgical interventions are indicated at this time, but she is planned for MMA embo. We will monitor the exam. Please call [phone] with questions. Clyde Bautista [facility] Neurosurgery * ADRIANNA CasianoASSISTANT CREDIT MANAGER - 01/03/2025 3:23 PM CDT Speech-Language Pathology Encounter Note Patient Name: Sarthak Shane Today's Date: 01/03/2025 Pt reports speech, language, and cognitive function are at baseline. Additional Individuals Present: Yes Others Present: 1 family member at b/s Speech Language Cognitive Evaluation N/A 2/2 pt reports speech, language, and cognitive function are at baseline. No further ST indicated at this time. DONALD Casiano * Hannah Perez OT - 01/03/2025 2:32 PM CDT Evaluation and Treatment Patient Name: Sarthak Shane Today's Date: 01/03/2025 Preferred Language: Barbadian Assessment & Plan Pt will benefit from further skilled OT services to increase independence when performing ADL Tasks. Pt demonstrates highly decreased performance of functional tasks and pt with decreased balance when performing functional tasks. Pt with decreased balance when sitting as well as decreased endurance and activity tolerance throughout the session. Pt with decreased performance of functional activity at this time and currently requires CGA throughout the session. Pt with min A to perform LB dressing throughout the session and noted with decreased balance when performing standing tasks. Pt with decreased standing tolerance noted throughout the session. Pt with decreased safety awareness noted throughout the session and demonstrates the need for safety cues throughout the session. Overall, pt with decreased performance of grooming, bathing and dressing throughout the session. OT will continue to follow while in house and address the aforementioned deficits. Thanks. Assessment: OT Assessment Results: Impaired ADL status, Impaired upper extremity strength, Impaired functional mobility, Impaired gross motor control, Impaired IADLs Prognosis: Excellent Evaluation/Treatment Tolerance: Patient limited by fatigue Plan: Treatment Interventions: ADL retraining, Cognitive reorientation, Compensatory technique education, Endurance training, Functional transfer training, Fine motor coordination activities, Neuromuscular reeducation, Orthotic/Orthotic management, UE strengthening/ROM OT Planned Treatments: Activities of Daily Living, Coordination, Home program, Mobility training, Therapeutic activities, Therapeutic exercises OT Plan: Skilled OT OT Frequency: 3-5 times per week until discharge OT Duration: Discharge Subjective Current Problem: Sarthak Shane, 79 y.o. female with PMH of HTN, who presented on 01/01/2025 from OSH following AMS over 3 days with signs of recent trauma. Per history, patient was found on the ground by her son altered with L eye swelling and complaining of L shoulder pain. Initial CTH showed L acute on chronic SDH measuring up to [address] C Spine unremarkable. NSGY consulted for surgical evaluation. Admitted to NSICU for neuro monitoring and management. Objective OT arrives for session, Pt supine in bed upon arrival. LEO oks session. Pt able to transition to the EOB with CGA. Pt able to perform standing with min A. Pt able to ambulate to the bathroom with CGA and able to perform toileting with CGA. Pt able to stand at the sink and perform grooming tasks for 10 min with CGA. Pt able to perform LB Dressing with CGA and education provided to pt throughout the session, pt verbalizes understanding. Pt returns to supine in bed with mod A. Pt with highly decreased safety awareness noted throughout the session. LEO Osorio updated. General Visit Information: Additional Individuals Present: No Precautions: Cognition: Overall Cognitive Status: Within Functional Limits Behavior/Cognition: Cooperative, Pleasant mood Orientation Level: Oriented X4 Home Living:Type of Home: House Lives With: Family Prior Function:ADL Assistance: Independent Social History:Patient Roles: Volunteer, Caregiver for pet Patient Responsibilities: Community mobility, Driving, management engineer, Personal ADL Prior IADL: Self Care (ADL): Eating Assistance: Partial/Mod assistance Grooming Assistance: Supervision/touching assistance Bathing Deficit: Supervision/safety Bathing Assistance: Partial/Mod assistance UE Dressing Assistance: Partial/Mod assistance UE Dressing Deficit: Supervision/safety LE Dressing Assistance: Partial/Mod assistance Toileting Assistance: Partial/Mod assistance AM-PAC Daily Activity:Putting on and taking off regular lower body clothing: A Lot Bathing (including washing, rinsing, drying): A Lot Toileting, which includes using toilet, bedpan or urinal: A Little Putting on and taking off regular upper body clothing: A Little Taking care of personal grooming such as brushing teeth: A Little Eating Meals: None AM-PAC Daily Activity Raw Score: 17 Patient Education:Education Documentation No documentation found. Education Comments No comments found. Goals:Encounter Goals Encounter Goals (Active) Pt will demonstrate understanding of home safety throughout the session and require no cues for safety Start: 01/03/25 Expected End: 01/16/25 Patient demonstrates increased functional mobility and/or endurance by tolerating >10 min of OOB activities Start: 01/03/25 Expected End: 01/16/25Ability to perform basic physical tasks and personal care activities. Pt will sequence ADL Tasks with min A throughout the session and require min verbal cues throughout the session. Start: 01/03/25 Expected End: 01/16/25Ability to perform basic physical tasks and personal care activities. Treatment Note: If this is the last documented treatment, then it will signify discharge from acute care prior to discharge from the therapy service and will serve as the discharge summary. Hananh Perez OT * Odalys Carver LMSW - 01/03/2025 10:25 AM CDT Plan A: HH SN PT Plan B: Op PT (not interested in IPR/SNF) CM asked whether patient will have adequate help at home after discharge: family is willing and has capacity to assist and care for patient; able to assist with f/u appointments if needed, including transportation. Patient's/Family's response: Yes 01/03/25 1000 Readmission Questions Is this hospital visit a Readmission? No Discharge Planning Information Source Self Permanent Residence Private residence ([address], [address], [place] [address]) Permanent Residence Type Downstairs apartment Household Members Alone Support Systems Children (son, Joseph Yousif, ) Arrived From Permanent Residence Barriers to Discharge Home penidng evals, med clear, etc In the last 12 months, was there a time when you were not able to pay the mortgage or rent on time? N In the past 12 months, how many times have you moved where you were living? 0 At any time in the past 12 months, were you homeless or living in a detention (including now)? N In the past 12 months has the electric, gas, oil, or water [employer] threatened to shut off services in your home? No Within the past 12 months, you worried that your food would run out before you got the money to buy more. Never true Within the past 12 months, the food you bought just didn't last and you didn't have money to get more. Never true Assistive Devices Cane;Walker Assistance Needed Indp prior to admit Patient expects to be discharged to: HH SNPT vs OP PT Expected Discharge Disposition HH Services (Pt not agreeable to therapy at facility) Caregiver assessment needed? Yes Patient will have adequate help at home after discharge Yes Caregiver is willing and has capacity to assist and care for patient Yes Caregiver is able to assist with follow up appointments and transportation Yes Caregiver Name and Contact Information Joseph Yousif, Anticipated Services at Discharge In home services Type of Home Care Services Home PT;Home nursing visits In the past 12 months, has lack of transportation kept you from medical appointments or from getting medications? no In the past 12 months, has lack of transportation kept you from meetings, work, or from getting things needed for daily living? No Does the patient need discharge transport arranged? No Discharge Planning Comments DPA completed with Pt and son, Joseph Yousif, , at bedside. Pt has the ability to answer questions and confirm information on facesheet. Discharge Planning Status Initial Assessment Complete Odalys Carver LMSW Numerologist Case Management Department (O)[phone] ([phone] [email or web address] * Denise Ramsey, PT - 01/03/2025 9:34 AM CDT Evaluation and Treatment Note Patient Name: Sarthak Shane Today's Date: 01/03/2025 Preferred Language: Barbadian Assessment & Plan Assessment: Consulted w/ RN prior to seeing pt. RN clamped subdural drain at start of session. outer diameter technician assisting w/ line management. Pt was received supine in bed w/ son present in room. Pt completed bed mobility & transfers w/ CGA. Pt amb 100ft w/ RW & CGA. At the end of the session, pt was left semi-fowlers in bed w/ bed alarm on and son present in room. Plan: Treatment Plan/Goals Established with Patient/Caregiver: Yes Treatment/Interventions: Balance training, Bed mobility training, Caregiver training, Equipment training, Functional activities, Gait training, Neuromuscular re-education, Pain management, Patient education, Positioning, Posture/Body mechanics baring, Stair training, Therapeutic exercises, Transfer training PT Plan: Skilled PT PT Frequency: 3-5 times per week until discharge Equipment Recommended: Walker- rolling PT Recommended Transfer Status: (CGA w/ RW) Per H&P: "Sarthak Shane is a 79 y.o. female with past medical history of HTN, recent infection who presents on 01/01/2025 for AMS over 3 days, signs of recent trauma. CTH shows L acute on chronic SDH measuring up to [address] C Spine without acute abnormality. CT CAP pending. Family reports that patient was confused over phone today. Neighbors report patient has been confused for at least 3 days. Family did find patient with swelling of left eye concerning for recent trauma. Patient is confused during exam but does describe headaches for unspecified period of time. Prior to this patient was independent and lives alone. Patients endorses headache. Patient denies nausea, vomiting, dizziness, or new weakness. Blood thinner use includes none. NSGY consulted for manangement of SDH. Impression (I have reviewed all pertinent neurosurgical imaging and agree with the findings below) : - Left acute on chronic SDH The patient is s/p elizabeth holes" Home Living:Type of Home: House Lives With: Alone Home Adaptive Equipment: Rollator Prior Level of Function:Level of [place]: (Amb IND w/o AD) ADL Assistance: Independent Homemaking Assistance: Independent Prior Function Comments: At hospital d/c, sister and adult granddaughter will take turns staying with her to assist as needed. At baseline, pt independent w/ all ADLs/IADLs, including driving. ObjectiveGeneral Visit Information: Functional Assessments:Bed Mobility Bed Mobility 1: Level of Assistance 1: Supervision/touching assistance Bed Mobility To/From: Supine to sit on EOB Assistive Devices And Adaptive Equipments: No device Transfers Transfers 1:Level of Assistance 1: Supervision/touching assistance Transfer To/From: [id number]/[id number] Assistive Devices And Adaptive Equipments: Walker, front-wheeled Gait Gait Training Activity 1: Distance (enter in feet): 100ft Assistive Devices And Adaptive Equipments: Walker, front-wheeled Level of Assistance 1: Supervision/touching assistance AM-PAC Basic Mobility:Turning in bed without bedrails: A Little Lying on back to sitting on edge of flat bed: A Little Bed to chair: A Little Standing up from chair: A Little Walk in room: A Little Climbing 3-5 stairs: A Little Mobility Inpatient Raw Score: 18 JH-HLM Goal: 6 Mobility: Highest Level of Mobility Performed (JH-HLM)Walked 25 feet or more (i.e. walked outside of room) Modified [place] Patient Education: Education Documentation Physical Therapy Plan of Care, taught by Denise Ramsey PT at 01/03/2025 2:22 PM. Learner: Patient Readiness: Acceptance Method: Explanation Response: Verbalizes Understanding Education CommentsNo comments found. Goal:Encounter Goals Encounter Goals (Active) Patient will ambulate 150ft distance using LRAD with no assistance Start: 01/03/25 Expected End: 01/31/25 Patient will perform chair to and from bed transfer with no assistance Start: 01/03/25 Expected End: 01/31/25 Patient will perform supine to sit on bed with no assistance demonstrating control Start: 01/03/25 Expected End: 01/31/25 Treatment Note: If this is the last documented treatment, then it will signify discharge from acute care prior to discharge from the therapy service and will serve as the discharge summary. Denise Ramsey PT * Shannan Mc MD - 01/03/2025 7:38 AM CDT Neurocritical Care Consultation Note Consulted by NSGY for medical mgmt History Of Present Illness Sarthak Shane, 79 y.o. female with PMH of HTN, who presented on 01/01/2025 from OSH following AMS over 3 days with signs of recent trauma. Per history, patient was found on the ground by her son altered with L eye swelling and complaining of L shoulder pain. Initial CTH showed L acute on chronic SDH measuring up to [address] C Spine unremarkable. NSGY consulted for surgical evaluation. Admitted to NSICU for neuro monitoring and management. Interval Events: 01/02: s/p L SDH evacuation 01/03: Bradycardic this morning (50s b/min), EKG ordered. Otherwise neurologically stable, ready for downgrad. Past Medical History has a past medical history of Diabetes mellitus (HCC) and Hypertension. Surgical History has no past surgical history on file. Family History No family history on file. Social History Social History Substance Use Topics Alcohol use: Never Allergies Patient has no known allergies. Home Medications No medications prior to admission. Review of Systems Unable to evaluate given clinical examination Physical Exam Further clinical exam documented under Impression and Plan by systems. ASSESSMENT AND PLAN Sarthak Shane, 79 y.o. female with PMH of HTN, who presented on 01/01/2025 from OSH following AMS over 3 days with signs of recent trauma. 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 01/01: CT C Spine unremarkable CT CAP neg for traumatic injury S/p L craniotomy for L SDH evacuation 01/02/25 SDD 01/02 output: pending Post op CTH with expected changes Keppra 1g load, then 500mg q12h for 7 day for sz ppx Restart home gabapentin 800 q8 Restart home hydromorphone 4mg q8 Restart home robaxin 750 q12 Endovascular team consulted for left MMA E consideration PT/OT/ASSISTANT CREDIT MANAGER as indicated CARDIOVASCULAR Essential hypertension on admission CV Exam: RRRTemp: [36 ?C (96.8 ?F)-37 ?C (98.6 ?F)] 36.1 ?C (97 ?F) Heart Rate: [54-93] 56 Resp: [12-30] 20 BP: (110-155)/(55-73) 130/73 Arterial Line BP 1: (106-155)/(39-60) 122/47 SBP 100-150PRN hydralazine, labetalol Stop cardene, on 2.5 Syncope work-upTrop 7-> 7 EKG NSR R BBB EKG repeat after OR pending TTE: EF 60-65%, no pericardial effusion, no thrombus, no wall motion abnl Bradycardic this AM, EKG order for interval evolution of the R BBB PULMONARY Pulm Exam: CTAB on room air w/ spO2>94%CXR clear GASTROINTESTINAL GI Exam: soft, non-distended, present bowel sounds Nutrition:Current Order: Adult Diet Regular GI route: PO bowel regimen: miralax, senna last BM COOK COLD MEAT Lab ResultsComponent Value Date ALT 15 01/02/2025 AST 24 01/02/2025 Alkaline Phosphatase 76 01/02/2025 Bilirubin Total 1.55 (H) 01/02/2025 RENAL Hypokalemia Intake/Output Summary (Last 24 hours) at 01/03/2025 0738Last data filed at 01/03/2025 0600 Gross per 24 hour Intake 207.92 ml Output 548 ml Net -340.08 ml Urine Output:0mL in 24hrs mL/kg/hr (last 24hrs) Results from last 7 daysLab Units 01/03/25 0157 01/02/25 1522 01/02/25 0646 SODIUM mEq/L 146* 146* 146* POTASSIUM mEq/L 3.3* 3.4 3.3* CHLORIDE mEq/L 111* 110* 108* CO2 mEq/L 23.0 24.7 23.1 BUN mg/dL 15 17 12 CREATININE mg/dL 0.77 0.77 0.67 MAGNESIUM mg/dL -- 1.63 -- PHOSPHORUS mg/dL -- 3.8 -- CALCIUM mg/dL 8.1* 8.5 9.0 CALCIUM ION mmol/L -- 1.11 -- CALCIUM ION 7.4 mmol/L -- 1.15 -- CALCIUM ION WB mmol/L 1.05 -- -- CALCIUM ION WB 7.4 mmol/L 1.11 -- -- ICU electrolyte replacement protocolStop IVF no robert INFECTIOUS DISEASE Temp (24hrs), Av.4 ?C (97.6 ?F), Min:36 ?C (96.8 ?F), Max:37 ?C (98.6 ?F) Results from last 7 daysLab Units 01/03/25 0157 01/02/25 1522 01/02/25 0646 WBC 10*3/uL 6.17 5.89 7.66 Monitor trend fever curve and WBCCefazolin post op HEMATOLOGIC Results from last 7 daysLab Units 01/03/25 0157 01/02/25 1522 01/02/25 0646 01/02/25 0132 HEMOGLOBIN g/dL 10.4* 11.4 11.9 -- PLATELETS 10*3/uL 148* 169* 187* -- INR -- 1.25* 1.26* 1.17* PTT Seconds -- 27.9 30.4 27.6 TEG, coags wnlARU 620 No coagulopathy on labs or per history DVT ppx: SCDs; ENDOCRINE Results from last 7 daysLab Units 01/03/25 0157 01/02/25 1522 01/02/25 0710 POC GLUCOSE mg/dL -- -- 130* GLUCOSE mg/dL 180* 158* -- BG goal [id number] ISS MUSCULOSKELETAL AND INTEGUMENTARY Skin Exam: warm, dry, intact SCDs, Heparin subcutaneous 5000 units q8h Code Status: Full Code Disposition: ICU [facility] Neurocritical Care ICU White Team ICU Ph #[phone]; White Team IMU/FloorAPP Ph #[phone] (available 03/01), #[phone] (available 6:30a - 4:30p) The patient has an illness or injury that has acutely impaired one or morevital organ systems. There is a high probability of imminent or life threatening deterioration in the patient's condition during this evaluation. This is the total time spent evaluating the patient, speaking with medical staff and family, interpreting studies, discussing the case with consultants and admitting teams, retrieving data and reviewing charts, documenting the visit, and performing bundled procedures required during patient management. TIME (IN MINUTES) SPENT40 Day MD Day OLIVIA 40 Day Total TIME (IN MINUTES) SPENTNight MD Night OLIVIA (Nghia Christine NP) Night Total 40 TOTAL OF TIME (IN MINUTES) SPENT The patient was seen and examined by me at a separate time from the OLIVIA/Fellow/resident. I also reviewed the documentation and agree with the documented findings and plan of care. Additionally, I was directly involved in the management of the patient and provided the substantive portion of this visit, including examining the patient, obtaining history, and medical decision-making. * Clyde Bautista MD - 01/03/2025 5:05 AM CDT NEUROSURGERY PROGRESS NOTE: Date: 01/03/25 Patients Name: Sarthak Shane Admit Date: 01/01/2025 Admitting Provider: Noemi Powell MD : 1945 Service: Neurosurgery Trauma Team Age/Sex: 79 y.o. female SUBJECTIVE: The patient is s/p elizabeth holes OBJECTIVE: Vitals: Vitals: 01/03/25 0100 01/03/25 0200 01/03/25 0300 01/03/25 0400 BP: 121/62 121/63 120/62 116/62 Pulse: 58 59 57 57 Resp: 15 Temp: 36.1 ?C (97 ?F) SpO2: 96% 95% 96% 95% I/O: Intake/Output Summary (Last 24 hours) at 01/03/2025 0505Last data filed at 01/03/2025 0400 Gross per 24 hour Intake 1207.92 ml Output 1500 ml Net -292.08 ml PHYSICAL EXAM: Eyes open Fcx4 Alert and oriented x3 Left pupil 3mm and brisk Right pupil 3 mm and brisk EOMI LABS/IMAGING: Labs: Hgb Date Value Ref Range Status 01/03/2025 10.4 (L) 10.8 - 14.8 g/dL Final POC A Hct (calc)Date Value Ref Range Status 01/02/2025 36.0 34.1 - 44.9 % Final HctDate Value Ref Range Status 01/03/2025 32.6 (L) 33.9 - 45.4 % Final Plt CountDate Value Ref Range Status 01/03/2025 148 (L) 191 - 422 10*3/uL Final POC A NaDate Value Ref Range Status 01/02/2025 141 135 - 145 mEq/L Final Sodium LvlDate Value Ref Range Status 01/03/2025 146 (H) 136 - 145 mEq/L Final POC A KDate Value Ref Range Status 01/02/2025 2.9 (LL) 3.5 - 5.1 mEq/L Final Potassium LvlDate Value Ref Range Status 01/03/2025 3.3 (L) 3.4 - 4.5 mEq/L Final Creatinine LvlDate Value Ref Range Status 01/03/2025 0.77 0.55 - 1.02 mg/dL Final Prothrombin Time (PT)Date Value Ref Range Status 01/02/2025 15.9 (H) 12 - 14.7 Seconds Final PTTDate Value Ref Range Status 01/02/2025 27.9 22.9 - 35.8 Seconds Final Activated Clotting Time (TEG) RapidDate Value Ref Range Status 01/02/2025 113.0 86 - 118 sec Final Radiology Imaging Reviewed: - I have personally reviewed all pertinent NSGY imaging studies and agree with the findings under "impression" ASSESSMENT AND PLAN:Active Problems: Patient Active Problem List Diagnosis SDH (subdural hematoma) (HCC) Assessment: Sarthak Shane is a 79 y.o. female with past medical history of HTN, recent infection who presents on 01/01/2025 for AMS over 3 days, signs of recent trauma. CTH shows L acute on chronic SDH measuring up to [address] C Spine without acute abnormality. CT CAP pending. Family reports that patient was confused over phone today. Neighbors report patient has been confused for at least 3 days. Family did find patient with swelling of left eye concerning for recent trauma. Patient is confused during exam but does describe headaches for unspecified period of time. Prior to this patient was independent and lives alone. Patients endorses headache. Patient denies nausea, vomiting, dizziness, or new weakness. Blood thinner use includes none. NSGY consulted for manangement of SDH. Impression (I have reviewed all pertinent neurosurgical imaging and agree with the findings below) : - Left acute on chronic SDH The patient is s/p elizabeth holes I have seen and examined the patient. The patient is neurologically unchanged with postop changes on imaging. We will continue the drain and will discuss MMA embo with vascular. We will follow the neurological exam, but no additional open neurosurgical interventions are needed at this point. I have updated the family and patient and have answered all questions. Please call [phone] with questions. Clyde Bautista, [facility] Neurosurgery * Balbina Jimenez CCC-ASSISTANT CREDIT MANAGER - 01/02/2025 4:17 PM CDT Images from the original note were not included. Speech-Language Pathology [facility] [place] ASSISTANT CREDIT MANAGER CLINICAL SWALLOWING EVALUATION (CSE) Patient Name: Sarthak Shane Today's Date: 01/02/2025 Time In: 1549 Time Out: 1557 Room: [facility] CLINICAL SWALLOW EVALUATION SUMMARY: Oral and pharyngeal swallow appear WFL. RECOMMENDATIONS: Regular consistency diet (level 7) with thin liquids (level 0) Medications: Whole with drink Supervision Recommended: None Oral care: Regular toothbrush Speech Language Cognitive Evaluation Need for post acute ST services pending results of Speech Language Cognitive Evaluation PROGNOSIS: Good PLAN: Treatment/Interventions: Other (Comment) (Speech Language Cognitive Evaluation) Frequency: Other (comment) (pending results of Speech Language Cognitive Evaluation) Duration: pending results of Speech Language Cognitive Evaluation GENERAL INFORMATION: Reason for Consult: Pt was referred for a clinical swallow evaluation in the setting of L acute on chronic SDH, s/p elizabeth holes. Oxygenation: Room air Behavior:Cooperative Level of Consciousness: Awake & alert Pain: Pain Assessment: Pickard-Jimenez FACES Pickard-Jimenez FACES Pain Rating: No hurt Diet Prior to this Evaluation: Level 0- Thin Liquids and Level 7- Regular diet Preferred Language: Barbadian Pt's son at b/s reports pt recently took pills with water with no s/s aspiration. ORAL MOTOR EXAM: Dentition: Adequate Face: Within Functional Limits Jaw: Within Functional Limits Lips: Within Functional Limits Tongue: Within Functional Limits Soft Palate: Within Functional Limits SWALLOW ASSESSMENT: Consistencies Assessed Consistencies Assessed: Yes Swallowing Overview - Liquids 0 - Thin Liquid: WFL Swallowing Overview - Solids 4 - Pureed: WFL Pt verbalized refusal for cracker (regular consistency - level 7) trial. Clinical Swallow Evaluation Patient Positioning: Mostly upright, In bed Previous History of Dysphagia?: No Inability to Follow One Step Directions?: No Tracheostomy Present: No Inability to Manage Their Secretions?: No Incomplete Lingual ROM?: No Incomplete Facial Symmetry (Facial Droop)?: No Voice Change During Swallowing Trials?: No Abnormal/Weak Volitional Cough?: No Cough/Throat Clear w/ Trial Consistency?: No Dysphonia (Quality and/or Pitch Change)?: No Motor Speech Disorder (Dysarthria/Apraxia)?: No Apraxia of the Swallow Suspected?: No Delayed Swallow Suspected?: No Multiple Swallows Per Bolus Suspected?: No Tongue Pumping Suspected?: No OUTCOME MEASURES: International Dysphagia Diet Standardization Initiative - IDDSI Solids - 7 - Regular Liquids - 0 - Thin IDDSI Level - 8 GOALS: Encounter Goals Encounter Goals (Active) LTG - Patient will participate in ongoing diagnostic assessments to determine plan of care Start: 01/02/25 Expected End: 01/30/25 STG - Patient will participate in ongoing diagnostic assessments to determine plan of care Start: 01/02/25 Expected End: 01/16/25 EDUCATION:Education Documentation Dietary Recommendations, taught by DONALD Casiano at 01/02/2025 3:57 PM. Learner: Family, Patient Readiness: Eager Method: Explanation Response: Verbalizes Understanding Results of Exam, taught by DONALD Casiano at 01/02/2025 3:57 PM.Learner: Family, Patient Readiness: Eager Method: Explanation Response: Verbalizes Understanding Education CommentsNo comments found. Spoke with LEO Duncan on unit re: evaluation results and recs. If this is the last documented treatment, then it will signify discharge from acute care prior to discharge from the therapy service and will serve as the discharge summary. Therapy discharge recommendations are made by determining the patient's prior level of function, assessing current function level and establishing rehab potential. The overall discharge plan may be affected by input from Physicians, Care Coordination, medical condition/status, family support and insurance benefits. DONALD Casiano * Nick Guadarrama MD - 01/02/2025 8:10 AM CDT NEUROSURGERY POST OP CHECK Date: 01/02/25 Patients Name: Sarthak Shane : 1945 Age/Sex: 79 y.o. female Admit Date: 01/01/2025 Admitting Provider: Noemi Powell MD Service: Neurosurgery Trauma Team Pain and Nausea Control: yes Hemodynamic Stability: yes Dressing: Clean, Dry and Intact Post op Fluid Balance: Euvolemic Neurological Examination: Preexisting or expected deficit Remarks: Patient waking up from anesthesia in PACU, [id number] AOx3 mild confusion, following commands in all extremities no drift I have communicated with ICU: yes I have communicated with Primary Attending: yes Nick Guadarrama MD * Clyde Bautista MD - 01/02/2025 6:52 AM CDT NEUROSURGERY PROGRESS NOTE: Date: 01/02/25 Patients Name: Sarthak Shane Admit Date: 01/01/2025 Admitting Provider: Noemi Powell MD : 1945 Service: Neurosurgery Trauma Team Age/Sex: 79 y.o. female SUBJECTIVE: The patient is s/p elizabeth holes OBJECTIVE: Vitals: Vitals: 01/02/25 0637 01/02/25 0640 01/02/25 0645 01/02/25 0646 BP: 152/72 149/74 152/72 Pulse: 98 97 99 Resp: (!) 35 (!) 32 14 Temp: 36.5 ?C (97.7 ?F) 36.1 ?C (97 ?F) SpO2: 99% 99% 99% I/O: Intake/Output Summary (Last 24 hours) at 01/02/2025 0653Last data filed at 01/02/2025 0627 Gross per 24 hour Intake 1000 ml Output 650 ml Net 350 ml PHYSICAL EXAM: Eyes open Fcx4 Alert and oriented x2 Left pupil 3mm and brisk Right pupil 3 mm and brisk EOMI LABS/IMAGING: Labs: Hgb Date Value Ref Range Status 01/01/2025 13.0 10.8 - 14.8 g/dL Final POC A Hct (calc)Date Value Ref Range Status 01/02/2025 36.0 34.1 - 44.9 % Final Plt CountDate Value Ref Range Status 01/01/2025 155 (L) 191 - 422 10*3/uL Final POC A NaDate Value Ref Range Status 01/02/2025 141 135 - 145 mEq/L Final Sodium LvlDate Value Ref Range Status 01/02/2025 147 (H) 136 - 145 mEq/L Final POC A KDate Value Ref Range Status 01/02/2025 2.9 (LL) 3.5 - 5.1 mEq/L Final Potassium LvlDate Value Ref Range Status 01/02/2025 3.0 (LL) 3.4 - 4.5 mEq/L Final Creatinine LvlDate Value Ref Range Status 01/02/2025 0.70 0.55 - 1.02 mg/dL Final Prothrombin Time (PT)Date Value Ref Range Status 01/02/2025 15.1 (H) 12 - 14.7 Seconds Final PTTDate Value Ref Range Status 01/02/2025 27.6 22.9 - 35.8 Seconds Final Activated Clotting Time (TEG) RapidDate Value Ref Range Status 01/01/2025 97 86 - 118 sec Final Radiology Imaging Reviewed: - I have personally reviewed all pertinent NSGY imaging studies and agree with the findings under "impression" ASSESSMENT AND PLAN:Active Problems: Patient Active Problem List Diagnosis SDH (subdural hematoma) (HCC) Assessment: Sarthak Shane is a 79 y.o. female with past medical history of HTN, recent infection who presents on 01/01/2025 for AMS over 3 days, signs of recent trauma. CTH shows L acute on chronic SDH measuring up to [address] C Spine without acute abnormality. CT CAP pending. Family reports that patient was confused over phone today. Neighbors report patient has been confused for at least 3 days. Family did find patient with swelling of left eye concerning for recent trauma. Patient is confused during exam but does describe headaches for unspecified period of time. Prior to this patient was independent and lives alone. Patients endorses headache. Patient denies nausea, vomiting, dizziness, or new weakness. Blood thinner use includes none. NSGY consulted for manangement of SDH. Impression (I have reviewed all pertinent neurosurgical imaging and agree with the findings below) : - Left acute on chronic SDH The patient is s/p elizabeth holes I have seen and examined the patient. The patient is neurologically unchanged with postop imaging pending. We will discuss MMA embo with neurovascular. We will continue to monitor the neurological exam. I have updated all present on the neurological condition and have answered all questions. Please call [phone] with questions. Clyde Bautista [facility] Neurosurgery [facility]2025-07-26 17:57:36Scheduled Orders Scheduled Referrals Name Type Priority Associated Diagnoses Order Schedule Ambulatory referral to Home Health Outpatient Referral Routine SDH (subdural hematoma) (HCC) Expected: 01/05/2025 (Approximate), Expires: 01/05/2026 Health Maintenance Due Date Last Done Comments Bone Density Scan 1945 Diabetes: Hemoglobin A1C 1945 Lipid Panel 1945 Medicare Annual Wellness (AWV) 1945 Diabetes: Foot Exam 02/05/1956 Diabetes: Retinopathy Screening 02/05/1956 DTaP/Tdap/Td Vaccines (1 - Tdap) 1965 Diabetes: Urine Protein Screening 1965 Pneumococcal Vaccine: 50+ Years (1 of 1 - PCV) 02/05/1996 Zoster Vaccines (1 of 2) 02/05/1996 Respiratory Syncytial Virus (RSV) Adult Series (1 - 1-dose 75+ series) 2021 Influenza Vaccine (#1) 2025 3, 04/12/2022 HIB Vaccines Aged Out No longer eligi ble based on patient's age to complete this topic HPV Vaccines Aged Out No longer eligi ble based on patient's age to complete this topic Hepatitis A Vaccines Aged Out No long er eligible based on patient's age to complete this topic Hepatitis B Vaccines Aged Out No long er eligible based on patient's age to complete this topic IPV Vaccines Aged Out No longer eligi ble based on patient's age to complete this topic Meningococcal Vaccine Aged Out No rachana belle eligible based on patient's age to complete this topic Rotavirus Vaccines Aged Out No longer eligible based on patient's age to complete this topic [id number] 17:57:36 [place] [id number] 17:57:36 Diagnosis SDH (subdural hematoma) (HCC) - Primary Subdural hemorrhage SDH (subdural hematoma) (HCC) Subdural hemorrhage Moderate malnutrition (CMS/H CC) (HCC) Pressure ulcer of left butto ck, unstageable (HCC) [id number] 17:57:36 [place] [id number] 17:51:20 Pt educated on discharge paperwork, follow up appointments, and medications. Pt confirmed change in pharmacy since main pharmacy isn't open on weekends. Pt and satisfied and compliant with discharge. IV's removed. [id number] 16:41:18 Images from the original note were not included. [id number] What Is a Subdural Hematoma? A subdural hematoma is a buildup of blood in a space between the layers of tissue that surround your brain. Your brain sits inside your bony skull. Inside your skull are several layers, called the meninges. These layers cover and protect the brain. The layer just inside the skull is called the dura mater, or dura. It's a tough, fibrous layer of tissue. On the inside of the dura is a layer called the arachnoid. When blood builds up between these layers, it can cause severe problems. A subdural hematoma is a medical emergency. Call 911 This condition is a medical emergency. Call 911 if you have the symptoms listed below. What causes a subdural hematoma? The most common cause is a head injury. This may be from a fall, a car crash, a sports injury, or a violent attack. The sudden impact can damage the blood vessels inside the dura. This causes them to rip and bleed. Small arteries may break in the subdural space. In some people, the brain shrinks. This is often from aging. The subdural space gets bigger. This can make the blood vessels more likely to break. Another cause is taking medicine to prevent blood clots. These include warfarin, aspirin, and other blood thinners. Rare causes include leaking of cerebrospinal fluid, a tumor, or rupture of a weak part of a blood vessel (cerebral aneurysm). Symptoms of a subdural hematoma It may cause symptoms right away. Or it may grow slowly and cause symptoms weeks later. Symptoms may include: ? A headache. ? Nausea or vomiting. ? Loss of consciousness. ? Confusion. ? Dizziness. ? Balance or walking problems. ? Speech problems. ? Vision problems. ? Sleepiness. ? Weakness or numbness that may come and go. ? Seizures. Treating a subdural hematoma The most common treatment is surgery. This helps to relieve the pressure on the brain. There are two surgeries used to treat hematomas. The surgeon can: ? Drill a hole in the skull to allow the blood to drain (elizabeth hole). ? Cut a flap of skull open to remove the blood (craniotomy). If the subdural hematoma is small, your doctor may not do surgery right away. Instead, they may closely watch it. In this case, you will likely stay in the hospital. You may: ? Have repeated CT scans to watch the hematoma. ? Have a tube (catheter) inserted in your head to measure your intracranial pressure. ? Take medicines to control symptoms. ? Need to stop blood-thinner medicine. ? Get vitamin K therapy to reverse the effects of some blood-thinner medicines. Last Reviewed Date: 2024 00:00:00 ? [id number] [employer]. All rights reserved. This information is not intended as a substitute for professional medical care. Always follow your healthcare professional's instructions. [facility]2025-07-26 15:39:32 The patient is Moderately Stable - Low risk of patient condition declining or worsening The patient's goals for the shift include The clinical goals for the shift include Over the shift, the patient did not make progress toward the following goals. Barriers to progression include pt needs to urinate. Recommendations to address these barriers include ambulation and oral fluids. [facility]2025-07-26 04:39:01 Problem: Pain - Adult Goal: Verbalizes/displays adequate comfort level or baseline comfort level Outcome: Progressing Problem: Safety - Adult Goal: Free from fall injury Outcome: Progressing Problem: Discharge Planning Goal: Discharge to home or other facility with appropriate resources Outcome: Progressing Problem: Chronic Conditions and Co-morbidities Goal: Patient's chronic conditions and co-morbidity symptoms are monitored and maintained or improved Outcome: Progressing [facility]2025-07-25 04:51:21 Problem: Pain - Adult Goal: Verbalizes/displays adequate comfort level or baseline comfort level Outcome: Progressing Problem: Safety - Adult Goal: Free from fall injury Outcome: Progressing Problem: Discharge Planning Goal: Discharge to home or other facility with appropriate resources Outcome: Progressing Problem: Chronic Conditions and Co-morbidities Goal: Patient's chronic conditions and co-morbidity symptoms are monitored and maintained or improved Outcome: Progressing [facility]2025-07-24 13:00:19 The patient is Moderately Stable - Low risk of patient condition declining or worsening The patient's goals for the shift include pain less than 5 The clinical goals for the shift include pain management [facility]2025-07-24 02:52:43 The patient is Moderately Unstable - Medium risk of patient condition declining or worsening The patient's goals for the shift include The clinical goals for the shift include Problem: Pain - Adult Goal: Verbalizes/displays adequate comfort level or baseline comfort level Outcome: Progressing Problem: Safety - Adult Goal: Free from fall injury Outcome: Progressing [facility]2025-07-23 14:57:05 Problem: Pain - Adult Goal: Verbalizes/displays adequate comfort level or baseline comfort level Outcome: Ongoing Problem: Safety - Adult Goal: Free from fall injury Outcome: Ongoing Problem: Discharge Planning Goal: Discharge to home or other facility with appropriate resources Outcome: Ongoing Problem: Chronic Conditions and Co-morbidities Goal: Patient's chronic conditions and co-morbidity symptoms are monitored and maintained or improved Outcome: [facility]ngoing [id number] History of Present Illness: Chief Complaint: Patient presents with Fall Headache 79 y/o F with PMHx of HTN, DM who presented to the ED as a transfer from [facility] for a L SDH with MLS. Reported to have been found by son on the ground altered. The patient was unable to say she fell or how she was found on the ground. Knows she has brain bleeding. Notes L shoulder pain but denies any other complaints. Denies blood thinners including ASA. Cardene was started at OSH but off by the time of coming to [facility] [place]. Patient History Past Medical History: Diagnosis Date Diabetes mellitus (HCC) Hypertension No past surgical history on file. No family history on file. Social History: Tobacco Use Smoking status: Not on file Smokeless tobacco: Not on file Substance Use Topics Alcohol use: Not on file Drug use: Not on file Review of Systems: Review of Systems Constitutional: Negative for chills and fever. HENT: Negative for ear pain and sore throat. Respiratory: Negative for cough and shortness of breath. Cardiovascular: Negative for chest pain and palpitations. Gastrointestinal: Negative for abdominal pain, diarrhea, nausea and vomiting. Genitourinary: Negative for dysuria and hematuria. Musculoskeletal: Negative for back pain and neck pain. Skin: Negative for color change and rash. Neurological: Positive for numbness and headaches. Negative for syncope. All other systems reviewed and are negative. Physical Exam: Vitals and nursing note reviewed. Constitutional: General: She is not in acute distress. Appearance: She is well-developed. HENT: Head: Normocephalic and atraumatic. Mouth/Throat: Mouth: Mucous membranes are moist. Eyes: Extraocular Movements: Extraocular movements intact. Cardiovascular: Rate and Rhythm: Normal rate and regular rhythm. Pulmonary: Effort: Pulmonary effort is normal. No respiratory distress. Breath sounds: Normal breath sounds. Abdominal: General: Abdomen is flat. Palpations: Abdomen is soft. Tenderness: There is no abdominal tenderness. Musculoskeletal: General: No swelling or deformity. Cervical back: Neck supple. Skin: General: Skin is warm and dry. Capillary Refill: Capillary refill takes less than 2 seconds. Neurological: Mental Status: She is alert. Comments: Confused, oriented to name and situation. LUE/LLE subjective dec sensation to light touch (more than her normal neuropathy). 5/5 BUE/BLE strength. Tongue midline protrusion no facial droop or dysarthria. Triage Vitals: BP: (!) 134/93, Heart Rate: 89, Temp: 36.4 ?C (97.5 ?F), Resp: (!) 11, SpO2: 95 % Last Recorded Vitals: BP: (!) 161/82, Heart Rate: 67, Temp: 36.4 ?C (97.5 ?F), Resp: (!) 28, SpO2: 94 % Procedures Performed: Procedures ED Course : ED Course: as of 01/02/25 0138 TueJan 01, [address] disk from OSH cracked, will repeat images [AG] 2319 NSGY will see [AG] TueJan 02, 2025 0022 NSGY will admit [AG] ED Course: User Index [AG] Miguel Herrera MD Diagnoses as of 01/02/25 0138 SDH (subdural hematoma) (HCC) Disposition: Admit/Observation Medical Decision Making Amount and/or Complexity of Data Reviewed Labs: ordered. Radiology: ordered. ECG/medicine tests: ordered. Risk OTC drugs. Prescription drug management. Scoring Tools EC MDM Ddx: ICH, ACS, syncope, fracture/dislocation Sarthak Shane is 79 y.o. female with PMHx of HTN, DM who presented to the ED due to transfer from OSH due to a L SDH with MLS 1.4cm. Reportedly found on the ground by son. She reports headache but denies falling. She is mildly confused on exam. Subjective worsening L sided numbness/tingling to light touch but otherwise no gross focal neuro deficits. No obvious signs of trauma. Not on blood thinners reportedly. CT disk from OSH broken on transport. Will repeat a CTH and C spine will also complete traumatic work up with CT CAP. Will get trauma labs and EKG. EKG consistent with cerebral TWI likely from her SDH. Lactate, negative. No acidosis. Troponin negative. Labs otherwise grossly unremarkable. Not having CP or SOB. Lower concern for ACS. Possible syncope versus trauma leading to her SDH. Cardene restarted given her BP with SBP goal < 160. Will also give 1g Keppra for ppx. NSGY consulted who admitted to their service for craniotomy and evacuation tomorrow. CT CAP without acute traumatic injuries. Labs, Imaging, Orders Labs Reviewed BASIC METABOLIC PANEL - Abnormal Result Value Glucose Lvl 92 BUN 11 Creatinine Lvl 0.77 Sodium Lvl 144 Potassium Lvl 3.1 (*) Chloride Lvl 111 (*) CO2 Lvl 22.9 Anion Gap 13.2 Calcium Lvl 9.7 eGFR 79 BLOOD GAS, VENOUS - Abnormal Temp Dandy 37.0 pH Dandy 7.42 PCO2 Dandy 41 PO2 Dandy 38 HCO3 Dandy 26.6 (*) BE Dandy 2 O2 Sat Dandy 73.4 (*) COMPLETE BLOOD COUNT - Abnormal WBC 5.77 RBC 4.18 NRBC % 0.0 Hgb 13.0 Hct 38.3 MCV 91.6 MCH 31.1 MCHC 33.9 RDW - SD 49.4 (*) Plt Count 155 (*) MPV 9.0 HEPATIC FUNCTION PANEL - Abnormal Protein 7.0 Albumin Lvl 3.3 (*) Bilirubin Total 1.30 (*) Bilirubin Direct 0.5 (*) Bilirubin Indirect 0.8 Alkaline Phosphatase 87 AST 33 ALT 17 Globulin, Calc 3.7 Albumin/Globulin Ratio 0.89 LACTIC ACID WITH 2 HOUR REFLEX - Normal Lactic Acid Lvl 1.77 CREATINE KINASE (CK TOTAL) - Normal CK Total 39 AUTOMATED DIFFERENTIAL - Normal Segs % 60.3 Lymphs % 27.6 Monos % 7.8 Eos % 3.1 Basos % 0.9 Immature Grans % 0.3 Segs # 3.48 Lymphs # 1.59 Monos # 0.45 Eos # 0.18 Basos # 0.05 Imm Grans # 0.02 TROPONIN I HIGH SENSITIVITY CARESET (BASELINE) - Normal HS Troponin I Baseline 7 ETHANOL LEVEL Ethanol Lvl <5.0 Ethanol % <0.005 COMPLETE BLOOD COUNT W/DIFF AND PLATELET Narrative: The following orders were created for panel order Complete Blood Count w/Diff and Platelet. Procedure Abnormality Status --------- ------ Complete Blood Count[[id number]] Abnormal Final result Automated Differential[[id number]] Normal Final result Please view results for these tests on the individual orders. THROMBOELASTOGRAPH RAPID Activated Clotting Time (TEG) Rapid 97 Split Point Rapid 0.4 R-time Rapid 0.5 K-time Rapid 0.8 Angle Rapid 80 Max Amplitude Rapid 69 G-value Rapid 11.2 Estimated % Lysis Rapid 1.0 UA WITH MICROSCOPIC NO CULTURE DRUG SCREEN URINE (8 DRUGS) TYPE AND SCREEN PT AND PTT TROPONIN I HIGH SENSITIVITY CARESET Narrative: The following orders were created for panel order Troponin I High Sensitivity Careset. Procedure Abnormality Status --------- ------ Troponin I High Sensitiv...[[id number]] Normal Final result Troponin I High Sensitiv...[[id number]] Please view results for these tests on the individual orders. TROPONIN I HIGH SENSITIVITY CARESET (1ST HR) ASPIRIN EFFECT PLATELET PT AND PTT POCT GLUCOSE METER POCT GLUCOSE METER POCT GLUCOSE METER Medications sodium chloride (NS) 0.9 % flush 10 mL (has no administration in time range) acetaminophen (Tylenol) tablet 1,000 mg (has no administration in time range) niCARdipine (Cardene) 40 mg/200 mL NS (0.2 mg/mL) premix - Pyxis Override Pull (has no administration in time range) sodium chloride (NS) 0.9 % flush 10 mL (10 mL Intravenous Given 01/02/25 0040) sodium chloride (NS) 0.9 % flush 10 mL (has no administration in time range) sodium chloride 0.9 % infusion 250 mL (has no administration in time range) labetalol injection 10 mg (has no administration in time range) levETIRAcetam (Keppra) injection 500 mg (has no administration in time range) ondansetron (Zofran) injection 4 mg (has no administration in time range) sennosides (Senokot) tablet 8.6 mg (has no administration in time range) bisacodyl (Dulcolax) suppository 10 mg (has no administration in time range) dextrose 50 % solution 12.5 g (has no administration in time range) dextrose 50 % solution 25 g (has no administration in time range) glucagon injection 1 mg (has no administration in time range) acetaminophen (Tylenol) tablet 650 mg (has no administration in time range) sodium chloride 0.9 % infusion (has no administration in time range) insulin lispro (HumaLOG, Admelog) injection 2-8 Units (has no administration in time range) iohexol (OMNIPaque) 350 MG/ML injection 100 mL (100 mL Intravenous Given 01/01/25 2310) levETIRAcetam (Keppra) injection 1,000 mg (1,000 mg Intravenous Given 01/01/25 2320) Trauma CT BRAIN WO IV CONTRAST Trauma CT CERVICAL SPINE WO IV CONTRAST Final Result XR shoulder 2+ views left Final Result Trauma CT CHEST ABDOMEN PELVIS W IV CONTRAST (Results Pending) Transthoracic echo (TTE) complete (Results Pending) CT BRAIN WO IV CONTRAST (Results Pending) EC MDM LOS Details MEDICAL DECISION MAKING Complexity of Problems Addressed High: I am concerned about a severe complexity problem which was evidenced by the differential, and associated workup to rule out the severe problem: ICH, which is a/n Acute problem for this patient as evidenced by acute presentation and associated history and physical. Complexity of Data Review Category 1: Category 2: Category 3: Risk of Management (Admission) Patient to be admitted to the hospital. Clinical Impression Dx: Final diagnoses: [S06.5XAA] SDH (subdural hematoma) (HCC) Prescriptions New Prescriptions No medications on file Disposition: Admit/Observation This patient was seen and evaluated by me: Miguel Herrera MD Emergency Medicine, PGY-3 [facility] Miguel Herrera MD Resident 01/02/25 0227 Cosigned by Willie Hernandez MD at 01/05/2025 12:58 AM CDT Associated attestation - Willie Hernandez MD - 01/05/2025 12:58 AM CDT Teaching Attending Attestation: The patient was seen and examined by me in the presence of, or jointly with, the resident, and I agree with the History/Exam/Medical Decision Making documented unless further documented below. Additionally, I was directly involved in the management of the patient. Impression: 1. SDH (subdural hematoma) (HCC) Willie Hernandez MD CRITICAL CARE NOTE I examined the patient: Sarthak Shane, who at that time was critically ill and had a high probability of sudden significant deterioration in her condition as evident by CRITICALCAREPRESENTATION: blunt head trauma and required my constant medical attention and the highest level of preparedness to intervene urgently. I provided 35 minutes of aggregated critical care services to this patient while she was in critical condition including: direct patient care, documentation time, discussion with consultants, discussion with family members, IV drip management, review of imaging studies, and review of laboratory results. The reported time excludes time spent on separately reportable procedures. Willie Hernandez MD January 05, 2025 12:57 AM [facility]
[2025-01-21 15:49] LABS: Absolute Lymphocytes (CBC) 1.2 K/uL (0.7-4.9); Hematocrit 31.1 % (36.0-45.0); Hemoglobin 11.0 g/dL (12.0-15.0); MCH 31.7 pg (27.0-35.0); MCHC 35.2 g/dL (32.0-36.0); MCV 90.0 fL (80-100); MPV 6.8 fL (7.6-11.3); Nucleated RBC Absolute Count 0.0 (0-0); Nucleated Red Blood Cells % 0.0 % (0-0); RBC Red Blood Cell Count 3.46 M/uL (3.86-4.86); White Blood Count 4.80 thou/uL (4.3-10.9)
[2025-01-21 16:02] LABS: Anion Gap 8.0 mEq/L (5.0-15.0); BUN Blood Urea Nitrogen 14.0 mg/dL (7-18); Glucose Level 124.0 mg/dL (74-106); Potassium 3.0 mEq/L (3.5-5.1)
[2025-01-21] MEDS ORDERED: POTASSIUM 25 MEQ EFFERV TAB ONE (16:18)
--- NOTE | 2025-01-21 16:32 | RAD REPORT ---
EXAMINATION: Head C Spine Mpr Wo Con CLINICAL INDICATION: Female, 79 years old. Swelling;Trauma TECHNIQUE: Axial CT images from the skull base to the vertex without intravenous contrast. Axial CT i mages through the cervical spine were obtained without intravenous contrast. Sagittal and coronal reformatted images were created from the data set. Coronal and sagittal reformatted images were creat ed from the data set. One or more of the following dose reduction techniques were used: Automated exposure control, adjustment of the mA and/or kV according to patient size, and/or iterative reconstr uction. Unless otherwise specified, incidental findings do not require dedicated imaging follow-up. [id number]. COMPARISON: 01/01/2025 FINDINGS: Head: INTRACRANIAL: Previously noted left-sided subdural hematoma has nearly completely resolved following juli hole placement. The residual measures approximately 2 mm in thickness.. No acute large vascular territory infarct. No hydrocephalus. No mass effect or midline shift. Moderate chronic smal l vessel ischemic changes.Moderate cerebral atrophy. VASCULATURE: No visualized abnormalities in the arteries or dural venous sinuses. SCALP/SKULL: No calvarial fracture identified. No acute soft tissue abnormality. SINUSES: The visualized paranasal sinuses are mostly clear. No significant mastoid fluid. Cervical spine: ALIGNMENT: The cervical spine has normal alignment without scoliosis or spondylolisthesis. BONE: Vertebral body heights are maintained. No aggressive osseous lesions. DEGENERATIVE: Multilevel cervical spondylosis with evidence of bilateral neural foraminal narrowing. No high grade central spinal stenosis. SOFT TISSUE: No significant abnormalities in the soft tissue of the neck. The visualized lung apices are clear. IMPRESSION: No acute intracranial abnormality. Nearly completely resolved left sided subdural hematoma. No acute fracture or traumatic malalignment of the cervical spine.
[2025-01-21 17:18] LABS: Sqamous Epithelial <5 /HPF (None Seen); Urine Crystals Unidentified Few /HPF (None Seen); Urine Culture Reflex Order NOT NEEDED; Urine Microscopic Reflex YN ORDER UMIC; Urine WBC Clump Rare /HPF (None Seen); Urine Yeast (Budding) Few /HPF (None Seen)
--- NOTE | 2025-01-21 17:24 | EDPHYS ---
Physician Documentation [facility] Name: Lala Wall Age: 79 yrs Sex: Female : 1945 Arrival Date: 01/21/2025 Time: 14:20 Bed 25 Private MD: ED Physician Carlos Grimes HPI: 01/21 17:24 This 79 yrs old Female presents to ER via Ambulatory with complaints of Fall Injury - kb HEAD. 15:04 Patient is a 79-year-old female who presents for fall from the bed that occurred last kb night. Hematoma to right side of forehead and eye. Patient denies LOC. States she feels okay now. States she is not sure what made her fall. Patient recently had a subdural, was later flighted to [place] and had surgery on the left side of her head. No neurodeficits.. Historical: - Allergies: 15:12 No Known Allergies; ll1 - PMHx: 15:12 Chronic pain; Hypertension; Diabetes - NIDDM; ll1 - PSHx: 15:12 back surgery (en); ll1 - Immunization history:: Adult Immunizations up to date. - Social history:: Smoking status: Patient reports the use of cigarette tobacco products, smokes one-half pack cigarettes per day. ROS: 15:04 Constitutional: As per HPI kb Exam: 15:04 Constitutional: This is a well developed, well nourished patient who is awake, alert, kb and in no acute distress. Eyes: Pupils equal round and reactive to light, extra-ocular motions intact. Lids and lashes normal. Conjunctiva and sclera are non-icteric and not injected. Cornea within normal limits. Periorbital areas with no swelling, redness, or edema. ENT: Moist Mucous membranes Cardiovascular: Regular rate Respiratory: Respirations even and unlabored. No increased work of breathing. Talking in full sentences Skin: Warm, dry with normal turgor. Normal color. MS/ Extremity: Pulses equal, no cyanosis. Neurovascular intact. Full, normal range of motion. Neuro: Awake and alert, GCS 15, oriented to person, place, time, and situation. 15:04 Head/face: Noted is no obvious of injury or deformity except ecchymosis, hematoma, that is moderate, of the right eye and right side of forehead, swelling, Vital Signs: 15:20 BP 172 / 77; Pulse 68; Resp 16; Temp 98.5; Pulse Ox 99% ; Weight 55.79 kg; Height 5 ft. ll1 6 in. ; Pain 0/10; 16:12 BP 168 / 77; Pulse 61; Resp 16; Pulse Ox 98% on R/A; ll1 17:00 BP 171 / 79; Pulse 67; Resp 16; Pulse Ox 98% on R/A; jb4 17:45 BP 146 / 81; Pulse 65; Resp 16; Pulse Ox 99% on R/A; jb4 15:20 Body Mass Index 19.85 (55.79 kg, 167.64 cm) ll1 15:20 Pain Scale: Adult ll1 MDM: 15:00 Medical Screening Exam initiated kb 15:05 Differential diagnosis: closed head injury, contusion, Hematoma, fracture, abnormal kb electrolytes, UTI. Data reviewed: vital signs, nurses notes. Historians other than the Patient: Family Member: Family. 17:19 Counseling: I had a detailed discussion with the patient and/or guardian regarding the kb historical points, exam findings, and any diagnostic results supporting the discharge/admit diagnosis, lab results, radiology results, the need for outpatient follow up, a family practitioner, to return to the emergency department if symptoms worsen or persist or if there are any questions or concerns that arise at home. 01/21 15:04 Order name: CBC with Diff; Complete Time: 15:54 kb 01/21 15:04 Order name: BMP; Complete Time: 16:11 kb 01/21 15:04 Order name: UA Rfx Brady Cult if indicated; Complete Time: 17:19 kb 01/21 15:04 Order name: CT Head C Spine; Complete Time: 16:33 kb 01/21 15:04 Order name: IV Start; Complete Time: 15:40 kb Administered Medications: 16:28 Drug: Potassium PO Effervescent Tablet 50 mEq PO once; dissolve in 4 ounces of water or ll1 juice Route: PO; 18:07 Follow up: Response: No adverse reaction jb4 Disposition Summary: 01/21/25 17:24 Discharge Ordered Notes: Location: Home kb Condition: Stable kb Diagnosis - Fall from bed, initial encounter kb - Unspecified injury of head, initial encounter - hematoma to right forehead/eye kb - Hypokalemia kb Followup: kb - With: Emergency Department - When: As needed - Reason: Worsening of condition Followup: kb - With: Private Physician - When: 2 - 3 days - Reason: Recheck today's complaints, Continuance of care, Re-evaluation by your physician Discharge Instructions: - Discharge Summary Sheet kb - Hematoma, [id number] kb - Head Injury, Adult, [id number] kb Forms: - Medication Reconciliation Form kb - Antibiotic Education kb - Prescription Opioid Use kb - Patient Portal Instructions kb - Leadership Thank You Letter kb Addendum: 01/24/2025 14:36 Co-signature as Attending Physician, Carlos Grimes MD I agree with the assessment and c chahal plan of care. Signatures: Dispatcher [employer] EDMS Aditi Andrade, GRAPHIC PRE PRESS TRADES WORKER-C GRAPHIC PRE PRESS TRADES WORKER-Carlos Stephens MD MD cha Lewis, Lynsay, RN RN ll1 Get Landon RN jb4
--- NOTE | 2025-01-21 17:24 | ER ---
Nurse's Notes [facility] Name: Lala Wall Age: 79 yrs Sex: Female : 1945 Arrival Date: 01/21/2025 Time: 14:20 Bed 25 Private MD: Diagnosis: Fall from bed, initial encounter;Unspecified injury of head, initial encounter-hematoma to right forehead/eye;Hypokalemia Presentation: 01/21 15:20 Chief complaint: Patient states: Fell last night and hit her head. Subdural 2 weeks ago ll1 so they were told to come get checked out if she had any head trauma. R eye bruising noted. Coronavirus screen: Client denies travel out of the [place] in the last 14 days. At this time, the client does not indicate any symptoms associated with coronavirus-19. Ebola Screen: Patient denies travel to an Ebola-affected area in the 21 days before illness onset. Initial Sepsis Screen: Does the patient meet any 2 criteria? No. Patient's initial sepsis screen is negative. Does the patient have a suspected source of infection? No. Patient's initial sepsis screen is negative. Risk Assessment: Do you want to hurt yourself or someone else? Patient reports no desire to harm self or others. Onset of symptoms was January 20, 2025. 15:20 Method Of Arrival: Ambulatory ll1 15:20 Acuity: RENZO 3 ll1 Historical: - Allergies: 15:12 No Known Allergies; ll1 - PMHx: 15:12 Chronic pain; Hypertension; Diabetes - NIDDM; ll1 - PSHx: 15:12 back surgery (en); ll1 - Immunization history:: Adult Immunizations up to date. - Social history:: Smoking status: Patient reports the use of cigarette tobacco products, smokes one-half pack cigarettes per day. Screenin:45 [facility] ED Fall Risk Assessment (Adult) History of falling in the last 3 months, jb4 including since admission Yes- single mechanical fall (1 pt) Confusion or Disorientation No (0 pts) Intoxicated or Sedated No (0 pts) Impaired Gait No (0 pts) Mobility Assist Device Used No (0 pt) Altered Elimination No (0 pt) Score/Fall Risk Level 0 - 2 = Low Risk Oriented to surroundings, Maintained a safe environment. Abuse screen: Denies threats or abuse. Nutritional screening: No deficits noted. Tuberculosis screening: No symptoms or risk factors identified. Assessment: 16:12 General: Appears in no apparent distress. comfortable, Behavior is calm, cooperative, jb4 appropriate for age. Pain: Denies pain. Neuro: Level of Consciousness is awake, alert, obeys commands, Oriented to person, place, time, situation. Cardiovascular: Patient's skin is warm and dry. Respiratory: Airway is patent Respiratory effort is even, unlabored, Respiratory pattern is regular, symmetrical. Derm: Skin is intact, Skin is pink, warm \T\ dry. Musculoskeletal: Circulation, motion, and sensation intact. Range of motion: intact in all extremities. 17:00 Reassessment: Patient appears in no apparent distress at this time. Patient and/or jb4 family updated on plan of care and expected duration. Pain level reassessed. Patient is alert, oriented x 3, equal unlabored respirations, skin warm/dry/pink. 18:03 Reassessment: Patient appears in no apparent distress at this time. Patient and/or jb4 family updated on plan of care and expected duration. Pain level reassessed. Patient is alert, oriented x 3, equal unlabored respirations, skin warm/dry/pink. Vital Signs: 15:20 BP 172 / 77; Pulse 68; Resp 16; Temp 98.5; Pulse Ox 99% ; Weight 55.79 kg; Height 5 ft. ll1 6 in. ; Pain 0/10; 16:12 BP 168 / 77; Pulse 61; Resp 16; Pulse Ox 98% on R/A; ll1 17:00 BP 171 / 79; Pulse 67; Resp 16; Pulse Ox 98% on R/A; jb4 17:45 BP 146 / 81; Pulse 65; Resp 16; Pulse Ox 99% on R/A; jb4 15:20 Body Mass Index 19.85 (55.79 kg, 167.64 cm) ll1 15:20 Pain Scale: Adult ll1 ED Course: 14:25 Patient arrived in ED. cj3 14:33 Aditi Andrade FNP-C [facility]. kb 14:33 Carlos Grimes MD is Attending Physician. kb 15:12 Arm band placed on Patient placed in an exam room, on a stretcher. ll1 15:22 Triage completed. ll1 15:39 Inserted saline lock: 20 gauge in left antecubital area, using aseptic technique. Blood ll1 collected. 15:40 BMP Sent. ll1 15:40 CBC with Diff Sent. ll1 16:02 CT Head C Spine In Process Unspecified. EDHI 16:12 Patient has correct armband on for positive identification. Placed in gown. Bed in low jb4 position. Call light in reach. Side rails up X 1. Provided Education on: plan of care. 17:09 UA Rfx Brady Cult if indicated Sent. ll1 18:07 No provider procedures requiring assistance completed. IV discontinued, intact, jb4 bleeding controlled, No redness/swelling at site. Pressure dressing applied. Administered Medications: 16:28 Drug: Potassium PO Effervescent Tablet 50 mEq PO once; dissolve in 4 ounces of water or ll1 juice Route: PO; 18:07 Follow up: Response: No adverse reaction jb4 Medication: 16:12 VIS not applicable for this client. 1 Outcome: 17:24 Discharge ordered by MD. torres 18:07 Discharged to home via wheelchair, with family, [facility] 18:07 Condition: stable 18:07 Discharge instructions given to patient, Instructed on discharge instructions, follow up and referral plans. Demonstrated understanding of instructions, follow-up care, 18:07 Patient left the ED. [facility] Signatures: Dispatcher [employer] EDHI Aditi Andrade, GAMEMASTER-C GAMEMASTER-CkGet Burkett, RN RN jb4 Lanette Sorenson RN RN ll1 Julia Carver cj3 Corrections: (The following items were deleted from the chart) 18:05 16:12 General: Appears in no apparent distress. comfortable, Behavior is calm, jb4 cooperative, appropriate for age, [facility] 18:05 16:12 Pain: Denies pain. [facility] jb4 18:05 16:12 Neuro: Level of Consciousness is awake, alert, obeys commands, Oriented to jb4 person, place, time, situation, [facility] 18:05 16:12 Cardiovascular: Patient's skin is warm and dry. [facility] jb4 18:05 16:12 Respiratory: Airway is patent Respiratory effort is even, unlabored, Respiratory jb4 pattern is regular, symmetrical, [facility] 18:05 16:12 Derm: Skin is intact, Skin is pink, warm \T\ dry. [facility] jb4 18:05 16:12 Musculoskeletal: Circulation, motion, and sensation intact. Range of motion: jb4 intact in all extremities, ll1
[2025-01-21 18:58] VITALS: TEMP 98.5
[2025-01-21 19:05] VITALS: BP 146/81; O2SAT 99
== END 2025-01-21 18:07 | disposition home or self-care (01) ==
LOC: ER 14:20
DX: S00.83XA Contusion of other part of head, initial encounter (principal); W06.XXXA Fall from bed, initial encounter; E87.6 Hypokalemia; F17.210 Nicotine dependence, cigarettes, uncomplicated
CPT/HCPCS: 36415; 70450; 72125; 80048; 81001; 85025; 99284